=== PATIENT | male | born 1945 | race Caucasian/White ===

== ENCOUNTER 2022-04-12 07:05 | Day surgery (SDC) | payer MEDICARE, OTHER, SELFPAY ==
[2022-04-12] VITALS (9 sets, daily range): BP systolic 103–131; BP diastolic 55–80; PULSE 56–73; RESP 16–18; TEMP 36.7–37.1; O2SAT 16–98; BMI 28.4
[2022-04-12] MEDS: Lactated Ringers 1,000 ML 15 ML IV (07:30)
--- NOTE | 2022-04-12 08:42 | PCM.HP.BLA ---
History and Physical Date of Admission: 04/12/22 Intake Vital Signs ? 04/11/2208:21 Height 5 ft 10 in Weight: 198 lb 6 oz BMI 28.4 BP 130/71 H Blood Pressure Location Rt brachial Position Sitting Respiration 16 Pulse 96 Pulse Source Monitor Temp 97.5 F L Temp Source Temporal Pulse Oximetry (%) 100 Oxygen Delivery Method room air Intake Visit Reasons:?PORT PLACEMENT Chief Complaint: port placement Concrete Tester Required: No Is patient in pain?: No Allergies No Known Drug Allergies Allergy (Unknown, Verified 04/11/22 08:23) Other Medications hydrochlorothiazide 12.5 mg capsule 12.5 mg PO DAILY 03/18/22 [History Confirmed 04/11/22] tamsulosin 0.4 mg capsule 0.4 mg PO DAILY 03/18/22 [History Confirmed 04/11/22] rosuvastatin 5 mg tablet 5 mg PO DAILY 03/24/22 [History Confirmed 04/11/22] allopurinol 300 mg tablet 300 mg PO DAILY 30 days #30 tabs 04/06/22 [Rx Confirmed 04/11/22] valsartan 320 mg tablet 160 mg PO DAILY 04/06/22 [History Confirmed 04/11/22] lidocaine-prilocaine 2.5 %-2.5 % topical cream 1 applic topical ONCE PRN port access 30 days #30 grams 04/07/22 [Rx Confirmed 04/11/22] ondansetron 4 mg disintegrating tablet 4 mg PO Q8H PRN nausea and vomiting #30 tabs 04/07/22 [Rx Confirmed 04/11/22] PFSH Medical History? Encounter for education Follicular lymphoma Hypercholesterolemia Hypertension Lipoma of skin and subcutaneous tissue Surgical History? Hx of hernia repair Social History? household members:? spouse Smoking Status:? Never smoker alcohol intake:? never substance use type:? does not use caffeine:? Yes Type: coffee Number of servings: 1 HPI HPI HPI: 76-year-old male here for port placement for lymphoma.? Patient has no complaints at this time.? He is starting chemotherapy next week. ROS General General: No weight change, appetite, fatigue, colon cancer, breast cancer or weakness HEENT HEENT: No difficulty swallowing, eye injury, eye surgery, swollen glands or hoarseness Endo Endocrine: No thyroid disease, diabetes mellitus, thyroid cancer, Hair loss, heat intolerance or cold intolerance Skin Skin: No rash or changing moles Breast Breast: No left breast lump, right breast lump, nipple discharge, breast pain, abnormal mammogram, abnormal US or breast enlargement Musc Musculoskeletal: No back problems, arthritis, rheumatoid arthritis, gout or joint pain Cardio Cardiovascular: Yes high blood pressure; No murmur, pacemaker, heart disease, atrial fibrillation, heart attack, heart stent, palpitations, shortness of breat with exertion or chest pain Psych Psychiatric: No depression, anxiety or hearing voices Resp Respiratory: No shortness of breath, No sleep apnea, No cough, No COPD, No asthma, No emphysema and No wheezing Gastro Gastrointestinal: No abdominal pain, No nausea or vomiting, No diarrhea, No constipation, No blood in stool, No acid reflux, No hemorrhoids, No ulcers, No gallbladder problem and No black,tarry stools Jake Hematologic: No blood thinners, No blood disorders, No bleeding, No anemia and No blood clots Neuro Neurologic: No system reviewed and no additional complaints, except as documented, No as per HPI, No abnormal gait, No abnormal hearing, No abnormal movements, No abnormal speech, No behavioral changes, No burning sensations, No confusion, No convulsions, No disequilibrium, No dizziness, No localized weakness, No frequent falls, No headache(s), No lack of coordination, No loss of vision, No memory loss, No numbness, No other visual disturbances, No radicular pain, No restless legs, No sensory deficit, No syncope, No tingling, No tremor(s), No weakness and No other Exam Const General: cooperative Orientation: alert and oriented x3 HENMT Head: normal to inspection Neck Neck: normal visual inspection and full ROM Chest Chest palpation & inspection: normal inspection of the chest Resp Effort & Inspection: normal respiratory effort Auscultation: clear to auscultation bilaterally Cardio Rate: regular rate Rhythm: regular rhythm GI Inspection: non-distended Palpation: soft and nontender Skin General: no rashes or lesions noted Neuro General: patient alert and patient oriented x3 Extrem General: full ROM Psych Appearance: grossly normal Mental Status: mental status grossly normal Assessment and Plan Assessment and Plan (1) Encounter for insertion of venous access port: ?Status:?Acute ?Plan: I guess for placement with the patient in detail.? I discussed right chest placement.? I discussed the risks of the procedure including not limited to bleeding, infection, pneumothorax, DVT formation.? Patient understands all the risks as well to proceed with right chest port placement. Harrison Ag MD Pager: [facility] [address] [place] [address] [address] [place] [address] Office: I have re-examined the patient. There are no clinical changes since date of exam.
[2022-04-12] MEDS: Cefazolin 2 GM in 0.9% Normal Saline 100 ML IV (09:06)
[2022-04-12] MEDS: Lidocaine 1% /Epi 1:100 (20ml) 20 ML Vial (09:21)
--- NOTE | 2022-04-12 09:47 | RAD_ITS ---
INDICATION: line placement -- in pacu EXAMINATION/TECHNIQUE: X-RAY - XR Chest 1 View COMPARISON: None. FINDINGS: LINES/DEVICES: Right chest port visualized with catheter tip in the SVC. LUNGS: No consolidation, edema or effusion. No evidence of parenchymal contusion or pneumothorax. MEDIASTINUM AND CARDIOVASCULAR STRUCTURES: Cardiac silhouette not enlarged. Central airways and mediastinal contour are unremarkable. BONES AND SOFT TISSUES: Unremarkable. RAD/CXR for Line Placement IMPRESSION: Right chest port visualized with catheter tip in the SVC. No evidence of parenchymal contusion or pneumothorax. Electronically Signed: Tomy Mccurdy MD at 10:16 EDT ,
--- NOTE | 2022-04-12 09:47 | OP.PCM_ITS ---
Report of Operation Date of Procedure: 04/12/22 Pre-Operative Diagnosis: Lymphoma and need for vascular access for chemotherapy Post-Operative Diagnosis: Same Surgery/Procedure Performed:: Ultrasound and fluoroscopy guided right chest port placement utilizing right IJ Description of Procedure: After obtaining informed consent patient was brought back to the operating room MAC anesthesia was induced and the right chest and neck were prepped in normal sterile fashion. Ultrasound was used to evaluate both IJs and the right IJ was selected. Next, using a needle, the right IJ was accessed and a guidewire was passed on into the superior vena cava under fluoroscopy guidance. A small incision was made over the puncture site and the dilator introducer was placed over the guidewire. Next this was capped and the pocket was made for the port. 1% lidocaine with epinephrine was injected in the proposed port site. An incision was made with scalpel. Electrocautery was used to make a pocket under the skin and subcutaneous tissue. Hemostasis was obtained. Next, the catheter was tunneled up to the neck incision site and placed through the introducer. The peel-away introducer was removed and the position of the catheter was confirmed on fluoroscopy. Next, the catheter was trimmed and attached to the port with the locking device. Interrupted 2-0 Vicryl sutures were used to anchor the port to the chest wall and then the port was placed inside the pocket. The pocket was then flushed with saline and the port irrigated with saline. There was good blood return and the port flushed easily. Next, heparin was injected into the port. The skin was closed with subcutaneous interrupted 3-0 Vicryl sutures. A single 3-0 Vicryl sutures placed under the skin at the neck incision site. Steri-Strips were placed as well as op sites. Patient tolerated procedure well, was taken to PACU in stable condition. Chest x-ray will be obtained. Grafts/Implants Used: 8 [place] PowerPort Admit VTE Documentation VTE Mechan Device Prophylaxis: SCD's
--- NOTE | 2022-04-12 09:49 | DCINST_ITS ---
Discharge Instructions Procedure Port-A-Cath Diet Discharge Diet: Light diet - advance as tolerated (Pain medication may cause nausea. You should typically eat light foods as you take your pain medication.) Activity Discharge Activity: Return to Normal Activity and May Shower (with your bandage in place in 1-2 days after surgery. DO NOT SHOWER WHEN YOUR PORT IS ACCESSED.) Dressing / Incision Call your doctor if your incision/area has: Continuous Slow Oozing, Sudden Increased Bleeding, Increased Pain/ Swelling, Increased Redness and Foul Smelling Discharge Call your doctor if you observe: Fever of 101 or Higher Remove Dressing in: 2 days Cleanse incision/area with: Soap & Water Follow Up Care Please Follow Up With: Harrison Ag MD When: as needed [phone] Test Results: Test results from this visit will be discussed in further detail at your follow- up appointment, if applicable. Discharge Plan Admission Attending Provider: Harrison Ag Primary Care Provider: Jensen Kennedy NP Instructions Additional Instructions / Restrictions: Ibuprofen and Tylenol for pain Discharge Orders/Prescriptions Prescriptions: No Action hydrochlorothiazide 12.5 mg capsule 12.5 mg PO DAILY tamsulosin 0.4 mg capsule 0.4 mg PO DAILY valsartan 320 mg tablet 160 mg PO DAILY lidocaine-prilocaine 2.5-2.5 % cream 1 applic topical ONCE PRN (Reason: port access) 30 Days Qty: 30 2RF ondansetron 4 mg tablet,disintegrating 4 mg PO Q8H PRN (Reason: nausea and vomiting) Qty: 30 2RF allopurinol 300 mg tablet 300 mg PO DAILY 30 Days Qty: 30 0RF Rx Instructions: Start April 10 for 1 month, no refills Referrals / Follow Up: Jensen Kennedy NP, [employer] [Primary Care Provider] - Disposition Disposition (needs filled in before D/C Order can be placed): Home, Self Care
== END 2022-04-12 11:08 | disposition home or self-care (01) ==
LOC: SDC 07:07 → AC 07:09
PROVIDERS: PCP Nurse Practitioner Family; Referring Provider Surgery; Visit Provider Surgery
PROC: (CPT 36561; principal; 2022-04-12 09:00)
DX: Z45.2 Encounter for adjustment and management of vascular access device (principal); C82.90 Follicular lymphoma, unspecified, unspecified site; E78.00 Pure hypercholesterolemia, unspecified; I10 Essential (primary) hypertension; Z79.899 Other long term (current) drug therapy
CPT/HCPCS: 36561; 00532; 71045; 77001; J7120; C1788

== ENCOUNTER → 2022-07-06 | Outpatient (CLI) | payer MEDICARE, OTHER, SELFPAY ==
--- NOTE | 2022-07-06 13:00 | CT_ITS ---
STUDY: CT BRAIN WITH AND WITHOUT CONTRAST REASON FOR EXAM: Male, 76 years old. MONITOR LYMPHOMA RADIATION DOSAGE (If Supplied By Facility): CTDIvol = ( 44.99 ) mGy, DLP = ( 1659.71 ) mGycm TECHNIQUE: Transaxial CT imaging of the brain was performed pre and post contrast administration. The examination was performed with intravenous administration of 100 CC ISOVUE 300. Individualized dose optimization techniques were used for this CT. COMPARISON: None. FINDINGS: Normal soft tissue structures. Normal calvarium. Normal size ventricles and extra-axial spaces for the patient''s age. Normal white matter tracts of the cerebral hemispheres. Normal basal ganglia and thalami. Normal brainstem. Normal cerebellum. There is no intracranial hemorrhage. There are no findings of an acute ischemic infarction. There is partial opacification of the maxillary sinuses bilaterally. Mucosal thickening of the ethmoid sinuses. CT/Brain/Head W/WO Contrast IMPRESSION: Normal unenhanced and enhanced CT scan of the brain. Sinusitis. Electronically Signed: Ernesto Zapata MD at 14:40 EST ,
--- NOTE | 2022-07-06 13:00 | CT_ITS ---
STUDY: CT SOFT TISSUE NECK WITH CONTRAST REASON FOR EXAM: Male, 76 years old. Restaging lymphoma while on treatment RADIATION DOSAGE (If Supplied By Facility): CTDIvol = ( 17.15 ) mGy, DLP = ( 535.67 ) mGycm TECHNIQUE: The patient was scanned in a multi-detector CT scanner. High resolution transaxial imaging was performed following intravenous administration of 100 CC ISOVUE 300. Sagittal and coronal images were reconstructed. Individualized dose optimization techniques were used for this CT. COMPARISON: None. FINDINGS: A right-sided portacatheter is seen with the tip in the superior vena cava. There is a 1.3 cm x 1.4 cm heterogeneous enhancing soft tissue mass in the right orbit posterior to the globe. This abuts the adjacent ocular muscle. Normal bilateral parotid glands. Normal bilateral bucket wash operator spaces. Normal bilateral parapharyngeal spaces. Normal bilateral carotid spaces. Normal bilateral sublingual and submandibular glands and spaces. Normal visualized nasopharynx. Normal retropharyngeal space. Normal perivertebral space. Normal visualized bilateral faucial tonsils. The visualized tongue, tongue base and oropharynx are normal. The visualized cervical lymph nodes (levels I-) are within normal size limits, and maintain normal morphology. There is no demonstrated solid or cystic mass lesion. There is no abnormal contrast enhancement. Normal epiglottis, bilateral vallecula and hypopharynx. The pre-epiglottic and paraglottic adipose spaces are normal. Normal visualized bilateral piriform sinuses, aryepiglottic folds, vocal cords, and arytenoid-cricoid articulations. Normal subglottic trachea. Normal bilateral lobes of the thyroid gland. Normal visualized pulmonary apices. Partial opacification of the maxillary sinuses bilaterally. There is multilevel degenerative changes of the cervical spine. CT/Soft Tissue Neck WITH Contrast IMPRESSION: 1.3 cm x 1.4 cm inhomogeneously enhancing mass in the right orbit just posterior to the right globe. A neoplastic process should be able. Partial opacification of the maxillary sinuses bilaterally. Electronically Signed: Ernesto Zapata MD at 14:46 EST ,
[2022-07-06] MEDS: 0.9% Saline Lock 10 ML Syringe IV (13:20)
== END | disposition home or self-care (01) ==
LOC: CT 12:58
PROVIDERS: PCP Nurse Practitioner Family; Referring Provider Internal Medicine Hematology & Oncology; Visit Provider Internal Medicine Hematology & Oncology
DX: C85.81 Other specified types of non-Hodgkin lymphoma, lymph nodes of head, face, and neck (principal); C82.90 Follicular lymphoma, unspecified, unspecified site
CPT/HCPCS: 70470; 70491; Q9967; A4216

== ENCOUNTER → 2022-08-02 | Outpatient (CLI) | payer MEDICARE, OTHER, SELFPAY ==
--- NOTE | 2022-08-02 08:11 | MRI_ITS ---
STUDY: MRI ORBITS WITH AND WITHOUT CONTRAST REASON FOR EXAM: Male, 76 years old. NODULE BEHIND R ORBITAL, f/u to ct scan, no vision issues, hx B cell lymphoma TECHNIQUE: Standardized fat and water weighted pulse sequences were obtained in all 3 orthogonal planes, pre-and post contrast administration. IV 17ml Clariscan was administered for the contrast portion of the examination. COMPARISON: Whole body PET/CT fusion scan 03/30/2022. CT head without contrast and CT neck with contrast 07/06/2022. FINDINGS: 1.6 x 1.5 x 1.2 cm solid mass in the lateral caudal aspect of the right orbital fossa with contrast enhancement. The extraocular muscles, lacrimal gland, optic nerves and optic nerve sheath in the right orbital fossa are normal. Normal left orbital globe, left optic nerve, left optic nerve sheath, left lacrimal gland and left extraocular muscles. Normal optic chiasm and post-chiasmatic tracts. Normal sella turcica, pituitary gland, infundibular stalk, and hypothalamus. Normal bilateral cavernous sinuses. Normal tectal plate and pineal gland. Normal flow voids within the major intracranial circulation suggesting patency by spin echo criteria. Normal size of the ventricles and extra-axial spaces for the patient''s age. Normal white matter tracts of the supratentorial brain. Normal bilateral basal ganglia. Normal thalami. There is no extra-axial fluid accumulation. Normal midbrain, janette and medulla. Normal cerebellum. Normal basal cisterns. MRI/Orbit Face Neck W/WO Contrast IMPRESSION: 1. 1.6 x 1.5 x 1.2 cm solid enhancing mass in the lateral caudal aspect of the right orbital fossa without involvement of the lacrimal gland, optic nerve, extraocular muscles and orbital globe. This is worrisome for lymphoma but this is not FDG avid and unchanged when compared to whole body PET/CT fusion scan of 03/30/2022. 2. Focal atrophy and collapse of the left temporal scalp mass. This mass was previously FDG avid on the PET/CT fusion scan of 03/30/2022. 3. Interval collapse of the right lateral frontal scalp mass which was previously FDG avid on PET/CT fusion scan of 03/30/2022. Electronically Signed: Alin Salter MD at 12:01 EST ,
== END | disposition home or self-care (01) ==
LOC: MRI 08:02
PROVIDERS: PCP Nurse Practitioner Family; Visit Provider Internal Medicine Hematology & Oncology
DX: R22.0 Localized swelling, mass and lump, head (principal)
CPT/HCPCS: 70543; A9575

== ENCOUNTER → 2023-02-20 | Outpatient (CLI) | payer MEDICARE, OTHER, SELFPAY ==
--- NOTE | 2023-02-20 07:00 | MRI_ITS ---
STUDY: MRI ORBITS WITH AND WITHOUT CONTRAST REASON FOR EXAM: Male, 77 years old. F/U RIGHT ORBIT NODULE TECHNIQUE: Standardized fat and water weighted pulse sequences were obtained in all 3 orthogonal planes, pre-and post contrast administration. IV 19 CC CLARISCAN was administered for the contrast portion of the examination. COMPARISON: None. FINDINGS: 1.38 x 0.90 cm intensely enhancing right lateral retrobulbar mass; favor meningioma or hemangioma, however definitive diagnosis would require tissue sampling or excision. The mass does not infiltrate into the adjacent structures or the overlying optic nerve complex but does make contact with the investing sheath of the lateral rectus muscle which is slightly thickened at its point of contact. Mild bilateral optic neuritis is also present with slight fluid distention nerve sheath at the optic insertion sites. Normal bilateral globes. Normal bilateral optic nerves. Normal bilateral intraconal and extraconal spaces. Normal bilateral extraocular muscles. Normal optic chiasm and post-chiasmatic tracts. Normal sella turcica, pituitary gland, infundibular stalk, and hypothalamus. Normal bilateral cavernous sinuses. Normal tectal plate and pineal gland. IMPRESSION: 1. 1.38 x 0.90 cm intensely enhancing right lateral retrobulbar mass; favor meningioma or hemangioma, however definitive diagnosis would require tissue sampling or excision. The mass does not infiltrate into the adjacent structures or the overlying optic nerve complex but does make contact with the investing sheath of the lateral rectus muscle which is slightly thickened at its point of contact. 2. Mild bilateral optic neuritis is also present with slight fluid distention nerve sheath at the optic insertion sites. STUDY: MRI BRAIN WITH AND WITHOUT CONTRAST FINDINGS: Normal size of the ventricles and extra-axial spaces for the patient''s age. Normal white matter tracts of the supratentorial brain. There is no evidence for recent intracranial ischemia or other cause of cytotoxic edema on diffusion weighted imaging (DWI). Normal T2* images of the brain without demonstrated susceptibility artifact. There is no demonstrated hemosiderin stain. There are no focal brain parenchymal lesions or edema. There is no abnormal enhancement of the brain parenchyma or meninges or dura. Normal bilateral basal ganglia. Normal thalami. There is no extra-axial fluid accumulation. Normal flow voids within the major intracranial circulation suggesting patency by spin echo criteria. Normal venous enhancement. There is no enhancing intra-axial or extra-axial abnormality. Normal sella turcica, pituitary gland, infundibular stalk, optic chiasm and hypothalamus. Normal tectal plate and pineal gland. Normal midbrain, janette and medulla. Normal cerebellum. Normal basal cisterns. Normal bilateral temporal bones. Normal bilateral internal auditory canals. Moderate-sized mucus retention cyst is present in the floor of the right maxillary sinus. Mild mucosal thickening is also present in the left maxillary sinus and ethmoid air cells. Normal calvarium and skull base. Normal visualized soft tissue structures. Normal visualized upper cervical spine. MRI/Orbit Face Neck W/WO Contrast IMPRESSION: 1. Normal unenhanced and enhanced MRI of the brain. 2. There are no focal brain parenchymal lesions or edema. There is no abnormal enhancement of the brain parenchyma or meninges or dura. Electronically Signed: Meet Landry MD at 12:21 EDT Reading Location ID and State: [facility] / [place] , Service support ,
[2023-02-20 07:56] LABS: CREATININE FINGERSTICK 0.9 mg/dL (0.70-1.30); EGFR FINGERSTICK > 60.0000 mL/min (>60)
== END | disposition home or self-care (01) ==
LOC: MRI 06:58
PROVIDERS: PCP Nurse Practitioner Family; Referring Provider Internal Medicine Hematology & Oncology; Visit Provider Internal Medicine Hematology & Oncology
DX: D49.89 Neoplasm of unspecified behavior of other specified sites (principal)
CPT/HCPCS: 70543; A9575

== ENCOUNTER → 2023-06-12 | Outpatient (CLI) | payer MEDICARE, OTHER, SELFPAY ==
--- NOTE | 2023-06-12 12:52 | CT_ITS ---
STUDY: CT BRAIN WITH AND WITHOUT CONTRAST REASON FOR EXAM: Male, 77 years old. Severe headache, known lymphoma RADIATION DOSAGE (If Supplied By Facility): CTDIvol = ( 44.99 ) mGy, DLP = ( 1580.97 ) mGycm TECHNIQUE: Transaxial CT imaging of the brain was performed pre and post contrast administration. The examination was performed with intravenous administration of IV 100mL Isovue-300. Individualized dose optimization techniques were used for this CT. COMPARISON: None. FINDINGS: Normal soft tissue structures. Normal calvarium. Normal size ventricles and extra-axial spaces for the patient''s age. Normal white matter tracts of the cerebral hemispheres. Normal basal ganglia and thalami. Normal brainstem. Normal cerebellum. There is no intracranial hemorrhage. There are no findings of an acute ischemic infarction. Mucous retention cysts/polyps in the maxillary sinuses CT/Brain/Head W/WO Contrast IMPRESSION: Age consistent changes, no acute findings Electronically Signed: Celio Perez MD at 15:04 EST ,
--- NOTE | 2023-06-12 12:52 | CT_ITS ---
INDICATION: F/U HEAD/NECK LYMPHOMA EXTRACRANIAL -- EXTRACRANIAL IV CONT ONLY EXAMINATION: CT NECK WITH CONTRAST - CT Soft Tissue Neck W/ Contrast Injection TECHNIQUE: Helically acquired images were obtained of the neck following IV contrast. A radiation dose optimization technique was used for this scan. IV Contrast dosage and agent: RADIATION DOSAGE (If Supplied By Facility): CTDIvol = ( 16.74 ) mGy, DLP = ( 551.96 ) mGycm COMPARISON: FINDINGS: There is a relatively stable 1.3 cm mass abuts against the right lateral rectus muscle. NASOPHARYNX: Unremarkable. Mucosal thickening of the maxillary sinuses. Possible right with maxillary sinus retention cyst. SUPRAHYOID NECK: Unremarkable oropharynx, oral cavity, parapharyngeal space, and retropharyngeal space. INFRAHYOID NECK: Unremarkable larynx, hypopharynx, and supraglottis. THYROID: No focal lesions. SALIVARY GLANDS: Unremarkable. LYMPH NODES: No cervical or supraclavicular lymphadenopathy. VASCULAR STRUCTURES: There is a right-sided jugular venous line.. VISUALIZED PORTIONS OF THE ORBITS, PARANASAL SINUSES, MASTOID AIR CELLS AND SKULL BASE: Unremarkable. BONES: Degenerative cervical vertebral changes. THORACIC INLET: Right upper lobe calcified granuloma. CT/Soft Tissue Neck WITH Contrast IMPRESSION: Relatively stable right orbital intraconal mass. Electronically Signed: Ellis Martin DO at 22:43 EST Reading Location ID and State: [facility] / [place] Tel [phone], Service support ,
[2023-06-12 13:27] LABS: EGFR FINGERSTICK > 60.0000 mL/min (>60)
[2023-06-12] MEDS: 0.9% Saline Lock 10 ML Syringe IV (13:30)
== END | disposition home or self-care (01) ==
LOC: CT 12:48
PROVIDERS: PCP Nurse Practitioner Family; Referring Provider Internal Medicine Hematology & Oncology; Visit Provider Internal Medicine Hematology & Oncology
DX: C82.90 Follicular lymphoma, unspecified, unspecified site (principal)
CPT/HCPCS: 70470; 70491; Q9967; A4216

== ENCOUNTER → 2023-11-30 | Outpatient (CLI) | payer MEDICARE, OTHER, SELFPAY ==
--- NOTE | 2023-11-30 07:40 | CT_ITS ---
STUDY: CT SOFT TISSUE NECK WITH CONTRAST REASON FOR EXAM: Male, 78 years old. follicular lymphoma RADIATION DOSAGE (If Supplied By Facility): CTDIvol = ( 18.71 ) mGy, DLP = ( 572.03 ) mGycm TECHNIQUE: The patient was scanned in a multi-detector CT scanner. High resolution transaxial imaging was performed following intravenous administration of IV 100mL Isovue-370. Sagittal and coronal images were reconstructed. Individualized dose optimization techniques were used for this CT. COMPARISON: 06/12/2023 FINDINGS: Normal bilateral parotid glands. Normal bilateral presentation designer spaces. Normal bilateral parapharyngeal spaces. Normal bilateral carotid spaces. Normal bilateral sublingual and submandibular glands and spaces. Normal visualized nasopharynx. Normal retropharyngeal space. Normal perivertebral space. Normal visualized bilateral faucial tonsils. The visualized tongue, tongue base and oropharynx are normal. The visualized cervical lymph nodes (levels I-) are within normal size limits, and maintain normal morphology. There is no change in 1.3 cm oval mass of soft tissue attenuation within the intraconal right orbit between the optic nerve, inferior rectus, and lateral rectus. There is no abnormal contrast enhancement. Normal epiglottis, bilateral vallecula and hypopharynx. The pre-epiglottic and paraglottic adipose spaces are normal. Normal visualized bilateral piriform sinuses, aryepiglottic folds, vocal cords, and arytenoid-cricoid articulations. Normal subglottic trachea. Normal bilateral lobes of the thyroid gland. Normal visualized pulmonary apices. Mucous retention cyst in the right mid x-ray sinus consistent with chronic sinusitis. There is multilevel degenerative changes of the cervical spine. Right internal jugular chest port. CT/Soft Tissue Neck WITH Contrast IMPRESSION: No change in right orbital intraconal mass. Electronically Signed: Jensen Palmer MD at 21:41 EDT ,
--- NOTE | 2023-11-30 07:40 | CT_ITS ---
STUDY: CT BRAIN WITH AND WITHOUT CONTRAST REASON FOR EXAM: Male, 78 years old. follicular lymphoma RADIATION DOSAGE (If Supplied By Facility): CTDIvol = ( 47.06 ) mGy, DLP = ( 1674.78 ) mGycm TECHNIQUE: Transaxial CT imaging of the brain was performed pre and post contrast administration. The examination was performed with intravenous administration of IV 100mL Isovue-370. Individualized dose optimization techniques were used for this CT. COMPARISON: 06/12/2023 FINDINGS: Normal soft tissue structures. Normal calvarium. Normal size ventricles and extra-axial spaces for the patient''s age. Normal white matter tracts of the cerebral hemispheres. Normal basal ganglia and thalami. Normal brainstem. Normal cerebellum. There is no intracranial hemorrhage. There are no findings of an acute ischemic infarction. Mucous retention cyst in the right mid x-ray sinus consistent with chronic sinusitis. CT/Brain/Head W/WO Contrast IMPRESSION: Normal unenhanced and enhanced CT scan of the brain. Electronically Signed: Jensen Palmer MD at 21:35 EDT ,
[2023-11-30 08:31] LABS: CREATININE FINGERSTICK 1.2 mg/dL (0.70-1.30)
== END | disposition home or self-care (01) ==
LOC: CT 07:39
PROVIDERS: PCP Nurse Practitioner Family; Referring Provider Nurse Practitioner Family; Visit Provider Nurse Practitioner Family
DX: Z01.812 Encounter for preprocedural laboratory examination (principal)
CPT/HCPCS: 70470; 70491; Q9967

== ENCOUNTER → 2024-10-10 | Outpatient (CLI) | payer MEDICARE, OTHER, SELFPAY ==
--- NOTE | 2024-10-10 07:34 | CT_ITS ---
PROCEDURE: SOFT TISSUE NECK WITH CONTRAST 10/10/2024 REASON FOR EXAM: FOLLICULAR LYMPHOMA Follow-up examination following chemotherapy. TECHNIQUE: CT of the soft tissues of the neck from the orbits to the upper mediastinum with intravenous contrast. CONTRAST: Isovue 370. VOLUME: 79mL One or more dose reduction techniques were used (e.g., Automated exposure control, adjustment of the mA and/or kV according to patient size, use of iterative reconstruction technique). RADIATION DOSE SUMMARY: CTDlvol: 18.54 mGy DLP: 578.8 mGycm COMPARISON: Comparison is made with prior study dated November 30, 2023. FINDINGS: A right-sided port a catheter is seen with the tip in the superior vena cava. Airway: Midline and patent. Salivary glands: Unremarkable. Lymph nodes: No cervical lymphadenopathy. Thyroid: Unremarkable. Vasculature: Carotid arteries and internal jugular veins are unremarkable. Orbits: There is a 1.1 cm x 1.2 cm rounded soft tissue mass in the intraconal region of the right orbit. Paranasal sinuses and mastoids: Partial opacification of the maxillary sinuses more prominent on the right side. Lung apices: Mild emphysematous changes. Upper mediastinum: Visualized mediastinum is unremarkable. Bones: Multilevel degenerative changes of the spine. Other: CT/Soft Tissue Neck WITH Contrast IMPRESSION: NO CERVICAL LYMPHADENOPATHY. 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 Reading Location: [place] [id number]
[2024-10-10] MEDS: 0.9% Saline Lock 10 ML Syringe IV ×2 (07:45→07:50)
[2024-10-10] MEDS: 0.9 % NaCl (Sterile) Posiflush 10 mL IV (07:45)
== END | disposition home or self-care (01) ==
LOC: CT 07:34
PROVIDERS: PCP Nurse Practitioner Family; Referring Provider Nurse Practitioner Family; Visit Provider Nurse Practitioner Family
DX: C82.98 Follicular lymphoma, unspecified, lymph nodes of multiple sites (principal)
CPT/HCPCS: 70491; Q9967; A4216

== ENCOUNTER → 2025-04-14 | Outpatient (CLI) | payer MEDICARE, OTHER, SELFPAY ==
--- NOTE | 2025-04-14 07:31 | CT_ITS ---
PROCEDURE: SOFT TISSUE NECK WITH CONTRAST 04/14/2025 REASON FOR EXAM: SCALP LYMPHOMA F/U TECHNIQUE: Procedure Code: CTNEW Modality: CT Procedure: SOFT TISSUE NECK WITH CONTRAST CONTRAST: 75 cc VOLUME: Isovue 370 mL One or more dose reduction techniques were used (e.g., Automated exposure control, adjustment of the mA and/or kV according to patient size, use of iterative reconstruction technique). RADIATION DOSE SUMMARY: CTDlvol: 18 mGy DLP: 592 mGycm COMPARISON: 09/2024 FINDINGS: Lung apices are clear. Normal thyroid gland. No subglottic airway narrowing. Symmetric vocal folds. Normal epiglottis. Normal submandibular glands. Normal parotid glands. Normal nasopharynx. Normal tongue base. Normal palatine tonsils. No enlarged cervical lymph nodes. No supraclavicular enlarged lymph nodes. 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 This was present previously CT/Soft Tissue Neck WITH Contrast IMPRESSION: No interval change when compared to the prior study. Reading [facility]
--- OUTSIDE RECORDS SUMMARY | 2025-04-14 07:33 | XMS RPT_ITS | CCD ---
Author Organization [facility] CliniSywy Care Team Providers Care Acid Tester Name Role Phone BRENT ESPINAL - MOY REVELES Primary Care Phys ician Brent RECEIVING COORDINATOR, RECEIVING COORDINATOR-C Moy Almodovar Primary Care Pr ovider Brent RECEIVING COORDINATOR, RECEIVING COORDINATOR-C Moy Almodovar Referring Provi liliana Dr. Facundo Beatty Attending Provider Makayla QUIJANO NP-Sarah Beth Dumont Attending Provider Dr. Harrison Ag Attending Provider [phone] Dr. Harrison Ag Referring Provider Dr. Harrison Ag Other Provider Brent RECEIVING COORDINATOR, RECEIVING COORDINATOR-C Moy Almodovar Primary Care Pr ovider Brent RECEIVING COORDINATOR, RECEIVING COORDINATOR-C Moy Almodovar Referring Provi liliana Dr. Facundo Beatty Attending Provider Makayla RECEIVING COORDINATORMACIE-Sarah Beth Dumont Attending Provider Brent RECEIVING COORDINATOR, RECEIVING COORDINATOR-C Moy Almodovar Primary Care Pr ovider Brent RECEIVING COORDINATOR, RECEIVING COORDINATOR-C Moy Almodovar Referring Provi liliana Dr. Facundo Beatty Attending Provider Brent RECEIVING COORDINATOR, RECEIVING COORDINATOR-C Moy Almodovar Primary Care Pr ovider Brent RECEIVING COORDINATOR, RECEIVING COORDINATOR-C Moy Almodovar Referring Provi liliana Dr. Facundo Beatty Attending Provider BRENT HEAD OF DATA - SAND CUTTING MACHINE OPERATOR, MOY Quezada Primary Care U navailable BRENT HEAD OF DATA - SAND CUTTING MACHINE OPERATOR, MOY Quezada Attending U navailable BRENT HEAD OF DATA - SAND CUTTING MACHINE OPERATOR, MOY Quezada Attending U navailable BRENT HEAD OF DATA - SAND CUTTING MACHINE OPERATOR, MOY Quezada Primary Care U navailable [place] RECEIVING COORDINATOR-C, Moy Almodovar Primary Care Provi liliana Brent RECEIVING COORDINATOR-C, Moy Almodovar Referring Provider Makayla RECEIVING COORDINATOR-C, Julia Attending Provider Rogerio LUI, Dr. Loredo Attending Provider Rogerio LUI, Dr. Loredo Referring Provider Makayla RECEIVING COORDINATOR-C, Julia Referring Provider BRENT HEAD OF DATA - SAND CUTTING MACHINE OPERATOR, MOY Quezada Primary Care U navailable BRENT HEAD OF DATA - SAND CUTTING MACHINE OPERATOR, MOY Quezada Attending U navailable BRENT HEAD OF DATA - SAND CUTTING MACHINE OPERATOR, MOY Quezada Attending U navailable BRENT HEAD OF DATA - SAND CUTTING MACHINE OPERATOR, MOY Quezada Primary Care U navailable BRENT HEAD OF DATA - SAND CUTTING MACHINE OPERATOR, MOY Quezada Attending U navailable BRENT HEAD OF DATA - SAND CUTTING MACHINE OPERATOR, MOY Quezada Primary Care U navailable BRENT HEAD OF DATA - SAND CUTTING MACHINE OPERATOR, MOY Quezada Primary Care U liane JUDD MD, DR [facility] Admitting Joleen JUDD MD, DR [facility] Attending Hattievai lable BRENT HEAD OF DATA - SAND CUTTING MACHINE OPERATOR, MOY Quezada Primary Care U liane JUDD MD, DR [facility] Attending Joleen POTTS MD, STORM Miranda Attending Unavail able BRENT HEAD OF DATA - SAND CUTTING MACHINE OPERATOR, MOY Quezada Primary Care U navailable BRENT HEAD OF DATA - SAND CUTTING MACHINE OPERATOR, MOY Quezada Primary Care U yaailable KATLYN LUI, STORM Miranda Attending Unavail able Brent RECEIVING COORDINATOR-C, Moy Almodovar Primary Care Provi liliana Makayla RECEIVING COORDINATOR-C, Julia Attending Provider Brent RECEIVING COORDINATOR-C, Moy Almodovra Referring Provider Rogerio LUI, Dr. Loredo Attending Provider Rogerio LUI, Dr. Loredo Referring Provider Brent RECEIVING COORDINATOR, Moy Almodovar Referring Unav ailable [place] RECEIVING COORDINATOR, Moy Almodovar Primary Care Unav ailable Makayla RECEIVING COORDINATOR, Julia Attending Unavailable [place] RECEIVING COORDINATOR, Moy Almodovar Primary Care Unav ailable Isckarus, Facundo Attending Unavailable [place] RECEIVING COORDINATOR, Moy Almodovar Referring Unav ailable Isckarus, Mansour Attending Unavailable [place] RECEIVING COORDINATOR, Moy Almodovar Referring Unav ailable Brent RECEIVING COORDINATOR, Moy Almodovar Primary Care Unav ailable [place] RECEIVING COORDINATOR, Moy Almodovar Referring Unav ailable Brent RECEIVING COORDINATOR, Moy Almodovar Primary Care Unav ailable Isckarus, Mansour Attending Unavailable [place] RECEIVING COORDINATOR, Moy Almodovar Primary Care Unav ailable Makayla RECEIVING COORDINATOR, Julia Attending Unavailable Makayla RECEIVING COORDINATOR, Julia Referring Unavailable [place] RECEIVING COORDINATOR, Moy Almodovar Primary Care Unav ailable Isckarus, Facundo Attending Unavailable Isckarus, Facundo Referring Unavailable Isckarus, Facundo Referring Unavailable Brent RECEIVING COORDINATOR, Moy Almodovar Primary Care Unav ailable Isckarus, Facundo Attending Unavailable Allergies Allergy Classification Reported Allergen(s) Allergy Type Date of Onset Reaction(s) Facility (6 sources) Sulfamethoxazole / Trimethoprim; Translations: [sulfamethoxazole-tr imethoprim] Drug Allergy Weal (disorder) [facility] Work Phone: Medications Current Medications Medication Drug Class(es) Dates Sig (Normalized) Sig (Original) atorvastatin 10 mg oral tablet (1 source) HMG-CoA Reductase Inhibitor Start: 01-22-2021 End: 10-19-2021 atorvastatin 10 mg oral tablet Dose : 10 mg = 1 tab(s), Oral, qDay, X 90 day(s), # 90 tab(s), 2 Refill(s), 10/19/21 14:01:00 EDT, Pharmacy: [id number], Hyperlipidemia LDL goal Start Date: 01/22/21 Stop Date: 10/19/21 Status: Ordered calcium ascorbate 500 mg oral tablet (3 sources) Start: 03-02-2023 take 1 tablet by mouth once daily Ascorbate Calcium (Vitamin C) 500 mg tablet Active 500 mg PO DAILY March 02, 2023 12:00am cholecalciferol 0.025 mg oral capsule (2 sources) Vitamin D Start: 08-17-2023 take 1 capsule by mouth once daily Cholecalciferol (Vitamin D3) 25 mcg (1,000 unit) capsule Active 25 ug PO DAILY August 17, 2023 1:00am lidocaine 25 mg/ml / prilocaine 25 mg/ml topical cream (6 sources) Antiarrhythmic, Amide Local Anesthetic Start: 04-07-2022 Lidocaine-Prilocaine 2.5-2.5 % cream Active 1 NMA TOPICAL ONCE as needed for port access April 07, 2022 12:00am Start: 04-07-2022 Lidocaine-Pril ocaine Active 1 APPLIC TOPICAL ONCE April 06, 2022 11:00pm ondansetron 4 mg disintegrating oral tablet (6 sources) Serotonin-3 Receptor Antagonist Start: 04-07-2022 take 1 tablet by mouth every eight hours as needed for nausea and vomiting Ondansetron 4 mg tablet,disintegrating Active 4 mg PO Q8H as needed for nausea and vomiting April 07, 2022 12:00am AD (3 sources) Start: 07-04-2023 AD Oral, qDay, 0 Refill(s) Start Date: 07/04/23 Status: Ordered Repeat number: 1 Start: 07-04-2023 AD Or al, qDay, 0 Refill(s) Start Date: 07/04/23 Status: Ordered Vit-Iron Fum-Folic Ac ( Vitamin With Minerals) 28 mg iron- 800 mcg tablet (4 sources) Start: 01-05-2023 Vit-I ayden Fum-Folic Ac ( Vitamin With Minerals) 28 mg iron- 800 mcg tablet Active 1 {tbl} PO DAILY January 05, 2023 12:00am Start: 01-05-2023 take 1 tablet by paul th once daily before mealtime Vit-Iron Fum-Folic Ac ( Vitamin With Minerals) 28 mg iron- 800 mcg tablet Active 1 TABLET PO DAILY January 04, 2023 11:00pm Start: 01-05-2023 take 1 tablet by paul th once daily before mealtime Vit-Iron Fum-Folic Ac ( Vitamin With Minerals) 28 mg iron- 800 mcg tablet Active 1 TABLET PO DAILY January 05, 2023 12:00am sildenafil 50 mg oral tablet (5 sources) Phosphodiesterase 5 Inhibitor Start: 07-08-2024 End: 01-04-2025 Viagra 50 mg oral tablet Dose : 50 mg = 1 tab(s), Oral, qDay, as needed, # 6 tab(s), 5 Refill(s), Pharmacy: [id number], ED (erectile dysfunction), 174, cm, 07/08/24 8:32:00 EST, Height, kg, 07/08/24 8:32:00 EST, Dosing Weight Start Date: 07/08/24 Stop Date: 01/04/25 Status: Ordered Start: 07-04-2023 End: 12-31-2023 Viagra 50 mg oral tablet Dos e : 50 mg = 1 tab(s), Oral, qDay, as needed, # 6 tab(s), 5 Refill(s), Pharmacy: [id number], ED (erectile dysfunction), 174, cm, 07/04/23 8:08:00 EST, Height, kg, 07/04/23 8:08:00 EST, Dosing Weight Start Date: 07/04/23 Stop Date: 12/31/23 Status: Ordered Start: 07-01-2022 End: 06-25-2023 Viagra 50 mg oral tablet Dos e : 50 mg = 1 tab(s), Oral, qDay, as needed, # 6 tab(s), 5 Refill(s), Pharmacy: [id number], ED (erectile dysfunction), 175, cm, 12/27/22 8:58:00 EDT, Height, kg, 12/27/22 8:58:00 EDT, Dosing Weight Start Date: 12/27/22 Stop Date: 06/25/23 Status: Ordered Start: 12-24-2020 End: 07-22-2021 Viagra 50 mg oral tablet Dos e : 50 mg = 1 tab(s), Oral, qDay, as needed, # 6 tab(s), 6 Refill(s), Pharmacy: [id number], ED (erectile dysfunction), 175, cm, 12/24/20 8:01:00 EDT, Height, kg, 12/24/20 8:01:00 EDT, Dosing Weight Start Date: 12/24/20 Stop Date: 07/22/21 Status: Ordered tamsulosin hydrochloride 0.4 mg oral capsule (11 sources) alpha-Adrenergic Tahmina Start: 03-18-2022 End: 01-16-2025 Flomax 0.4 mg oral capsule Dose : 0.4 mg = 1 cap(s), Oral, qDay, # 90 cap(s), 1 Refill(s), Pharmacy: [id number], BPH without urinary obstruction, 174, cm, 07/08/24 8:32:00 EST, Height, kg, 07/08/24 8:32:00 EST, Dosing Weight Start Date: 07/08/24 Stop Date: 01/04/25 Status: Ordered Start: 12-24-2020 End: 09-20-2021 Flomax 0.4 mg oral capsule D ose : 0.4 mg = 1 cap(s), Oral, qDay, # 90 cap(s), 2 Refill(s), Pharmacy: [id number], BPH without urinary obstruction, 175, cm, 12/24/20 8:01:00 EDT, Height, kg, 12/24/20 8:01:00 EDT, Dosing Weight Start Date: 12/24/20 Stop Date: 09/20/21 Status: Ordered valsartan 80 mg oral tablet (20 sources) Angiotensin 2 Receptor Tahmina Start: 01-16-2025 take 1 tablet by mouth once daily Valsartan 80 mg tablet Active 80 mg PO DAILY January 16, 2025 2:57pm Start: 07-08-2024 Diovan 80 mg o ral tablet Dose : 80 mg = 1 tab(s), Oral, qDay, # 90 tab(s), 1 Refill(s), Pharmacy: [id number], HTN, goal below 140/90, 174, cm, 07/08/24 8:32:00 EST, Height, kg, 07/08/24 8:32:00 EST, Dosing Weight Start Date: 07/08/24 Status: Ordered Quantity: 90.0 Unit: tab(s) Repeat number: 2 Indications: Essential (primary) hypertension; Start: 07-04-2023 Diovan 80 mg o ral tablet Dose : 80 mg = 1 tab(s), Oral, qDay, # 90 tab(s), 1 Refill(s), Pharmacy: [id number], HTN, goal below 140/90, 174, cm, 07/04/23 8:08:00 EST, Height, kg, 07/04/23 8:08:00 EST, Dosing Weight Start Date: 07/04/23 Status: Ordered Start: 03-02-2023 End: 01-16-2025 take 2 tablets by mouth once daily Valsartan 80 mg tablet Discontinued 160 mg PO DAILY March 02, 2023 10:10am January 16, 2025 2:58pm Start: 03-02-2023 take 160 mg by mouth once gerber y Valsartan Active 160 MG PO DAILY March 02, 2023 9:10am Start: 12-27-2022 End: 03-02-2023 take 1 tablet by mouth once daily Valsartan 80 mg tablet Discontinued 80 mg PO DAILY January 05, 2023 12:00am March 02, 2023 10:10am Start: 07-01-2022 End: 10-29-2022 Diovan 160 mg oral tablet Do se : 160 mg = 1 tab(s), Oral, qDay, # 90 tab(s), 1 Refill(s), Pharmacy: [id number], 175, cm, 07/01/22 8:17:00 EST, Height, kg, 07/01/22 8:17:00 EST, Dosing Weight Start Date: 07/01/22 Stop Date: 10/29/22 Status: Ordered Start: 04-06-2022 End: 01-05-2023 Valsartan 320 mg tablet Disc ontinued 160 mg PO DAILY April 06, 2022 2:50pm January 05, 2023 8:49am Start: 04-06-2022 End: 01-05-2023 take 160 mg by mouth once daily Valsartan Discontinued 160 MG PO DAILY April 06, 2022 1:50pm January 05, 2023 7:49am Start: 03-18-2022 End: 04-06-2022 take 1 tablet by mouth once daily Valsartan 320 mg tablet Discontinued 320 mg PO DAILY March 18, 2022 12:00am April 06, 2022 2:51pm Start: 12-24-2020 End: 09-20-2021 Diovan 320 mg oral tablet Do se : 320 mg = 1 tab(s), Oral, qDay, Discontinue the Ramipril, # 90 tab(s), 2 Refill(s), Pharmacy: [facility], HTN, goal below 140/90, 175, cm, 12/24/20 8:01:00 EDT, Height, kg, 12/24/20 8:01:00 EDT, Dosing Weight Start Date: 12/24/20 Stop Date: 09/20/21 Status: Ordered Completed/Discontinued Medications Medication Drug Class(es) Dates Sig (Normalized) Sig (Original) allopurinol 300 mg oral tablet (6 sources) Xanthine Oxidase Inhibitor Start: 2 End: 3 Allopurinol 300 mg tablet Discontinued 300 mg PO DAILY April 06, 2022 12:00am November 07, 2022 2:28pm Start April 10 for 1 month, no refills hydroCHLOROthiazide 12.5 mg oral capsule (12 sources) Thiazide Diuretic Start: 2 End: 5 hydroCHLOROthiazide 12.5 mg oral capsule Dose : 12.5 mg = 1 cap(s), Oral, qDay, 0 Refill(s), HTN, goal below 140/90 Start Date: 11/08/24 Status: Ordered Repeat number: 1 Indications: Essential (primary) hypertension; rosuvastatin calcium 5 mg oral tablet (9 sources) HMG-CoA Reductase Inhibitor Start: 2 End: 5 rosuvastatin 5 mg oral tablet Dose : 5 mg = 1 tab(s), Oral, qDay, Discontinue atorvastatin secondary to intolerance, # 90 tab(s), 1 Refill(s), Pharmacy: [facility], Hyperlipidemia LDL goal Start Date: 07/08/24 Stop Date: 01/04/25 Status: Ordered Quantity: 90.0 Unit: tab(s) Repeat number: 2 Indications: Hyperlipidemia, unspecified; Problems Active Problems Problem Classification Problem Date Documented Date Episodic/Chronic Abdominal pain (2 sources) Unspecified abdominal pain; Translations: [Unspecified abdominal pain] Onset: 5 Episodic Administrative/socia l admission (13 sources) Patient encounter status; Translations: [Counseling, unspecified] Episodic Chronic kidney disease (5 sources) Chronic kidney disease stage 3 12-30-2021 Chronic Chronic kidney disease (4 sources) Chronic kidney disease; Translations: [Chronic kidney disease, stage 3 unspecified] Onset: 3 Disorders of lipid metabolism (16 sources) Hyperlipidemia; Translations: [Hypercholesterolemia] Onset: 4 12-26-2019 Chronic Essential hypertension (17 sources) Hypertensive disorder; Translations: [Essential (primary) hypertension] Onset: 3 06-25-2019 Chronic Comment on above: CONTROLLED WITH MEDS Fluid and electrolyte disorders (6 sources) Hyperkalemia 06-24-2019 Episodic Genitourinary symptoms and ill-defined conditions (1 source) Other retention of urine; Translations: [Other retention of urine] Onset: 5 Episodic Hyperplasia of prostate (6 sources) Benign prostatic hypertrophy without outflow obstruction 12-26-2019 Chronic Neoplasms of unspecified nature or uncertain behavior (17 sources) Neoplasm of orbit; 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] Onset: 5 Episodic Non-Hodgkin`s lymphoma (20 sources) Follicular non-Hodgkin's lymphoma; Translations: [Follicular lymphoma, unspecified, unspecified site] Onset: 3 Chronic Comment on above: B CELL Other aftercare (1 source) Encounter for adjustment and management of vascular access device; Translations: [Fitting and adjustment of vascular catheter] Episodic Other and unspecified benign neoplasm (6 sources) Lipoma of skin and subcutaneous tissue; Translations: [Benign lipomatous neoplasm of skin and subcutaneous tissue of unspecified sites] 03-24-2022 Episodic Other and unspecified benign neoplasm (1 source) Benign lipomatous neoplasm of skin and subcutaneous tissue of unspecified sites; Translations: [Benign lipomatous neoplasm of skin and subcutaneous tissue of unspecified sites] Onset: 5 Episodic Other endocrine disorders (2 sources) Hyperparathyroidism 07-08-2024 Chronic Other endocrine disorders (2 sources) Hyperparathyroidism, unspecified; Translations: [Hyperparathyroidism, unspecified] Onset: 5 Chronic Other infections; including parasitic (6 sources) H/O: chickenpox 06-24-2019 Episodic Other infections; including parasitic (6 sources) H/O: measles 06-24-2019 Episodic Other infections; including parasitic (6 sources) H/O: mumps 06-24-2019 Episodic Other infections; including parasitic (6 sources) H/O: rubella 06-24-2019 Episodic Other male genital disorders (6 sources) Impotence 06-25-2019 Chronic Other nutritional; endocrine; and metabolic disorders (6 sources) Hyperuricemia; Translations: [Hyperuricemia without signs of inflammatory arthritis and tophaceous disease] 05-16-2022 Episodic Comment on above: Asymptomatic Other skin disorders (2 sources) Lesion of scalp 12-30-2021 Episodic Residual codes; unclassified (6 sources) Increased body mass index 12-24-2020 Episodic Unclassified (20 sources) Patient encounter status 01-21-2020 Unclassified (5 sources) Non-smoker 12-30-2021 Unclassified (2 sources) Encounter for screening colonoscopy; Translations: [Z12.11 - Encounter for screening for malignant neoplasm of colon] Past or Other Problems Problem Classification Problem Date Documented Da te Episodic/Chronic Other screening for suspected conditions (not mental disorders or infectious disease) (5 sources) Encounter for screening for malignant neoplasm of prostate; Translations: [Encounter for screening for malignant neoplasm of colon] Onset: 01-11-2024 Episodic Results Test Name Value Interpretation Reference Range Facility Absolute lymphocyte countOrd ered By: Facundo Beatty on 01-16-2025 Lymphocytes Auto (Unsp spec) [#/Vol] 1.56 10*3/uL 0.83-4.51 [facility] Absolute neutrophil countOrd ered By: Facundo Beatty on 01-16-2025 Neutrophils (Bld) [#/Vol] 3.5 10*3/uL 2.0-7.7 [facility] Anion gap in Serum or Plasma Ordered By: Facundo Beatty on 01-16-2025 Anion gap [Moles/Vol] 10 mmol/L 5-15 [facility] Automated lymphocyte count a s percentage of total leukocytesOrdered By: Facundo Beatty on 01-16-2025 Lymphocytes/100 WBC Auto (Unsp spec) 26.8 % 19-41 [facility] BUN/creatinine ratioOrdered By: Facundo Beatty on 01-16-2025 Urea nitrogen/Creatinine [Mass ratio] 16.3 mg/mg 10-20 [facility] Basophil percentageOrdered B y: Facundo Beatty on 01-16-2025 Basophils/100 WBC (Bld) 0.5 % 0-1 [facility] Bilirubin, totalOrdered By: Facundo Beatty on 01-16-2025 Bilirubin [Mass/Vol] 0.31 mg/dL 0.00-1.30 [facility] CBC W/Diff, Automatedon 12-23 Absolute Lymph 1.56 X10 3/uL Normal 0.83-4.51 [facility] Comment on above: Performed By: #### L 100.0100, [id number], [id number] #### [facility] [address] [place], [address] Absolute Neut 3.5 X10 3/uL Normal 2.0-7.7 [facility] Comment on above: Performed By: #### L 100.0100, [id number], [id number] #### [facility] [address] [place], [address] Basophils/100 WBC (Bld) 0.5 % Normal 0-1 [facility] Comment on above: Performed By: #### L 100.0100, [id number], [id number] #### [facility] [address] [place], [address] Eosinophils/100 WBC (Bld) 1.7 % Normal 0-5 [facility] Comment on above: Performed By: #### L 100.0100, [id number], [id number] #### [facility] [address] [place], [address] Erythrocyte distribution width (RBC) [Ratio] 13.3 % Normal 11.6-14.6 [facility] Comment on above: Performed By: #### L 100.0100, [id number], [id number] #### [facility] [address] [place], [address] Hematocrit (Bld) [Volume fraction] 38.1 % Low 40-54 [facility] Comment on above: Performed By: #### L 100.0100, [id number], [id number] #### [facility] [address] [place], [address] Hemoglobin (Bld) [Mass/Vol] 12.8 g/dL Low 13.0-16.5 [facility] Comment on above: Performed By: #### L 100.0100, [id number], [id number] #### [facility] [address] [place], [address] IG% 2.900 High 0.0-0.9 [facility] Comment on above: Result Comment: IG% - Immature Granulocytes (promyelocytes, myelocytes and metamyelocytes) > 1% indicates that a LEFT SHIFT is Present. Performed By: #### L 100.0100, [id number], [id number] #### [facility] [address] [place], [address] Lymphocytes/100 WBC (Bld) 26.8 % Normal 19-41 [facility] Comment on above: Performed By: #### L 100.0100, [id number], [id number] #### [facility] [address] [place], [address] MCH (RBC) [Entitic mass] 30.0 pg Normal 27.0-32.0 [facility] Comment on above: Performed By: #### L 100.0100, [id number], [id number] #### [facility] [address] [place], [address] MCHC (RBC) [Mass/Vol] 33.6 g/dL Normal 32-36 [facility] Comment on above: Performed By: #### L 100.0100, [id number], [id number] #### [facility] [address] [place], [address] MCV (RBC) [Entitic vol] 89.4 fL Normal 80-94 [facility] Comment on above: Performed By: #### L 100.0100, [id number], [id number] #### [facility] [address] [place], [address] Monocytes/100 WBC (Bld) 7.5 % Normal 0-10 [facility] Comment on above: Performed By: #### L 100.0100, [id number], [id number] #### [facility] [address] [place], [address] Neutrophils/100 WBC (Bld) 60.6 % Normal 47-70 [facility] Comment on above: Performed By: #### L 100.0100, [id number], [id number] #### [facility] [address] [place], [address] Nucleated RBC (Bld) [#/Vol] 0 10*3/uL Normal 0-5 [facility] Comment on above: Performed By: #### L 100.0100, [id number], [id number] #### [facility] [address] [place], [address] Platelet mean volume (Bld) [Entitic vol] 9.0 fL Normal 6.2-12.0 [facility] Comment on above: Performed By: #### L 100.0100, [id number], [id number] #### [facility] [address] [place], [address] Platelets (Bld) [#/Vol] 204 10*3/uL Normal 150-450 [facility] Comment on above: Performed By: #### L 100.0100, [id number], [id number] #### [facility] [address] [place], [address] RBC (Bld) [#/Vol] 4.26 10*6/uL Low 4.6-6.2 [facility] Comment on above: Performed By: #### L 100.0100, [id number], [id number] #### [facility] [address] [place], [address] RDW SD 43.5 fl Normal 35.1-43.9 [facility] Comment on above: Performed By: #### L 100.0100, [id number], [id number] #### [facility] [address] [place], [address] WBC (Bld) [#/Vol] 5.8 10*3/uL Normal 4.4-11.0 [facility] Comment on above: Performed By: #### L 100.0100, [id number], [id number] #### [facility] [address] [place], [address] Carbon dioxide, total [Moles /volume] in Central venous bloodOrdered By: Facundo Beatty on 01-16-2025 CO2 [Moles/Vol] 24.9 mmol/L 21.0-32.0 [facility] Chloride assayOrdered By: Helder Beatty on 01-16-2025 Chloride [Moles/Vol] 107 mmol/L 98-108 [facility] Comprehensive Metabolic Prof ilon 01-16-2025 Albumin [Mass/Vol] 4.0 g/dL Normal 3.4-4.8 [facility] Comment on above: Performed By: #### L 100.0100, [id number], [id number] #### [facility] [address] [place], [address] Albumin/Globulin [Mass ratio] 1.9 {ratio} Normal 0.9-2.4 [facility] Comment on above: Performed By: #### L 100.0100, [id number], [id number] #### [facility] [address] [place], [address] ALK PHOS 100 U/L Normal 40-129 [facility] Comment on above: Performed By: #### L 100.0100, [id number], [id number] #### [facility] [address] [place], [address] ALT [Catalytic activity/Vol] 16 U/L Normal <=46 [facility] Comment on above: Performed By: #### L 100.0100, [id number], [id number] #### [facility] [address] [place], [address] AST [Catalytic activity/Vol] 27 U/L Normal <=37 [facility] Comment on above: Performed By: #### L 100.0100, [id number], [id number] #### [facility] [address] [place], [address] Bilirubin [Mass/Vol] 0.31 mg/dL Normal 0.00-1.30 [facility] Comment on above: Performed By: #### L 100.0100, [id number], [id number] #### [facility] [facility] [address] [place], [address] BUN/CRE 16.3 RATIO Normal 10-20 [facility] Comment on above: Performed By: #### L 100.0100, L500.4050, L504.2610 #### [facility] [address] [place], [address] Calcium [Mass/Vol] 9.8 mg/dL Normal 7.6-11.0 [facility] Comment on above: Performed By: #### L 100.0100, L500.4050, [id number] #### [facility] [address] [place], [address] Chloride [Moles/Vol] 107 mmol/L Normal 98-108 [facility] Comment on above: Performed By: #### L 100.0100, L500.4050, [id number] #### [facility] [address] [place], [address] CO2 [Moles/Vol] 24.9 mmol/L Normal 21.0-32.0 [facility] Comment on above: Performed By: #### L 100.0100, L500.4050, [id number] #### [facility] [address] [place], [address] Creatinine [Mass/Vol] 1.13 mg/dL Normal 0.70-1.20 [facility] Comment on above: Performed By: #### L 100.0100, L500.4050, [id number] #### [facility] [address] [place], [address] ECRCL 61.13 ml/min Normal 50-250 [facility] Comment on above: Performed By: #### L 100.0100, L500.4050, [id number] #### [facility] [address] [place], [address] GAP 10 Normal 5-15 [facility] Comment on above: Performed By: #### L 100.0100, L500.4050, [id number] #### [facility] [address] [place], [address] GFR/1.73 sq M.predicted among non-blacks MDRD (S/P/Bld) [Vol rate/Area] 66 mL/min/{1.73_m2} Normal >60 [facility] Comment on above: Result Comment: mL/m in/1.73m2 CKD-EPI Creatinine Equation (2020) Performed By: #### L 100.0100, L500.4050, [id number] #### [facility] [address] [place], [address] Globulin (S) [Mass/Vol] 2.1 g/dL Low 2.2-4.2 [facility] Comment on above: Performed By: #### L 100.0100, L500.4050, [id number] #### [facility] [address] [place], [address] Glucose [Mass/Vol] 117 mg/dL High 70-99 [facility] Comment on above: Performed By: #### L 100.0100, L500.4050, [id number] #### [facility] [address] [place], [address] Potassium [Moles/Vol] 3.6 mmol/L Normal 3.3-5.1 [facility] Comment on above: Performed By: #### L 100.0100, L500.4050, [id number] #### [facility] [address] [place], [address] Sodium [Moles/Vol] 142 mmol/L Normal 133-145 [facility] Comment on above: Performed By: #### L 100.0100, L500.4050, [id number] #### [facility] [address] [place], [address] T PROT 6.1 g/dL Normal 5.9-8.4 [facility] Comment on above: Performed By: #### L 100.0100, L500.4050, [id number] #### [facility] [address] [place], [address] Urea nitrogen [Mass/Vol] 18 mg/dL Normal 4-19 [facility] Comment on above: Performed By: #### L 100.0100, L500.4050, [id number] #### [facility] Rob Kumar [place], [place], [id number] Eosinophil percentageOrdered By: Facundo Beatty on 01-16-2025 Eosinophils/100 WBC (Bld) 1.7 % 0-5 [facility] Erythrocyte distribution wid th ratioOrdered By: [facility] on 01-16-2025 Erythrocyte distribution width (RBC) [Ratio] 13.3 % 11.6-14.6 [facility] Erythrocyte distribution wid th standard deviationOrdered By: [facility] on 01-16-2025 Erythrocyte distribution width (RBC) [Ratio] 43.5 fl 35.1-43.9 [facility] Glomerular filtration rate ( GFR) estimation/1.73 sq m using serum, plasma, or whole bOrdered By: [facility] on 01-16-2025 GFR/1.73 sq M.predicted among non-blacks MDRD (S/P/Bld) [Vol rate/Area] 66 mL/min/{1.73_m2} >60 [facility] Comment on above: mL/min/1.73m2 CKD-EP I Creatinine Equation (2020) Hematocrit Auto (Bld) [Volum e fraction]Ordered By: [facility] on 01-16-2025 Hematocrit (Bld) [Volume fraction] 38.1 % Low 40-54 [facility] Hemoglobin measurementOrdere d By: [facility] on 01-16-2025 Hemoglobin (Bld) [Mass/Vol] 12.8 g/dL Low 13.0-16.5 [facility] Immature granulocytes/100 WB C Auto (Bld)Ordered By: [facility] on 01-16-2025 Immature granulocytes/100 WBC (Bld) 2.900 % High 0.0-0.9 [facility] Comment on above: IG% - Immature Granu locytes (promyelocytes, myelocytes and metamyelocytes) > 1% indicates that a LEFT SHIFT is Present. LDHon 01-16-2025 LDH 245 U/L High 87-241 [facility] Comment on above: Order Comment: 1 Performed By: #### L 100.0100, L500.4050, L504.2610 #### [facility] [address] [place], [address] Laboratory - Chemistry and C hemistry - challengeOrdered By: Facundo Beatty on 01-16-2025 AST [Catalytic activity/Vol] 27 U/L <38 [facility] Lactate dehydrogenase (LDH) measurementOrdered By: [facility] on 01-16-2025 LDH [Catalytic activity/Vol] 245 U/L High 87-241 [facility] MCV (mean corpuscular volume ) determinationOrdered By: [facility] on 01-16-2025 MCV (RBC) [Entitic vol] 89.4 fL 80-94 [facility] Mean corpuscular hemoglobin (MCH) determinationOrdered By: [facility] Rogerio on 01-16-2025 MCH (RBC) [Entitic mass] 30.0 pg 27.0-32.0 [facility] Mean corpuscular hemoglobin concentration (MCHC) determinationOrdered By: Facundo Beatty on 01-16-2025 MCHC (RBC) [Mass/Vol] 33.6 g/dL 32-36 [facility] Mean platelet volume determi nationOrdered By: [facility] on 01-16-2025 Platelet mean volume (Bld) [Entitic vol] 9.0 fL 6.2-12.0 [facility] Monocyte percentageOrdered B y: Facundo Beatty on 01-16-2025 Monocytes/100 WBC (Bld) 7.5 % 0-10 [facility] Neutrophil percentageOrdered By: [facility] Rogerio on 01-16-2025 Neutrophils/100 WBC (Bld) 60.6 % 47-70 [facility] Nucleated red blood cell per centageOrdered By: [facility] Rogerio on 01-16-2025 Nucleated RBC/100 WBC (Bld) [Ratio] 0 % 0-5 [facility] Oncology Visit Reporton 12-23 Oncology Visit Report [facility] [place] [facility] [address] [place] [address] OFFICE VISIT Date of Service: 01/16/25 1451 MR#: [id number] Acct: [id number] Name: EVY KONG Rep #: [id number] : 1945 From: Facundo Beatty MD Age/Sex: 79/M Location: [facility] Status: Signed HPI Subjective Chief Complaint Lymphoma On treatment PFSH Medical History Orbital tumor Hyperuricemia Gout Loss of hearing Wears glasses Wears partial dentures Bladder disease Heartburn Non-smoker Encounter for education Follicular lymphoma Lipoma of skin and subcutaneous tissue Hypercholesterolemia Hypertension Surgical History Hx of local excision of skin lesion Hx of hernia repair Social History household members: spouse Smoking Status: Never smoker alcohol intake: never substance use type: does not use caffeine: Yes Type: coffee Number of servings: 1 ROS Constitutional Constitutional: Reports systems reviewed and no addt'l complaints, except as documented; Denies excessive sweating, fatigue, fever(s), night sweats or weight loss Eyes Eyes: Reports systems reviewed and no addt'l complaints, except as documented; Denies change in vision, diplopia or eye pain ENT HEENT: Reports systems reviewed and no addt'l complaints, except as documented; Denies headache(s) or mouth lesions Cardiovascular Cardiovascular: Reports systems reviewed and no addt'l complaints, except as documented; Denies chest pain with activity or edema Respiratory/Chest Respiratory/Chest: Reports systems reviewed and no addt'l complaints, except as documented; Denies dyspnea on exertion Gastrointestinal Gastrointestinal: Reports systems reviewed and no addt'l complaints, except as documented and as per HPI; Denies change in bowel habits Genitourinary Genitourinary: Reports systems reviewed and no addt'l complaints, except as documented, as per HPI and other Details: Urinary symptoms significantly improved following TURP Musculoskeletal Musculoskeletal: Reports systems reviewed and no addt'l complaints, except as documented; Denies arthralgias or back pain Integumentary Integumentary: Reports systems reviewed and no addt'l complaints, except as documented; Denies change in hair or new lesions Neurologic Neurologic: Reports systems reviewed and no addt'l complaints, except as documented; Denies focal weakness, headache(s) or paresthesias Psychiatric Psychiatric: Reports systems reviewed and no addt'l complaints, except as documented Endocrine Endocrinology: Reports systems reviewed and no addt'l complaints, except as documented; Denies excessive sweating or fatigue Hematologic/Lymphatic Hematologic/Lymphatic: Reports systems reviewed and no addt'l complaints, except as documented and other Details: Enlarged lymph nodes in the neck resolved ; Denies easy bleeding, easy bruising or lymphadenopathy Allergic/Immunologic Allergic/Immunologic: Reports systems reviewed and no addt'l complaints, except as documented Intake Vital Signs 10/17/24 14:09 01/16/25 14:53 Height 5 ft 10 in 5 ft 10 in Weight: 94.347 kg 90.945 kg BMI 29.8 28.8 BP 132/79 H 164/82 H Blood Pressure Location Rt brachial Lt brachial Position Sitting Sitting Respiration 16 18 Pulse 75 55 L Pulse Source Monitor Monitor Temp 97.8 F 98.4 F Temperature Source Temporal Artery Temporal Artery Pulse Oximetry (%) 93 94 Oxygen Delivery Method room air room air Intake Accompanied by: Self Is patient in pain?: No Allergies No Known Drug Allergies Allergy (Unknown, Verified 01/16/25 14:56) Other Medications ???Medication ???Instructions ???Recorded ???Confirmed ???Type lidocaine-prilocaine 2.5 %-2.5 % 1 applic topical ONCE PRN port 01/16/25 Rx topical cream access 30 days #30 grams ondansetron 4 mg disintegrating 4 mg PO Q8H PRN nausea and 2 01/16/25 Rx tablet vomiting #30 tabs vitamin-ferrous fumarate 1 tab PO DAILY 01/05/23 01/16/25 History 28 mg iron-folic acid 800 mcg tablet ( Vitamins with Minerals) ascorbate calcium (vitamin C) 500 500 mg PO DAILY 03/02/23 01/16/25 History mg tablet cholecalciferol (vitamin D3) 25 25 mcg PO DAILY 08/17/23 01/16/25 History mcg (1,000 unit) capsule valsartan 80 mg tablet 80 mg PO DAILY 01/16/25 01/16/25 H istory Have you fallen in the past year?: No Central Venous Access Central Venous Access: Yes Port/PICC: Port CBC, CMP, LDH January 16, 2025 reviewed in EMR Exam Physical Exam Narrative ECOG 0 Const alert, oriented x3 and no apparent distress General Appearance: cooperative and com (more content not included)... Normal [facility] Platelet countOrdered By: Helder Beatty on 01-16-2025 Platelets (Bld) [#/Vol] 204 10*3/uL 150-450 [facility] Potassium measurement (mass/ volume)Ordered By: Facundo Beatty on 01-16-2025 Potassium (Unsp spec) [Mass/Vol] 3.6 mmol/L 3.3-5.1 [facility] RBC Auto (Bld) [#/Vol]Ordere d By: Facundo Beatty on 01-16-2025 RBC (Bld) [#/Vol] 4.26 10*6/uL Low 4.6-6.2 [facility] Serum creatinine measurement (mass/volume)Ordered By: Facundo Beatty on 01-16-2025 Creatinine [Mass/Vol] 1.13 mg/dL 0.70-1.20 [facility] Serum globulin measurementOr dered By: Facundo Beatty on 01-16-2025 Globulin (S) [Mass/Vol] 2.1 g/dL Low 2.2-4.2 [facility] Serum glucose measurement (m ass/volume)Ordered By: Facundo Beatty on 01-16-2025 Glucose [Mass/Vol] 117 mg/dL High 70-99 [facility] Serum or plasma alanine monet otransferase (ALT) measurementOrdered By: Facundo Beatty on 01-16-2025 ALT [Catalytic activity/Vol] 16 U/L <47 [facility] Serum or plasma albumin sandi urement (mass/volume)Ordered By: Facundo Beatty on 01-16-2025 Albumin [Mass/Vol] 4.0 g/dL 3.4-4.8 [facility] Serum or plasma albumin/glob ulin mass ratioOrdered By: Facundo Beatty on 01-16-2025 Albumin/Globulin [Mass ratio] 1.9 {ratio} 0.9-2.4 [facility] Serum or plasma alkaline angela sphatase measurementOrdered By: Facundo Ballesterosus on 01-16-2025 ALP [Catalytic activity/Vol] 100 U/L 40-129 [facility] Serum or plasma calcium sandi urement (mass/volume)Ordered By: Facundo Rogerio on 01-16-2025 Calcium [Mass/Vol] 9.8 mg/dL 7.6-11.0 [facility] Serum or plasma urea nitroge n measurement (mass/volume)Ordered By: Facundo Beatty on 01-16-2025 Urea nitrogen [Mass/Vol] 18 mg/dL 4-19 [facility] Sodium levelOrdered By: Jie roberts Rogerio on 01-16-2025 Sodium [Moles/Vol] 142 mmol/L 133-145 [facility] Total proteinOrdered By: Troy tish Rogerio on 01-16-2025 Protein [Mass/Vol] 6.1 g/dL 5.9-8.4 [facility] White blood cell (WBC) count Ordered By: Facundo Beatty on 01-16-2025 WBC (Bld) [#/Vol] 5.8 10*3/uL 4.4-11.0 [facility] .Auto Diffon 12-31-2024 Basophil, Absolute 0.1 10 3/mcL Normal 0.0-0.3 [facility] Comment on above: Performed By: #### L IPID, ANEU, GFR, PSA, MORPH, ADIFF, CBC, CMP, VIDH #### [address] [address] #### PTH #### [address] [place] [address] [address] Basophils/100 WBC (Bld) 1.0 % Normal 0.0-2.5 [facility] Comment on above: Performed By: #### L IPID, ANEU, GFR, PSA, MORPH, ADIFF, CBC, CMP, VIDH #### [address] [address] #### PTH #### [address] [address] Eosinophil, Absolute 0.2 10 3/mcL Normal 0.0-0.7 [facility] Comment on above: Performed By: #### L IPID, ANEU, GFR, PSA, MORPH, ADIFF, CBC, CMP, VIDH #### [address] [address] #### PTH #### [address] [address] Eosinophils/100 WBC (Bld) 3.0 % Normal 0.0-6.0 [facility] Comment on above: Performed By: #### L IPID, ANEU, GFR, PSA, MORPH, ADIFF, CBC, CMP, VIDH #### [place] [address] #### PTH #### [address] [address] Lymphocyte, Absolute 2.7 10 3/mcL Normal 0.9-4.3 [facility] Comment on above: Performed By: #### L IPID, ANEU, GFR, PSA, MORPH, ADIFF, CBC, CMP, VIDH #### [place] [address] #### PTH #### [address] [address] Lymphocytes/100 WBC (Bld) 38.3 % Normal 20.0-40.0 [facility] Comment on above: Performed By: #### L IPID, ANEU, GFR, PSA, MORPH, ADIFF, CBC, CMP, VIDH #### [place] [address] #### PTH #### [address] [address] Monocyte, Absolute 0.5 10 3/mcL Normal 0.1-1.4 [facility] Comment on above: Performed By: #### L IPID, ANEU, GFR, PSA, MORPH, ADIFF, CBC, CMP, VIDH #### [place] [address] #### PTH #### [address] [address] Monocytes/100 WBC (Bld) 6.8 % Normal 2.0-13.0 [facility] Comment on above: Performed By: #### L IPID, ANEU, GFR, PSA, MORPH, ADIFF, CBC, CMP, VIDH #### [address] [address] #### PTH #### [address] [address] Neutrophils/100 WBC (Bld) 50.9 % Normal 50.0-75.0 [facility] Comment on above: Performed By: #### L IPID, ANEU, GFR, PSA, MORPH, ADIFF, CBC, CMP, VIDH #### [address] [address] #### PTH #### [address] [address] .GFRon 12-31-2024 Estimated Glomerular Filtration Rate 64 ml/min/1.73sqm Normal [facility] Comment on above: Result Comment: Stages of Chronic Kidney Disease (CKD) Stage Description eGFR(ml/min/1.73 sq.m.) CKD 1 Normal kidney function or >=90 normal kindney function with possible kidney damage (ex. Proteinuria) CKD 2 Kidney damage with mild loss 60-89 of kidney function CKD 3a Mild to moderate loss of kidney 45-59 function CKD 3b Moderate to severe loss of 30-44 of kindey function CKD 4 Severe loss of kidney function 15-29 CKD 5 Kidney failure <15 Note: (go live 2024) the eGFR calculation was updated to the 2020 CKD-EPI creatinine equation without a race factor to calculate the eGFR results. Performed By: #### L IPID, ANEU, GFR, PSA, MORPH, ADIFF, CBC, CMP, VIDH #### [address] [address] #### PTH #### [address] [address] .Morphon 12-31-2024 Platelet Estimate Normal Normal [facility] Comment on above: Performed By: #### C MP, GFR #### [address] [address] .NEUABSon 12-31-2024 Neutrophil, Absolute 3.6 10 3/mcL Normal 2.3-8.1 [facility] Comment on above: Performed By: #### C MP, GFR #### [address] [address] [facility] Erythrocyte distribution width (RBC) [Ratio] 13.9 % Normal 11.5-15.5 [facility] Comment on above: Performed By: #### L IPID, ANEU, GFR, PSA, MORPH, ADIFF, CBC, CMP, VIDH #### [place] [address] #### PTH #### [place] [address] Hematocrit (Bld) [Volume fraction] 41.1 % Normal 40.0-52.0 [facility] Comment on above: Performed By: #### L IPID, ANEU, GFR, PSA, MORPH, ADIFF, CBC, CMP, VIDH #### [place] [address] #### PTH #### [place] [address] Hgb 14.0 G/dL Normal 13.0-17.5 [facility] Comment on above: Performed By: #### L IPID, ANEU, GFR, PSA, MORPH, ADIFF, CBC, CMP, VIDH #### [place] [address] #### PTH #### [place] [address] MCH (RBC) [Entitic mass] 30.3 pg Normal 27.0-33.0 [facility] Comment on above: Performed By: #### L IPID, ANEU, GFR, PSA, MORPH, ADIFF, CBC, CMP, VIDH #### [place] [address] #### PTH #### [place] [address] MCHC 34.1 G/dL Normal 32.0-36.0 [facility] Comment on above: Performed By: #### L IPID, ANEU, GFR, PSA, MORPH, ADIFF, CBC, CMP, VIDH #### [place] [address] #### PTH #### [address] [address] MCV (RBC) [Entitic vol] 89.1 fL Normal 81.0-100.0 [facility] Comment on above: Performed By: #### L IPID, ANEU, GFR, PSA, MORPH, ADIFF, CBC, CMP, VIDH #### [place] [address] #### PTH #### [place] [address] Platelet 226 10 3/mcL Normal 150-450 [facility] Comment on above: Performed By: #### L IPID, ANEU, GFR, PSA, MORPH, ADIFF, CBC, CMP, VIDH #### [place] [address] #### PTH #### [place] [address] Platelet mean volume (Bld) [Entitic vol] 8.1 fL Normal 6.4-10.5 [facility] Comment on above: Performed By: #### L IPID, ANEU, GFR, PSA, MORPH, ADIFF, CBC, CMP, VIDH #### [place] [address] #### PTH #### [place] [address] RBC 4.61 10 6/mcL Normal 4.50-6.00 [facility] Comment on above: Performed By: #### L IPID, ANEU, GFR, PSA, MORPH, ADIFF, CBC, CMP, VIDH #### [place] [address] #### PTH #### [place] [address] WBC 7.1 10 3/mcL Normal 4.5-10.8 [facility] Comment on above: Performed By: #### L IPID, ANEU, GFR, PSA, MORPH, ADIFF, CBC, CMP, VIDH #### [address] [address] #### PTH #### [address] [address] CMPon 12-31-2024 Albumin Level 3.6 G/dL Normal 3.4-4.8 [facility] Comment on above: Performed By: #### L IPID, ANEU, GFR, PSA, MORPH, ADIFF, CBC, CMP, VIDH #### [place] [address] #### PTH #### [place] [address] Albumin/Globulin [Mass ratio] 1.2 {ratio} Normal 1.1-2.5 [facility] Comment on above: Performed By: #### L IPID, ANEU, GFR, PSA, MORPH, ADIFF, CBC, CMP, VIDH #### [address] [address] #### PTH #### [place] [address] ALP [Catalytic activity/Vol] 113 U/L Normal 40-135 [facility] Comment on above: Performed By: #### L IPID, ANEU, GFR, PSA, MORPH, ADIFF, CBC, CMP, VIDH #### [address] [address] #### PTH #### [address] [address] ALT [Catalytic activity/Vol] 31 U/L Normal 16-63 [facility] Comment on above: Performed By: #### L IPID, ANEU, GFR, PSA, MORPH, ADIFF, CBC, CMP, VIDH #### [address] [address] #### PTH #### [place] [id number] AST [Catalytic activity/Vol] 27 U/L Normal 10-40 [facility] Comment on above: Performed By: #### L IPID, ANEU, GFR, PSA, MORPH, ADIFF, CBC, CMP, VIDH #### [address] [address] #### PTH #### [address] [address] Bili Total 0.4 mg/dL Normal 0.2-1.0 [facility] Comment on above: Result Comment: Use of this assay is not recommended for patients undergoing treatment with eltrombopag due to the potential for falsely elevated results. Performed By: #### L IPID, ANEU, GFR, PSA, MORPH, ADIFF, CBC, CMP, VIDH #### [place] [address] #### PTH #### [place] [address] BUN/Creatinine Ratio 12 ratio Normal 7-27 [facility] Comment on above: Performed By: #### L IPID, ANEU, GFR, PSA, MORPH, ADIFF, CBC, CMP, VIDH #### [place] [address] #### PTH #### [address] [address] Calcium [Mass/Vol] 9.9 mg/dL Normal 8.4-10.2 [facility] Comment on above: Performed By: #### L IPID, ANEU, GFR, PSA, MORPH, ADIFF, CBC, CMP, VIDH #### [place] [address] #### PTH #### [address] [address] Chloride [Moles/Vol] 107 mmol/L Normal 98-107 [facility] Comment on above: Performed By: #### L IPID, ANEU, GFR, PSA, MORPH, ADIFF, CBC, CMP, VIDH #### [place] [address] #### PTH #### [address] [address] CO2 [Moles/Vol] 30 mmol/L Normal 23-31 [facility] Comment on above: Performed By: #### L IPID, ANEU, GFR, PSA, MORPH, ADIFF, CBC, CMP, VIDH #### [address] [address] #### PTH #### [address] [address] Creatinine [Mass/Vol] 1.16 mg/dL Normal 0.67-1.17 [facility] Comment on above: Performed By: #### L IPID, ANEU, GFR, PSA, MORPH, ADIFF, CBC, CMP, VIDH #### [address] [address] #### PTH #### [place] [address] Electrolyte Balance 8.0 mEq/L Normal 4.0-15.0 [facility] Comment on above: Performed By: #### L IPID, ANEU, GFR, PSA, MORPH, ADIFF, CBC, CMP, VIDH #### [address] [address] #### PTH #### [address] [address] Globulin 3.1 G/dL Normal 2.7-4.4 [facility] Comment on above: Performed By: #### L IPID, ANEU, GFR, PSA, MORPH, ADIFF, CBC, CMP, VIDH #### [address] [address] #### PTH #### [address] [address] Glucose [Mass/Vol] 95 mg/dL Normal 83-110 [facility] Comment on above: Performed By: #### L IPID, ANEU, GFR, PSA, MORPH, ADIFF, CBC, CMP, VIDH #### [address] [address] #### PTH #### [address] [address] Potassium [Moles/Vol] 4.6 mmol/L Normal 3.5-5.1 [facility] Comment on above: Performed By: #### L IPID, ANEU, GFR, PSA, MORPH, ADIFF, CBC, CMP, VIDH #### [address] [address] #### PTH #### [place] [address] Sodium [Moles/Vol] 145 mmol/L Normal 136-145 [facility] Comment on above: Performed By: #### L IPID, ANEU, GFR, PSA, MORPH, ADIFF, CBC, CMP, VIDH #### [address] [address] #### PTH #### [place] [address] Total Protein 6.7 G/dL Normal 6.4-8.2 [facility] Comment on above: Performed By: #### L IPID, ANEU, GFR, PSA, MORPH, ADIFF, CBC, CMP, VIDH #### [address] [address] #### PTH #### [place] [address] Urea nitrogen [Mass/Vol] 14 mg/dL Normal 7-18 [facility] Comment on above: Performed By: #### L IPID, ANEU, GFR, PSA, MORPH, ADIFF, CBC, CMP, VIDH #### [address] [address] #### PTH #### [place] [address] LABORATORYOrdered By: SYSTEM SYSTEM on 12-31-2024 25-hydroxyvitamin D3 [Mass/Vol] 34.0 ng/mL Invalid Interpretation Code AO ADM SS Comment on above: Interpretive Data: I nterpretive Values Based on Total 25(OH) Vitamin D: Deficient <20 ng/mL Insufficient 20 - <30 ng/mL Sufficient 30-100 ng/mL Albumin BCP dye [Mass/Vol] 3.6 G/dL Normal 3.4 - 4.8 G/dL AO ADM SS Albumin/Globulin [Mass ratio] 1.2 {ratio} Normal 1.1 - 2.5 ratio AO ADM SS ALP [Catalytic activity/Vol] 113 U/L Normal 40 - 135 U/L AO ADM SS ALT With P-5'-P [Catalytic activity/Vol] 31 U/L Normal 16 - 63 U/L AO ADM SS AST With P-5'-P [Catalytic activity/Vol] 27 U/L Normal 10 - 40 U/L AO ADM SS Basophils (Bld) [#/Vol] 0.1 103/mcL Normal 0.0 - 0.3 10^3/mcL AO Workflow SS Basophils/100 WBC (Bld) 1.0 % Normal 0.0 - 2.5 % AO Workflow SS Bilirubin [Mass/Vol] 0.4 mg/dL Normal 0.2 - 1 .0 mg/dL AO ADM SS Comment on above: Interpretive Data: U se of this assay is not recommended for patients undergoing treatment with eltrombopag due to the potential for falsely elevated results. Calcium [Mass/Vol] 9.9 mg/dL Normal 8.4 - 10. 2 mg/dL AO ADM SS Chloride [Moles/Vol] 107 mmol/L Normal 98 - 10 7 mmol/L AO ADM SS CO2 [Moles/Vol] 30 mmol/L Normal 23 - 31 mmol/L AO ADM SS Creatinine [Mass/Vol] 1.16 mg/dL Normal 0.67 - 1.17 mg/dL AO ADM SS Electrolyte Balance 8.0 mEq/L Normal 4.0 - 15 .0 mEq/L AO ADM SS Eosinophil, Absolute 0.2 103/mcL Normal 0.0 - 0 .7 10^3/mcL AO Workflow SS Eosinophils/100 WBC (Bld) 3.0 % Normal 0.0 - 6.0 % AO Workflow SS Erythrocyte distribution width (RBC) [Ratio] 13.9 % Normal 11.5 - 15.5 % AO Workflow SS Estimated Glomerular Filtration Rate 64 ml/min/1.73sqm Invalid Interpretation Code AO Chemistry S Comment on above: Interpretive Data: Stages of Chronic Kidney Disease (CKD) Stage Description eGFR(ml/min/1.73 sq.m.) CKD 1 Normal kidney function or >=90 normal kindney function with possible kidney damage (ex. Proteinuria) CKD 2 Kidney damage with mild loss 60-89 of kidney function CKD 3a Mild to moderate loss of kidney 45-59 function CKD 3b Moderate to severe loss of 30-44 of kindey function CKD 4 Severe loss of kidney function 15-29 CKD 5 Kidney failure <15 Note: (go live 2024) the eGFR calculation was updated to the 2020 CKD-EPI creatinine equation without a race factor to calculate the eGFR results. Globulin 3.1 G/dL Normal 2.7 - 4.4 G/dL AO ADM SS Glucose [Mass/Vol] 95 mg/dL Normal 83 - 110 mg/dL AO ADM SS Hematocrit (Bld) [Volume fraction] 41.1 % Normal 40.0 - 52.0 % AO Workflow SS Hemoglobin (Bld) [Mass/Vol] 14.0 G/dL Normal 13.0 - 17.5 G/dL AO Workflow SS Lymphocytes (Bld) [#/Vol] 2.7 103/mcL Normal 0.9 - 4.3 10^3/mcL AO Workflow SS Lymphocytes/100 WBC (Bld) 38.3 % Normal 20.0 - 40.0 % AO Workflow SS MCH (RBC) [Entitic mass] 30.3 pg Normal 27.0 - 33.0 pg AO Workflow SS MCHC 34.1 G/dL Normal 32.0 - 36.0 G/dL AO Workflow SS MCV (RBC) [Entitic vol] 89.1 fL Normal 81.0 - 100.0 fL AO Workflow SS Monocytes (Bld) [#/Vol] 0.5 103/mcL Normal 0.1 - 1.4 10^3/mcL AO Workflow SS Monocytes/100 WBC (Bld) 6.8 % Normal 2.0 - 13.0 % AO Workflow SS Neutrophils (Bld) [#/Vol] 3.6 103/mcL Normal 2.3 - 8.1 10^3/mcL AO Workflow SS Neutrophils/100 WBC (Bld) 50.9 % Normal 50.0 - 75.0 % AO Workflow SS Parathyrin.intact [Mass/Vol] 85.3 pg/mL Normal 18.5 - 88.0 pg/mL AH ADM SS Platelet mean volume (Bld) [Entitic vol] 8.1 fL Normal 6.4 - 10.5 fL AO Workflow SS Platelets (Bld) [#/Vol] 226 103/mcL Normal 150 - 450 10^3/mcL AO Workflow SS Potassium [Moles/Vol] 4.6 mmol/L Normal 3.5 - 5.1 mmol/L AO ADM SS Prostate specific Ag [Mass/Vol] 1.26 ng/mL Normal 0.00 - 4.00 ng/mL AO ADM SS Protein [Mass/Vol] 6.7 G/dL Normal 6.4 - 8.2 G/dL AO ADM SS RBC (Bld) [#/Vol] 4.61 106/mcL Normal 4.50 - 6.0 0 10^6/mcL AO Workflow SS Sodium [Moles/Vol] 145 mmol/L Normal 136 - 145 mmol/L AO ADM SS Urea nitrogen [Mass/Vol] 14 mg/dL Normal 7 - 18 mg/dL AO ADM SS Urea nitrogen/Creatinine [Mass ratio] 12 ratio Normal 7 - 27 ratio AO ADM SS WBC (Bld) [#/Vol] 7.1 103/mcL Normal 4.5 - 10.8 10^3/mcL AO Workflow SS LABORATORYOrdered By: Myesha Bacon on 12-31-2024 Cholesterol [Mass/Vol] 172 mg/dL Normal 0 - 2 00 mg/dL AO ADM SS Comment on above: Interpretive Data: C holesterol Reference Interval: Less than 200 Desirable 200-239 Borderline high risk 240 and above High risk Cholesterol in HDL [Mass/Vol] 36 mg/dL Low 40 - 60 mg/dL AO ADM SS Cholesterol in LDL [Mass/Vol] 101 mg/dL Normal 0 - 130 mg/dL AO ADM SS Triglyceride [Mass/Vol] 173 mg/dL High 0 - 150 mg/dL AO ADM SS Comment on above: Interpretive Data: T riglyceride Reference Interval: Less than 150 Normal 150-199 Borderline high risk 200-499 High risk 500 or higher Very high risk LABORATORYOrdered By: Sunday Rivera on 12-31-2024 Platelets LM Ql (Bld) Normal (12/31/24 9:03 AM) Normal AO Hematology S LIPIDon 12-31-2024 Cholesterol [Mass/Vol] 172 mg/dL Normal 0-200 [facility] Comment on above: Result Comment: Chol esterol Reference Interval: Less than 200 Desirable 200-239 Borderline high risk 240 and above High risk Performed By: #### L IPID, ANEU, GFR, PSA, MORPH, ADIFF, CBC, CMP, VIDH #### [address] [address] #### PTH #### [address] [address] Cholesterol in HDL [Mass/Vol] 36 mg/dL Low 40-60 [facility] Comment on above: Performed By: #### L IPID, ANEU, GFR, PSA, MORPH, ADIFF, CBC, CMP, VIDH #### [address] [address] #### PTH #### [place] [address] Cholesterol in LDL [Mass/Vol] 101 mg/dL Normal 0-130 [facility] Comment on above: Performed By: #### L IPID, ANEU, GFR, PSA, MORPH, ADIFF, CBC, CMP, VIDH #### [place] [address] #### PTH #### [place] [address] Triglyceride [Mass/Vol] 173 mg/dL High 0-150 [facility] Comment on above: Result Comment: Trig lyceride Reference Interval: Less than 150 Normal 150-199 Borderline high risk 200-499 High risk 500 or higher Very high risk Performed By: #### L IPID, ANEU, GFR, PSA, MORPH, ADIFF, CBC, CMP, VIDH #### [place] [address] #### PTH #### [address] [address] PSAon 12-31-2024 Prostate Specific Antigen 1.26 ng/mL Normal 0.00-4.00 [facility] Comment on above: Performed By: #### L IPID, ANEU, GFR, PSA, MORPH, ADIFF, CBC, CMP, VIDH #### [address] [address] #### PTH #### [place] [id number] PTHon 12-31-2024 PTH, Intact 85.3 pg/mL Normal 18.5-88.0 [facility] Comment on above: Performed By: #### C MP, GFR #### [place] [address] [place], [place] [address] VIDHon 12-31-2024 Vit. D 25-Hydroxy 34.0 ng/mL Normal [facility] Comment on above: Result Comment: Inte rpretive Values Based on Total 25(OH) Vitamin D: Deficient <20 ng/mL Insufficient 20 - <30 ng/mL Sufficient 30-100 ng/mL Performed By: #### L IPID, ANEU, GFR, PSA, MORPH, ADIFF, CBC, CMP, VIDH #### [facility] [address] [place], [place] [address] #### PTH #### [place] [address] Final Surgical Pathology Rep [facility] 11-12-2024 Final Surgical Pathology Report . Pathology Reports Accession: Collected Date/Time: Received Date/Time: Pathologist: [id number] 11/08/2024 14:30 EDT 11/11/2024 08:56 EDT MD MOY POLK Final Surgical Pathology Report DIAGNOSIS: PROSTATE, SIMPLE PROSTATECTOMY: - GLANDULAR STROMAL HYPERPLASIA CLINICAL INFORMATION: Procedure: ROBOTIC ASSISTED SIMPLE PROSTATECTOMY Preoperative diagnosis: BENIGN PROSTATIC HYPERPLASIA WITH LOWER URINARY TRACT SYMPTOMS, RETENTION OF URINE Postoperative diagnosis: BENIGN PROSTATIC HYPERPLASIA WITH LOWER URINARY TRACT SYMPTOMS, RETENTION OF URINE SPECIMEN: A PROSTATE GROSS DESCRIPTION: All parts labelled with patient name and [id number] Received in formalin labelled prostate Is a 118 g simple prostatectomy overall measuring 8.8 x 6 x 5.2 cm. Outer surface of the specimen is inked entirely black. Sectioning reveals white-pearce lobulated cut surfaces. RS-8 Awilda Mckeon, Pathologists' Bond Trader (ASCP) Performed by AWILDA MCKEON MICROSCOPIC DESCRIPTION: The microscopic examination is performed, except in the case of Gross Only. Verified by Pathology Report verified by [facility] [place] [facility] MOY POLK MD Sign out Date: 11/12/2024 12:04 Performing Lab: [facility] [place] [facility], [address] [place] [address] Pathology Dept Disclaimer If ancillary studies were utilized, the following Laboratory Developed Test (LDT) disclaimer will apply: Under CLIA requirements, [facility] [place] [facility] is qualified to perform high complexity testing. For all ancillary stains, positive and negative controls stain appropriately. Performance characteristics of immunohistochemical and chromogenic in-situ hybridization tests have been determined by [facility] [place] [facility]. These tests are used for clinical purposes, They should not be regarded as investigational or for research. . Normal [facility] .GFRon 11-08-2024 Estimated Glomerular Filtration Rate 55 ml/min/1.73sqm Normal [facility] Comment on above: Result Comment: Stages of Chronic Kidney Disease (CKD) Stage Description eGFR(ml/min/1.73 sq.m.) CKD 1 Normal kidney function or >=90 normal kindney function with possible kidney damage (ex. Proteinuria) CKD 2 Kidney damage with mild loss 60-89 of kidney function CKD 3a Mild to moderate loss of kidney 45-59 function CKD 3b Moderate to severe loss of 30-44 of kindey function CKD 4 Severe loss of kidney function 15-29 CKD 5 Kidney failure <15 Note: (go live 2024) the eGFR calculation was updated to the 2020 CKD-EPI creatinine equation without a race factor to calculate the eGFR results. Performed By: #### C MP, GFR #### [address] [address] CMPon 11-08-2024 Albumin Level 3.6 G/dL Normal 3.4-4.8 [facility] Comment on above: Performed By: #### C MP, GFR #### [address] [address] Albumin/Globulin [Mass ratio] 1.2 {ratio} Normal 1.1-2.5 [facility] Comment on above: Performed By: #### C MP, GFR #### [address] [address] ALP [Catalytic activity/Vol] 101 U/L Normal 40-135 [facility] Comment on above: Performed By: #### C MP, GFR #### [address] [address] ALT [Catalytic activity/Vol] 22 U/L Normal 16-63 [facility] Comment on above: Performed By: #### C MP, GFR #### [place] [address] AST [Catalytic activity/Vol] 26 U/L Normal 10-40 [facility] Comment on above: Performed By: #### C MP, GFR #### [place] [address] Bili Total 0.5 mg/dL Normal 0.2-1.0 [facility] Comment on above: Result Comment: Use of this assay is not recommended for patients undergoing treatment with eltrombopag due to the potential for falsely elevated results. Performed By: #### C MP, GFR #### [place] [address] BUN/Creatinine Ratio 11 ratio Normal 7-27 [facility] Comment on above: Performed By: #### C MP, GFR #### [place] [address] Calcium [Mass/Vol] 9.8 mg/dL Normal 8.4-10.2 [facility] Comment on above: Performed By: #### C MP, GFR #### [place] [address] Chloride [Moles/Vol] 104 mmol/L Normal 98-107 [facility] Comment on above: Performed By: #### C MP, GFR #### [place] [address] CO2 [Moles/Vol] 28 mmol/L Normal 23-31 [facility] Comment on above: Performed By: #### C MP, GFR #### [place] [address] Creatinine [Mass/Vol] 1.31 mg/dL High 0.70-1.30 [facility] Comment on above: Result Comment: Test ing performed on Siemens Dimension EXL analyzer using a modified kinetic Viktor technique. Performed By: #### C MP, GFR #### [address] [address] Electrolyte Balance 6.0 mEq/L Normal 4.0-15.0 [facility] Comment on above: Performed By: #### C MP, GFR #### [address] [address] Globulin 3.1 G/dL Normal 1.5-3.8 [facility] Comment on above: Performed By: #### C MP, GFR #### [place] [id number] Glucose [Mass/Vol] 99 mg/dL Normal 83-110 [facility] Comment on above: Performed By: #### C MP, GFR #### [place] [address] Potassium [Moles/Vol] 3.9 mmol/L Normal 3.5-5.1 [facility] Comment on above: Performed By: #### C MP, GFR #### [place] [address] Sodium [Moles/Vol] 138 mmol/L Normal 136-145 [facility] Comment on above: Performed By: #### C MP, GFR #### [place] [id number] Total Protein 6.7 G/dL Normal 6.4-8.2 [facility] Comment on above: Performed By: #### C MP, GFR #### [place] [address] Urea nitrogen [Mass/Vol] 14 mg/dL Normal 7-18 [facility] Comment on above: Performed By: #### C MP, GFR #### [address] [address] .Urinalysis Microscopic (AO) on 10-21-2024 UA RBC 5-10 Abnormal None Seen [facility] Comment on above: Performed By: #### C MP, GFR #### [address] [address] UA Squam Epithelial 0-5 Abnormal None Seen [facility] Comment on above: Performed By: #### C MP, GFR #### [address] [address] UA WBC 0-5 Abnormal None Seen [facility] Comment on above: Performed By: #### C MP, GFR #### [address] [address] UAon 10-21-2024 Color (U) Yellow Normal [facility] Comment on above: Performed By: #### C MP, GFR #### [address] [address] Glucose (U) [Mass/Vol] Negative Normal Negative [facility] Comment on above: Performed By: #### C MP, GFR #### [address] [address] Ketones Ql (U) Negative Normal Negative [facility] Comment on above: Performed By: #### C MP, GFR #### [address] [address] UA Appear Clear Normal Clear [facility] Comment on above: Performed By: #### C MP, GFR #### [address] [address] UA Blood Large Abnormal Negative [facility] Comment on above: Performed By: #### C MP, GFR #### [address] [address] UA Leuk Est Negative Normal Negative [facility] Comment on above: Performed By: #### C MP, GFR #### [address] [address] UA Nitrite Negative Normal Negative [facility] Comment on above: Performed By: #### C MP, GFR #### [address] [address] UA pH 6.0 Normal 5.0 - 8.0 [facility] Comment on above: Performed By: #### C MP, GFR #### [address] [address] UA Protein Negative Normal Negative [facility] Comment on above: Performed By: #### C MP, GFR #### [address] [address] UA Spec Grav 1.015 Normal 1.015-1.025 [facility] Comment on above: Performed By: #### C MP, GFR #### [place] [address] [place], [place] [address] UA Specimen Type Clean Catch Normal [facility] Comment on above: Performed By: #### C MP, GFR #### [address] [address] UA Urobilinogen 0.2 E.U./dL Normal 0.2-1.0 [facility] Comment on above: Performed By: #### C MP, GFR #### [address] [address] Urobilinogen (U) [Mass/Vol] Negative Normal Negative [facility] Comment on above: Performed By: #### C MP, GFR #### [address] [address] CBC W/Diff, Automatedon 09-22 Absolute Lymph 1.66 X10 3/uL Normal 0.83-4.51 [facility] Comment on above: Performed By: #### L 500.4050, L504.2610, L100.0100 #### [facility] [address] [place], [address] Absolute Neut 4.9 X10 3/uL Normal 2.0-7.7 [facility] Comment on above: Performed By: #### L 500.4050, L504.2610, L100.0100 #### [facility] [address] [place], [address] Basophils/100 WBC (Bld) 0.4 % Normal 0-1 [facility] Comment on above: Performed By: #### L 500.4050, L504.2610, L100.0100 #### [facility] [address] [place], [address] Eosinophils/100 WBC (Bld) 1.1 % Normal 0-5 [facility] Comment on above: Performed By: #### L 500.4050, L504.2610, L100.0100 #### [facility] [address] [place], [address] Erythrocyte distribution width (RBC) [Ratio] 13.2 % Normal 11.6-14.6 [facility] Comment on above: Performed By: #### L 500.4050, L504.2610, L100.0100 #### [facility] [address] [place], [address] Hematocrit (Bld) [Volume fraction] 40.7 % Normal 40-54 [facility] Comment on above: Performed By: #### L 500.4050, L504.2610, L100.0100 #### [facility] [address] [place], [address] Hemoglobin (Bld) [Mass/Vol] 14.2 g/dL Normal 13.0-16.5 [facility] Comment on above: Performed By: #### L 500.4050, L504.2610, L100.0100 #### [facility] [address] [place], [address] IG% 1.700 High 0.0-0.9 [facility] Comment on above: Result Comment: IG% - Immature Granulocytes (promyelocytes, myelocytes and metamyelocytes) > 1% indicates that a LEFT SHIFT is Present. Performed By: #### L 500.4050, L504.2610, L100.0100 #### [facility] [address] [place], [address] Lymphocytes/100 WBC (Bld) 22.2 % Normal 19-41 [facility] Comment on above: Performed By: #### L 500.4050, L504.2610, L100.0100 #### [facility] [address] [place], [address] MCH (RBC) [Entitic mass] 30.9 pg Normal 27.0-32.0 [facility] Comment on above: Performed By: #### L 500.4050, L504.2610, L100.0100 #### [facility] [address] [place], [address] MCHC (RBC) [Mass/Vol] 34.9 g/dL Normal 32-36 [facility] Comment on above: Performed By: #### L 500.4050, L504.2610, L100.0100 #### [facility] [address] [place], [address] MCV (RBC) [Entitic vol] 88.5 fL Normal 80-94 [facility] Comment on above: Performed By: #### L 500.4050, L504.2610, L100.0100 #### [facility] [address] [place], [address] Monocytes/100 WBC (Bld) 9.5 % Normal 0-10 [facility] Comment on above: Performed By: #### L 500.4050, L504.2610, L100.0100 #### [facility] [address] [place], [address] Neutrophils/100 WBC (Bld) 65.1 % Normal 47-70 [facility] Comment on above: Performed By: #### L 500.4050, L504.2610, L100.0100 #### [facility] [address] [place], [address] Nucleated RBC (Bld) [#/Vol] 0 10*3/uL Normal 0-5 [facility] Comment on above: Performed By: #### L 500.4050, L504.2610, L100.0100 #### [facility] [address] [place], [address] Platelet mean volume (Bld) [Entitic vol] 8.9 fL Normal 6.2-12.0 [facility] Comment on above: Performed By: #### L 500.4050, L504.2610, L100.0100 #### [facility] [address] [place], [address] Platelets (Bld) [#/Vol] 215 10*3/uL Normal 150-450 [facility] Comment on above: Performed By: #### L 500.4050, L504.2610, L100.0100 #### [facility] [address] [place], [address] RBC (Bld) [#/Vol] 4.60 10*6/uL Normal 4.6-6.2 [facility] Comment on above: Performed By: #### L 500.4050, L504.2610, L100.0100 #### [facility] [address] [place], [address] RDW SD 42.7 fl Normal 35.1-43.9 [facility] Comment on above: Performed By: #### L 500.4050, L504.2610, L100.0100 #### [facility] [address] [place], [address] WBC (Bld) [#/Vol] 7.5 10*3/uL Normal 4.4-11.0 [facility] Comment on above: Performed By: #### L 500.4050, L504.2610, L100.0100 #### [facility] [address] [place], [address] Comprehensive Metabolic Prof ilon 10-17-2024 Albumin [Mass/Vol] 4.0 g/dL Normal 3.4-4.8 [facility] Comment on above: Performed By: #### L 500.4050, L504.2610, L100.0100 #### [facility] [address] [place], [address] Albumin/Globulin [Mass ratio] 1.7 {ratio} Normal 0.9-2.4 [facility] Comment on above: Performed By: #### L 500.4050, L504.2610, L100.0100 #### [facility] [address] [place], [address] ALK PHOS 99 U/L Normal 40-129 [facility] Comment on above: Performed By: #### L 500.4050, L504.2610, L100.0100 #### [facility] [address] [place], [address] ALT [Catalytic activity/Vol] 21 U/L Normal <=46 [facility] Comment on above: Performed By: #### L 500.4050, L504.2610, L100.0100 #### [facility] [address] [place], [address] AST [Catalytic activity/Vol] 29 U/L Normal <=37 [facility] Comment on above: Performed By: #### L 500.4050, L504.2610, L100.0100 #### [facility] [address] [place], [address] Bilirubin [Mass/Vol] 0.49 mg/dL Normal 0.00-1.30 [facility] Comment on above: Performed By: #### L 500.4050, L504.2610, L100.0100 #### [facility] [address] [place], [address] BUN/CRE 11.0 RATIO Normal 10-20 [facility] Comment on above: Performed By: #### L 500.4050, L504.2610, L100.0100 #### [facility] [address] [place], [address] Calcium [Mass/Vol] 9.5 mg/dL Normal 7.6-11.0 [facility] Comment on above: Performed By: #### L 500.4050, L504.2610, L100.0100 #### [facility] [address] [place], [address] Chloride [Moles/Vol] 99 mmol/L Normal 98-108 [facility] Comment on above: Performed By: #### L 500.4050, L504.2610, L100.0100 #### [facility] [address] [place], [address] CO2 [Moles/Vol] 23.2 mmol/L Normal 21.0-32.0 [facility] Comment on above: Performed By: #### L 500.4050, L504.2610, L100.0100 #### [facility] [address] [place], [address] Creatinine [Mass/Vol] 1.37 mg/dL High 0.70-1.20 [facility] Comment on above: Performed By: #### L 500.4050, L504.2610, L100.0100 #### [facility] [address] [place], [address] ECRCL 51.84 ml/min Normal 50-250 [facility] Comment on above: Performed By: #### L 500.4050, L504.2610, L100.0100 #### [facility] [address] [place], [address] GAP 15 Normal 5-15 [facility] Comment on above: Performed By: #### L 500.4050, L504.2610, L100.0100 #### [facility] [address] [place], [address] GFR/1.73 sq M.predicted among non-blacks MDRD (S/P/Bld) [Vol rate/Area] 53 mL/min/{1.73_m2} Low >60 [facility] Comment on above: Result Comment: mL/m in/1.73m2 CKD-EPI Creatinine Equation (2020) Performed By: #### L 500.4050, L504.2610, L100.0100 #### [facility] [address] [place], [address] Globulin (S) [Mass/Vol] 2.3 g/dL Normal 2.2-4.2 [facility] Comment on above: Performed By: #### L 500.4050, L504.2610, L100.0100 #### [facility] [address] [place], [address] Glucose [Mass/Vol] 103 mg/dL High 70-99 [facility] Comment on above: Performed By: #### L 500.4050, L504.2610, L100.0100 #### [facility] [address] [place], [address] Potassium [Moles/Vol] 3.7 mmol/L Normal 3.3-5.1 [facility] Comment on above: Performed By: #### L 500.4050, L504.2610, L100.0100 #### [facility] [address] [place], [address] Sodium [Moles/Vol] 137 mmol/L Normal 133-145 [facility] Comment on above: Performed By: #### L 500.4050, L504.2610, L100.0100 #### [facility] [address] [place], [address] T PROT 6.3 g/dL Normal 5.9-8.4 [facility] Comment on above: Performed By: #### L 500.4050, L504.2610, L100.0100 #### [facility] [address] [place], [address] Urea nitrogen [Mass/Vol] 15 mg/dL Normal 4-19 [facility] Comment on above: Performed By: #### L 500.4050, L504.2610, L100.0100 #### [facility] [address] [place], [address] LDHon 10-17-2024 LDH 252 U/L High 87-241 [facility] Comment on above: Order Comment: 1 Performed By: #### L 500.4050, L504.2610, L100.0100 #### [facility] [address] [place], [address] Oncology Visit Reporton 09-22 Oncology Visit Report [facility] [address] [place] [address] OFFICE VISIT Date of Service: 10/17/24 1404 MR#: [id number] Acct: [id number] Name: EVY KONG Rep #: [id number] : 1945 From: Facundo Beatty MD Age/Sex: 78/M [place] [facility] [place] Signed HPI Subjective Date of Service 10/17/24 Chief Complaint Lymphoma On treatment History of Present Illness 78-year-old gentleman with past history of hypertension, dyslipidemia, innumerable subcutaneous lipomas since youth believed to be familial (father, multiple siblings) who sometime in late 2020/early 2021 noted some focal areas in the scalp where he started to lose hair, later on these lesions started to become elevated tumor-like. He was seen by a back pad inspector who injected local steroids but the lesions continued to grow. February 2022 he was seen by Dr. 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 A Ki-67 stain demonstrated an increased proliferative index, tumor cells were negative for CD31, CD10, [place] 1 and cyclin D1. March 30, 2022 PET/CT initial staging: MPRESSION: 1. ??? ABNORMAL EXAMINATION INDICATIVE OF MALIGNANT VIABLE NEOPLASM. 2.??? Facilitated radiopharmaceutical concentration noted in the bilateral-lateral, anterior and posterior and vertex scalp, the bilateral-lateral neck and right periauricular and right anterior neck regions fulfill quantitative criteria for viable neoplasm.??? July 06, 2022 CT neck: IMPRESSION: 1.3 cm x 1.4 cm inhomogeneously enhancing mass in the right orbit just posterior to the right globe.??? A neoplastic process should be able. Partial opacification of the maxillary sinuses bilaterally. July 06, 2022 CT head: IMPRESSION: Normal unenhanced and enhanced CT scan of the brain. Additional imaging was provided.??? There is evidence of a 1.3 cm x 1.4 cm heterogeneous enhancing soft tissue nodule in the lateral aspect of the right orbit just posterior to the right globe. July 24, 2022 MRI of the head and neck: IMPRESSION: 1.??? 1.6 x 1.5 x 1.2 cm solid enhancing mass in the lateral caudal aspect of the right orbital fossa without involvement of the lacrimal gland, optic nerve, extraocular muscles and orbital globe. This is worrisome for lymphoma but this is not FDG avid and unchanged when compared to whole body PET/CT fusion scan of 03/30/2022. 2.??? Focal atrophy and collapse of the left temporal scalp mass. This mass was previously FDG avid on the PET/CT fusion scan of 03/30/2022. 3.??? Interval collapse of the right lateral frontal scalp mass which was previously FDG avid on PET/CT fusion scan of 03/30/2022. November 01, 2022 PET/CT restaging at end of treatment: IMPRESSION: 1.??? NEGATIVE EXAMINATION.??? There is no definitive quantitative scintigraphic evidence of recurrent/viable neoplasm. 2.??? There is interim metabolic resolution of the prior defined scalp and bilateral lateral and right anterior neck hypermetabolic foci. 3.??? Overall, compared to the prior FG PET study dated 03/30/22, there is current absence of defined viable neoplastic disease with interim metabolic resolution of all prior defined quantitatively significant hypermetabolic foci. February 20, 2023 MRI of the head and neck including the orbits: Orbits IMPRESSION: 1. 1.38 x 0.90 cm intensely enhancing right lateral retrobulbar mass; favor meningioma or hemangioma, however definitive diagnosis would require tissue sampling or excision. The mass does not infiltrate into the adjacent structures or the overlying optic nerve complex but does make contact with the investing sheath of the lateral rectus muscle which is slightly thickened at its point of contact. 2. Mild bilateral optic neuritis is also present with slight fluid distention nerve sheath at the optic insertion sites. Brain: IMPRESSION: 1. Normal unenhanced and enhanced MRI of the brain. 2. There are no focal brain parenchymal lesions or edema. There is no abnormal enhancement of the brain parenchyma or meninges or dura. June 12, 2023 CT brain, soft tissues of the neck: IMPRESSION: Relatively stable right orbital intraconal mass. 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 October 10, 2024 CT head and soft tissues of the neck: IMPRESSION: NO CERVICAL LYMPHADENOPATHY. 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 Treatment summary and response: Bendamustine- Rituxan April 18, 2022-September 05, 2022 (6 cycles) Rituxan maintenance October 2022-August 2024 (12; 8 weeks cycles) Interv (more content not included)... Normal [facility] .Auto Diffon 10-15-2024 Basophil, Absolute 0.1 10 3/mcL Normal 0.0-0.2 [facility] Comment on above: Performed By: #### C MP, GFR #### [address] [address] Basophils/100 WBC (Bld) 0.8 % Normal 0.0-2.5 [facility] Comment on above: Performed By: #### C MP, GFR #### [address] [address] Eosinophil, Absolute 0.0 10 3/mcL Normal 0.0-0.7 [facility] Comment on above: Performed By: #### C MP, GFR #### [address] [address] Eosinophils/100 WBC (Bld) 0.0 % Normal 0.0-7.0 [facility] Comment on above: Performed By: #### C MP, GFR #### [address] [address] Lymphocyte, Absolute 0.5 10 3/mcL Low 0.9-4.3 [facility] Comment on above: Performed By: #### C MP, GFR #### [address] [address] Lymphocytes/100 WBC (Bld) 5.0 % Low 20.0-40.0 [facility] Comment on above: Performed By: #### C MP, GFR #### [address] [address] Monocyte, Absolute 0.7 10 3/mcL Normal 0.1-1.4 [facility] Comment on above: Performed By: #### C MP, GFR #### [address] [address] Monocytes/100 WBC (Bld) 7.9 % Normal 2.0-13.0 [facility] Comment on above: Performed By: #### C MP, GFR #### [address] [address] Neutrophils/100 WBC (Bld) 86.3 % High 50.0-75.0 [facility] Comment on above: Performed By: #### C MP, GFR #### [address] [address] .GFRon 10-15-2024 Estimated Glomerular Filtration Rate 38 ml/min/1.73sqm Normal [facility] Comment on above: Result Comment: Stages of Chronic Kidney Disease (CKD) Stage Description eGFR(ml/min/1.73 sq.m.) CKD 1 Normal kidney function or >=90 normal kindney function with possible kidney damage (ex. Proteinuria) CKD 2 Kidney damage with mild loss 60-89 of kidney function CKD 3a Mild to moderate loss of kidney 45-59 function CKD 3b Moderate to severe loss of 30-44 of kindey function CKD 4 Severe loss of kidney function 15-29 CKD 5 Kidney failure <15 Note: (go live 2024) the eGFR calculation was updated to the 2020 CKD-EPI creatinine equation without a race factor to calculate the eGFR results. Performed By: #### C MP, GFR #### [address] [address] .MDWon 10-15-2024 Monocyte Distribution Width 17.87 Normal 0.00-20.00 [facility] Comment on above: Result Comment: For ED adult patients suspected of sepsis, MDW<=20.0 does not rule out sepsis or risk of sepsis Performed By: #### C MP, GFR #### [address] [address] .NEUABSon 10-15-2024 Neutrophil, Absolute 7.7 10 3/mcL Normal 2.3-8.1 [facility] Comment on above: Performed By: #### C MP, GFR #### [address] [address] BMPon 10-15-2024 BUN/Creatinine Ratio 9 ratio Normal 7-27 [facility] Comment on above: Performed By: #### C MP, GFR #### [address] [address] Calcium [Mass/Vol] 10.3 mg/dL High 8.4-10.2 [facility] Comment on above: Performed By: #### C MP, GFR #### [address] [address] Chloride [Moles/Vol] 92 mmol/L Low 98-107 [facility] Comment on above: Performed By: #### C MP, GFR #### [address] [address] CO2 [Moles/Vol] 28 mmol/L Normal 23-31 [facility] Comment on above: Performed By: #### C MP, GFR #### [address] [address] Creatinine [Mass/Vol] 1.80 mg/dL High 0.70-1.30 [facility] Comment on above: Result Comment: Test ing performed on Siemens Dimension EXL analyzer using a modified kinetic Viktor technique. Performed By: #### C MP, GFR #### [address] [address] Electrolyte Balance 9.0 mEq/L Normal 4.0-15.0 [facility] Comment on above: Performed By: #### C MP, GFR #### [address] [address] Glucose [Mass/Vol] 165 mg/dL High 83-110 [facility] Comment on above: Performed By: #### C MP, GFR #### [address] [address] Potassium [Moles/Vol] 3.9 mmol/L Normal 3.5-5.1 [facility] Comment on above: Performed By: #### C MP, GFR #### [address] [address] Sodium [Moles/Vol] 129 mmol/L Low 136-145 [facility] Comment on above: Performed By: #### C MP, GFR #### [address] [address] Urea nitrogen [Mass/Vol] 17 mg/dL Normal 7-18 [facility] Comment on above: Performed By: #### C MP, GFR #### [address] [address] CBCon 10-15-2024 Erythrocyte distribution width (RBC) [Ratio] 13.8 % Normal 11.5-15.5 [facility] Comment on above: Performed By: #### C MP, GFR #### [address] [address] Hematocrit (Bld) [Volume fraction] 42.8 % Normal 40.0-52.0 [facility] Comment on above: Performed By: #### C MP, GFR #### [address] [address] Hgb 15.1 G/dL Normal 13.0-17.5 [facility] Comment on above: Performed By: #### C MP, GFR #### [address] [address] MCH (RBC) [Entitic mass] 31.0 pg Normal 27.0-33.0 [facility] Comment on above: Performed By: #### C MP, GFR #### [address] [address] MCHC 35.2 G/dL Normal 32.0-36.0 [facility] Comment on above: Performed By: #### C MP, GFR #### [address] [address] MCV (RBC) [Entitic vol] 88.0 fL Normal 81.0-100.0 [facility] Comment on above: Performed By: #### C MP, GFR #### [address] [address] Platelet 249 10 3/mcL Normal 150-450 [facility] Comment on above: Performed By: #### C MP, GFR #### [address] [address] Platelet mean volume (Bld) [Entitic vol] 6.7 fL Normal 6.4-10.5 [facility] Comment on above: Performed By: #### C MP, GFR #### [address] [address] RBC 4.86 10 6/mcL Normal 4.50-6.00 [facility] Comment on above: Performed By: #### C MP, GFR #### [address] [address] WBC 9.0 10 3/mcL Normal 4.5-10.8 [facility] Comment on above: Performed By: #### C MP, GFR #### [address] [address] [address] ABDOMEN/PELVIS W/O CONTRA STon 10-15-2024 CT ABDOMEN/PELVIS W/O CONTRAST ORIGINAL EXAMINATION: CT OF THE ABDOMEN AND PELVIS WITHOUT CONTRAST 10/15/2024 12:32 pm TECHNIQUE: CT of the abdomen and pelvis was performed without the administration of intravenous contrast. Multiplanar reformatted images are provided for review. Automated exposure control, iterative reconstruction, and/or weight based adjustment of the mA/kV was utilized to reduce the radiation dose to as low as reasonably achievable. COMPARISON: None. HISTORY: ORDERING SYSTEM PROVIDED HISTORY: Reason for Exam: abdominal pain FINDINGS: Mild degenerative changes are noted in the spine. No acute osseous abnormality seen. Minimal dependent atelectasis is evident at the lower lobes. Liver, spleen, adrenal glands and pancreas are unremarkable. There is mild bilateral ureteral dilatation and pelvicaliectasis, with moderately prominent perinephric infiltrative change. No evidence for renal stone disease. No adenopathy, free air or free fluid seen. The urinary bladder is quite distended, and the prostate gland is very enlarged, indenting the bladder base. Findings are compatible with BPH and bladder outlet obstruction. A focal bladder lesion is not evident although there are small bladder wall diverticula noted. Moderate sigmoid diverticulosis is present and there is mild diverticulosis elsewhere as well. No evidence for diverticulitis. No other GI tract abnormality seen. No additional contributory finding. IMPRESSION: Prominent prostate enlargement/BPH with bladder outlet obstruction and at least mild bilateral hydronephrosis. Diverticulosis without diverticulitis. Interpreted by: Louie Palomino MD Preliminary Report By: Louie Palomino MD Electronically signed By Louie Palomino MD Dictated Date: 10/15/2024 12:34:34 PM Prelim Date: 10/15/2024 12:37:45 PM Sign Date: 10/15/2024 12:37:45 PM Ordering Provider: STORM P[facility]TS [facility] Color (U) Yellow Normal [facility] Comment on above: Performed By: #### C MP, GFR #### [address] [address] Glucose (U) [Mass/Vol] Negative Normal Negative [facility] Comment on above: Performed By: #### C MP, GFR #### [place] [address] [place], [place] [address] Ketones Ql (U) Negative Normal Negative [facility] Comment on above: Performed By: #### C MP, GFR #### [address] [address] UA Appear Clear Normal Clear [facility] Comment on above: Performed By: #### C MP, GFR #### [address] [address] UA Blood Negative Normal Negative [facility] Comment on above: Performed By: #### C MP, GFR #### [address] [address] UA Leuk Est Negative Normal Negative [facility] Comment on above: Performed By: #### C MP, GFR #### [place] [address] UA Nitrite Negative Normal Negative [facility] Comment on above: Performed By: #### C MP, GFR #### [place] [address] UA pH 6.5 Normal 5.0 - 8.0 [facility] Comment on above: Performed By: #### C MP, GFR #### [address] [address] UA Protein Negative Normal Negative [facility] Comment on above: Performed By: #### C MP, GFR #### [address] [address] UA Spec Grav 1.015 Normal 1.015-1.025 [facility] Comment on above: Performed By: #### C MP, GFR #### [place] [address] UA Specimen Type Clean Catch Normal [facility] Comment on above: Performed By: #### C MP, GFR #### [place] [address] UA Urobilinogen 0.2 E.U./dL Normal 0.2-1.0 [facility] Comment on above: Performed By: #### C MP, GFR #### [place] [address] Urobilinogen (U) [Mass/Vol] Negative Normal Negative [facility] Comment on above: Performed By: #### C MP, GFR #### [facility] [address] [place], [place] [address] Soft Tissue Neck WITH Contra ston 10-10-2024 Soft Tissue Neck WITH Contrast [facility] [address] [place] [address] Soft Tissue Neck WITH Contrast MR#: [id number] Acct: [id number] Name: EVY KONG Rep #: [id number] : 1945 M 78 From: Ernesto mello MD PCP: Moy Kennedy, RECEIVING COORDINATOR-C Status: REG CLI Study: Soft Tissue Neck WITH Contrast Date of Exam: 0 10/10/24 Exam# [id number] Ordering Dr: Julia Benavides NP RECEIVING COORDINATOR -C PROCEDURE: SOFT TISSUE NECK WITH CONTRAST 10/10/2024 REASON FOR EXAM: FOLLICULAR LYMPHOMA Follow-up examination following chemotherapy. TECHNIQUE: CT of the soft tissues of the neck from the orbits to the upper mediastinum with intravenous contrast. CONTRAST: Isovue 370. VOLUME: 79mL One or more dose reduction techniques were used (e.g., Automated exposure control, adjustment of the mA and/or kV according to patient size, use of iterative reconstruction technique). RADIATION DOSE SUMMARY: CTDlvol: 18.54 mGy DLP: 578.8 mGycm COMPARISON: Comparison is made with prior study dated November 30, 2023. FINDINGS: A right-sided port a catheter is seen with the tip in the superior vena cava. Airway: Midline and patent. Salivary glands: Unremarkable. Lymph nodes: No cervical lymphadenopathy. Thyroid: Unremarkable. Vasculature: Carotid arteries and internal jugular veins are unremarkable. Orbits: There is a 1.1 cm x 1.2 cm rounded soft tissue mass in the intraconal region of the right orbit. Paranasal sinuses and mastoids: Partial opacification of the maxillary sinuses more prominent on the right side. Lung apices: Mild emphysematous changes. Upper mediastinum: Visualized mediastinum is unremarkable. Bones: Multilevel degenerative changes of the spine. Other: CT/Soft Tissue Neck WITH Contrast IMPRESSION: NO CERVICAL LYMPHADENOPATHY. 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 Reading Location: [place] [address] CC: ALEXANDER Kennedy; [facility] Consultant: Signed Normal [facility] Absolute neutrophil countOrd ered By: [facility] on 07-18-2024 Neutrophils (Bld) [#/Vol] 4.6 10*3/uL 2.0-7.7 [facility] Albumin to globulin ratioOrd ered By: [facility] on 07-18-2024 Albumin/Globulin [Mass ratio] 1.1 {ratio} 0.9-2.4 [facility] Basophil percentageOrdered B y: Facundo Beatty on 07-18-2024 Basophils/100 WBC (Bld) 0.2 % 0-1 [facility] Bilirubin, totalOrdered By: [facility] on 07-18-2024 Bilirubin [Mass/Vol] 0.40 mg/dL 0.20-1.00 [facility] Comment on above: For patients on eltr ombopag therapy, use of Dimension [place] TBIL is not recommended. Blood urea nitrogen (BUN)/cr eatinine ratioOrdered By: Facundo Beatty on 07-18-2024 Urea nitrogen/Creatinine [Mass ratio] 16.9 mg/mg - [facility] CBC W/Diff, Automatedon 06-24 Absolute Lymph 2.81 X10 3/uL Normal 0.83-4.51 [facility] Comment on above: Performed By: #### L 100.0100, L500.4050, L504.2610 ####[facility] [address] [place], [address] Absolute Neut 4.6 X10 3/uL Normal 2.0-7.7 [facility] Comment on above: Performed By: #### L 100.0100, L500.4050, L504.2610 ####[facility] [address] [place], [address] Basophils/100 WBC (Bld) 0.2 % Normal 0-1 [facility] Comment on above: Performed By: #### L 100.0100, L500.4050, L504.2610 ####[facility] [address] [place], [address] Eosinophils/100 WBC (Bld) 2.4 % Normal 0-5 [facility] Comment on above: Performed By: #### L 100.0100, L500.4050, L504.2610 ####[facility] [address] [place], [address] Erythrocyte distribution width (RBC) [Ratio] 12.6 % Normal 11.6-14.6 [facility] Comment on above: Performed By: #### L 100.0100, L500.4050, L504.2610 ####[facility] [address] [place], [address] Hematocrit (Bld) [Volume fraction] 40.0 % Normal 40-54 [facility] Comment on above: Performed By: #### L 100.0100, L500.4050, L504.2610 ####[facility] [address] [place], [address] Hemoglobin (Bld) [Mass/Vol] 13.6 g/dL Normal 13.0-16.5 [facility] Comment on above: Performed By: #### L 100.0100, L500.4050, L504.2610 ####[facility] [address] [place], [address] IG% 1.200 High 0.0-0.9 [facility] Comment on above: Result Comment: IG% - Immature Granulocytes (promyelocytes, myelocytes and metamyelocytes) > 1% indicates that a LEFT SHIFT is Present. Performed By: #### L 100.0100, L500.4050, L504.2610 ####[facility] [address] [place], [address] Lymphocytes/100 WBC (Bld) 33.5 % Normal 19-41 [facility] Comment on above: Performed By: #### L 100.0100, L500.4050, L504.2610 ####[facility] [address] [place], [address] MCH (RBC) [Entitic mass] 30.7 pg Normal 27.0-32.0 [facility] Comment on above: Performed By: #### L 100.0100, L500.4050, L504.2610 ####[facility] [address] [place], [address] MCHC (RBC) [Mass/Vol] 34.0 g/dL Normal 32-36 [facility] Comment on above: Performed By: #### L 100.0100, L500.4050, L504.2610 ####[facility] [address] [place], [address] MCV (RBC) [Entitic vol] 90.3 fL Normal 80-94 [facility] Comment on above: Performed By: #### L 100.0100, L500.4050, L504.2610 ####[facility] [address] [place], [address] Monocytes/100 WBC (Bld) 8.3 % Normal 0-10 [facility] Comment on above: Performed By: #### L 100.0100, L500.4050, L504.2610 ####[facility] [address] [place], [address] Neutrophils/100 WBC (Bld) 54.4 % Normal 47-70 [facility] Comment on above: Performed By: #### L 100.0100, L500.4050, L504.2610 ####[facility] [address] [place], [address] Nucleated RBC (Bld) [#/Vol] 0 10*3/uL Normal 0-5 [facility] Comment on above: Performed By: #### L 100.0100, L500.4050, L504.2610 ####[facility] [address] [place], [address] Platelet mean volume (Bld) [Entitic vol] 9.0 fL Normal 6.2-12.0 [facility] Comment on above: Performed By: #### L 100.0100, L500.4050, L504.2610 ####[facility] [address] [place], [address] Platelets (Bld) [#/Vol] 196 10*3/uL Normal 150-450 [facility] Comment on above: Performed By: #### L 100.0100, L500.4050, L504.2610 ####[facility] [address] [place], [address] RBC (Bld) [#/Vol] 4.43 10*6/uL Low 4.6-6.2 [facility] Comment on above: Performed By: #### L 100.0100, L500.4050, L504.2610 ####[facility] [address] [place], [address] RDW SD 41.3 fl Normal 35.1-43.9 [facility] Comment on above: Performed By: #### L 100.0100, L500.4050, L504.2610 ####[facility] [address] [place], [address] WBC (Bld) [#/Vol] 8.4 10*3/uL Normal 4.4-11.0 [facility] Comment on above: Performed By: #### L 100.0100, L500.4050, L504.2610 ####[facility] [address] [place], [address] Carbon dioxide measurementOr dered By: Jiealejandra Beatty on 07-18-2024 CO2 [Moles/Vol] 29.0 mmol/L 21.0-32.0 [facility] Chloride measurementOrdered By: Facundo Beatty on 07-18-2024 Chloride [Moles/Vol] 105 mmol/L 98-107 [facility] Comprehensive Metabolic Prof ilon 07-18-2024 Albumin [Mass/Vol] 3.4 g/dL Normal 3.2-5.0 [facility] Comment on above: Order Comment: 1 Performed By: #### L 100.0100, L500.4050, L504.2610 ####[facility] [address] [place], [address] Albumin/Globulin [Mass ratio] 1.1 {ratio} Normal 0.9-2.4 [facility] Comment on above: Order Comment: 1 Performed By: #### L 100.0100, L500.4050, L504.2610 ####[facility] [address] [place], [address] ALK P 128 U/L High 45-117 [facility] Comment on above: Order Comment: 1 Performed By: #### L 100.0100, L500.4050, L504.2610 ####[facility] [address] [place], [address] ALT [Catalytic activity/Vol] 39 U/L Normal 16-61 [facility] Comment on above: Order Comment: 1 Performed By: #### L 100.0100, L500.4050, L504.2610 ####[facility] [address] [place], [address] AST [Catalytic activity/Vol] 36 U/L Normal 15-37 [facility] Comment on above: Order Comment: 1 Result Comment: Slig ht Hemolysis, Result may be falsely increased. Performed By: #### L 100.0100, L500.4050, L504.2610 ####[facility] [address] [place], [address] Bilirubin [Mass/Vol] 0.40 mg/dL Normal 0.20-1.00 [facility] Comment on above: Order Comment: 1 Result Comment: For patients on eltrombopag therapy, use of Dimension [place] TBIL is not recommended. Performed By: #### L 100.0100, L500.4050, L504.2610 ####[facility] [address] [place], [address] BUN/CRE 16.9 RATIO Normal 10-20 [facility] Comment on above: Order Comment: 1 Performed By: #### L 100.0100, L500.4050, L504.2610 ####[facility] [address] [place], [address] CA,Total 9.4 mg/dL Normal 8.5-10.1 [facility] Comment on above: Order Comment: 1 Performed By: #### L 100.0100, L500.4050, L504.2610 ####[facility] [address] [place], [address] Chloride [Moles/Vol] 105 mmol/L Normal 98-107 [facility] Comment on above: Order Comment: 1 Performed By: #### L 100.0100, L500.4050, L504.2610 ####[facility] [address] [place], [address] CO2 [Moles/Vol] 29.0 mmol/L Normal 21.0-32.0 [facility] Comment on above: Order Comment: 1 Performed By: #### L 100.0100, L500.4050, L504.2610 ####[facility] [address] [place], [address] Creatinine [Mass/Vol] 1.24 mg/dL Normal 0.70-1.30 [facility] Comment on above: Order Comment: 1 Result Comment: The validity of the calculated GFR GFRAA in patients over 70 years has not been determined. Clinical correlation is essential. Performed By: #### L 100.0100, L500.4050, L504.2610 ####[facility] [address] [place], [address] ECRCL 57.28 ml/min Normal [facility] Comment on above: Order Comment: 1 Performed By: #### L 100.0100, L500.4050, L504.2610 ####[facility] [address] [place], [address] EST GFR - AA 72 mL/min Normal >60 [facility] Comment on above: Order Comment: 1 Result Comment: Afri can [place] GFR Calc Performed By: #### L 100.0100, L500.4050, L504.2610 ####[facility] [address] [place], [address] GAP 4 Low 5-15 [facility] Comment on above: Order Comment: 1 Performed By: #### L 100.0100, L500.4050, L504.2610 ####[facility] [address] [place], [address] GFR/1.73 sq M.predicted among non-blacks MDRD (S/P/Bld) [Vol rate/Area] 60 mL/min/{1.73_m2} Normal >60 [facility] Comment on above: Order Comment: 1 Result Comment: Non- GFR Calc Performed By: #### L 100.0100, L500.4050, L504.2610 ####[facility] [address] [place], [address] Globulin (S) [Mass/Vol] 3.0 g/dL Normal 2.2-4.2 [facility] Comment on above: Order Comment: 1 Performed By: #### L 100.0100, L500.4050, L504.2610 ####[facility] [address] [place], [address] Glucose [Mass/Vol] 145 mg/dL High 74-106 [facility] Comment on above: Order Comment: 1 Result Comment: Fast ing Glucose result greater than or equal to 126 mg/dL suggests DIABETES MELLITUS per A.D.A. criteria. Performed By: #### L 100.0100, L500.4050, L504.2610 ####[facility] [address] [place], [address] Potassium [Moles/Vol] 3.5 mmol/L Normal 3.5-5.1 [facility] Comment on above: Order Comment: 1 Result Comment: Slig ht Hemolysis, Result may be falsely increased. Performed By: #### L 100.0100, L500.4050, L504.2610 ####[facility] [address] [place], [address] Sodium [Moles/Vol] 138 mmol/L Normal 136-145 [facility] Comment on above: Order Comment: 1 Performed By: #### L 100.0100, L500.4050, L504.2610 ####[facility] [address] [place], [address] T PROT 6.4 g/dL Normal 6.4-8.2 [facility] Comment on above: Order Comment: 1 Performed By: #### L 100.0100, L500.4050, L504.2610 ####[facility] [address] [place], [address] Urea nitrogen [Mass/Vol] 21 mg/dL High 7-18 [facility] Comment on above: Order Comment: 1 Performed By: #### L 100.0100, L500.4050, L504.2610 ####[facility] [address] [place], [address] Eosinophil percentageOrdered By: Facundo Beatty on 07-18-2024 Eosinophils/100 WBC (Bld) 2.4 % 0-5 [facility] Erythrocyte distribution wid th ratioOrdered By: Facundo Beatty on 07-18-2024 Erythrocyte distribution width (RBC) [Ratio] 12.6 % 11.6-14.6 [facility] Erythrocyte distribution wid th standard deviationOrdered By: Facundo Beatty on 07-18-2024 Erythrocyte distribution width (RBC) [Entitic vol] 41.3 fL 35.1-43.9 [facility] Estimated glomerular filtrat ion rate (GFR) AmericanOrdered By: Facundo Beatty on 07-18-2024 Estimated GFR (MDRD) Amer 72 mL/min >60 [facility] Comment on above: GFR Calc Estimation of creatinine kiara aranceOrdered By: Facundo Beatty on 07-18-2024 Estimated Creatinine Clearance Calc 57.28 ml/min [facility] Glomerular filtration rate ( GFR) estimationOrdered By: Facundo Beatty on 07-18-2024 Estimated GFR (MDRD) Non-Af Amer 60 mL/min >60 [facility] Comment on above: Non- GFR Calc Glucose measurementOrdered B y: Facundo Beatty on 07-18-2024 Glucose [Mass/Vol] 145 mg/dL High 74-106 [facility] Comment on above: Fasting Glucose resu lt greater than or equal to 126 mg/dL suggests DIABETES MELLITUS per A.D.A. criteria. Hematocrit Auto (Bld) [Volum e fraction]Ordered By: Facundo Beatty on 07-18-2024 Hematocrit (Bld) [Volume fraction] 40.0 % 40-54 [facility] Hemoglobin measurementOrdere d By: Facundo Beatty on 07-18-2024 Hemoglobin (Bld) [Mass/Vol] 13.6 g/dL 13.0-16.5 [facility] Immature granulocytes/100 WB C Auto (Bld)Ordered By: Facundo Beatty on 07-18-2024 Immature granulocytes/100 WBC (Bld) 1.200 % High 0.0-0.9 [facility] Comment on above: IG% - Immature Granu locytes (promyelocytes, myelocytes and metamyelocytes) > 1% indicates that a LEFT SHIFT is Present. LDHon 07-18-2024 LDH 258 U/L High 87-241 [facility] Comment on above: Order Comment: 1 Result Comment: Slig ht Hemolysis, Result may be falsely increased. Performed By: #### L 100.0100, L500.4050, L504.2610 ####[facility] [address] [place], [address] Laboratory - Chemistry and C hemistry - challengeOrdered By: Facundo Beatty on 07-18-2024 AST [Catalytic activity/Vol] 36 U/L 15-37 [facility] Comment on above: Slight Hemolysis, Re sult may be falsely increased. Lactate dehydrogenase (LDH) measurementOrdered By: Facundo Beatty on 07-18-2024 LDH [Catalytic activity/Vol] 258 U/L High 87-241 [facility] Comment on above: Slight Hemolysis, Re sult may be falsely increased. Lymphocytes Auto (Unsp spec) [#/Vol]Ordered By: Facundo Beatty on 07-18-2024 Lymphocytes (Bld) [#/Vol] 2.81 10*3/uL 0.83-4.51 [facility] Lymphocytes/100 WBC Auto (Un sp spec)Ordered By: Facundo Beatty on 07-18-2024 Lymphocytes/100 WBC (Bld) 33.5 % 19-41 [facility] MCV (mean corpuscular volume ) determinationOrdered By: Facundo Beatty on 07-18-2024 MCV (RBC) [Entitic vol] 90.3 fL 80-94 [facility] Mean corpuscular hemoglobin (MCH) determinationOrdered By: Facundo Beatty on 07-18-2024 MCH (RBC) [Entitic mass] 30.7 pg 27.0-32.0 [facility] Mean corpuscular hemoglobin concentration (MCHC) determinationOrdered By: Facundo Beatty on 07-18-2024 MCHC (RBC) [Mass/Vol] 34.0 g/dL 32-36 [facility] Mean platelet volume determi nationOrdered By: Facundo Beatty on 07-18-2024 Platelet mean volume (Bld) [Entitic vol] 9.0 fL 6.2-12.0 [facility] Monocyte percentageOrdered B y: Facundo Beatty on 07-18-2024 Monocytes/100 WBC (Bld) 8.3 % 0-10 [facility] Neutrophil percentageOrdered By: [facility] Neutrophils/100 WBC (Bld) 54.4 % 47-70 [facility] Nucleated red blood cell per centageOrdered By: [facility] on 07-18-2024 Nucleated RBC/100 WBC (Bld) [Ratio] 0 % 0-5 [facility] Oncology Visit Reporton 06-24 Oncology Visit Report [facility] [address] [place] [address] OFFICE VISIT Date of Service: 07/18/248 MR#: [id number] Acct: [id number] Name: EVY KONG Rep #: [id number] : 1945 From: Julia Benavides NP RECEIVING COORDINATOR -C Age/Sex: 78/M Location: [facility] Status: Signed HPI Subjective Date of Service 07/18/24 Chief Complaint Lymphoma On treatment History of Present Illness 78-year-old gentleman with past history of hypertension, dyslipidemia, innumerable subcutaneous lipomas since youth believed to be familial (father, multiple siblings) who sometime in late 2020/early 2021 noted some focal areas in the scalp where he started to lose hair, later on these lesions started to become elevated tumor-like. He was seen by a back pad inspector who injected local steroids but the lesions continued to grow. February 2022 he was seen by Dr. 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 A Ki-67 stain demonstrated an increased proliferative index, tumor cells were negative for CD31, CD10, [place] 1 and cyclin D1. March 30, 2022 PET/CT initial staging: MPRESSION: 1. ??? ABNORMAL EXAMINATION INDICATIVE OF MALIGNANT VIABLE NEOPLASM. 2.??? Facilitated radiopharmaceutical concentration noted in the bilateral-lateral, anterior and posterior and vertex scalp, the bilateral-lateral neck and right periauricular and right anterior neck regions fulfill quantitative criteria for viable neoplasm.??? July 06, 2022 CT neck: IMPRESSION: 1.3 cm x 1.4 cm inhomogeneously enhancing mass in the right orbit just posterior to the right globe.??? A neoplastic process should be able. Partial opacification of the maxillary sinuses bilaterally. July 06, 2022 CT head: IMPRESSION: Normal unenhanced and enhanced CT scan of the brain. Additional imaging was provided.??? There is evidence of a 1.3 cm x 1.4 cm heterogeneous enhancing soft tissue nodule in the lateral aspect of the right orbit just posterior to the right globe. July 24, 2022 MRI of the head and neck: IMPRESSION: 1.??? 1.6 x 1.5 x 1.2 cm solid enhancing mass in the lateral caudal aspect of the right orbital fossa without involvement of the lacrimal gland, optic nerve, extraocular muscles and orbital globe. This is worrisome for lymphoma but this is not FDG avid and unchanged when compared to whole body PET/CT fusion scan of 03/30/2022. 2.??? Focal atrophy and collapse of the left temporal scalp mass. This mass was previously FDG avid on the PET/CT fusion scan of 03/30/2022. 3.??? Interval collapse of the right lateral frontal scalp mass which was previously FDG avid on PET/CT fusion scan of 03/30/2022. November 01, 2022 PET/CT restaging at end of treatment: IMPRESSION: 1.??? NEGATIVE EXAMINATION.??? There is no definitive quantitative scintigraphic evidence of recurrent/viable neoplasm. 2.??? There is interim metabolic resolution of the prior defined scalp and bilateral lateral and right anterior neck hypermetabolic foci. 3.??? Overall, compared to the prior FG PET study dated 03/30/22, there is current absence of defined viable neoplastic disease with interim metabolic resolution of all prior defined quantitatively significant hypermetabolic foci. February 20, 2023 MRI of the head and neck including the orbits: Orbits IMPRESSION: 1. 1.38 x 0.90 cm intensely enhancing right lateral retrobulbar mass; favor meningioma or hemangioma, however definitive diagnosis would require tissue sampling or excision. The mass does not infiltrate into the adjacent structures or the overlying optic nerve complex but does make contact with the investing sheath of the lateral rectus muscle which is slightly thickened at its point of contact. 2. Mild bilateral optic neuritis is also present with slight fluid distention nerve sheath at the optic insertion sites. Brain: IMPRESSION: 1. Normal unenhanced and enhanced MRI of the brain. 2. There are no focal brain parenchymal lesions or edema. There is no abnormal enhancement of the brain parenchyma or meninges or dura. June 12, 2023 CT brain, soft tissues of the neck: IMPRESSION: Relatively stable right orbital intraconal mass. 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 Treatment summary and response: Bendamustine- Rituxan April 18, 2022-September 05, 2022 (6 cycles) Rituxan maintenance to start October 2022- Interval History The patient is presenting to clinic for an evaluation anticipating he will receive final rituximab infusion today. He denies any concerns r/t today's visit. (more content not included)... Normal [facility] Platelet countOrdered By: Helder Beatty on 07-18-2024 Platelets (Bld) [#/Vol] 196 10*3/uL 150-450 [facility] Potassium measurementOrdered By: Facundo Beatty on 07-18-2024 Potassium [Moles/Vol] 3.5 mmol/L 3.5-5.1 [facility] Comment on above: Slight Hemolysis, Re sult may be falsely increased. RBC Auto (Bld) [#/Vol]Ordere d By: Facundo Beatty on 07-18-2024 RBC (Bld) [#/Vol] 4.43 10*6/uL Low 4.6-6.2 [facility] Serum anion gap measurementO rdered By: Facundo Beatty on 07-18-2024 Anion gap [Moles/Vol] 4 mmol/L Low 5-15 [facility] Serum globulin measurementOr dered By: Facundo Beatty on 07-18-2024 Globulin (S) [Mass/Vol] 3.0 g/dL 2.2-4.2 [facility] Serum or plasma alanine monet otransferase (ALT) measurementOrdered By: Facundo Beatty on 07-18-2024 ALT [Catalytic activity/Vol] 39 U/L 16-61 [facility] Serum or plasma albumin sandi urement (mass/volume)Ordered By: Facundo Beatty on 07-18-2024 Albumin [Mass/Vol] 3.4 g/dL 3.2-5.0 [facility] Serum or plasma alkaline angela sphatase measurementOrdered By: Facundo Beatty on 07-18-2024 ALP [Catalytic activity/Vol] 128 U/L High 45-117 [facility] Serum or plasma calcium sandi urement (mass/volume)Ordered By: Facundo Beatty on 07-18-2024 Calcium [Mass/Vol] 9.4 mg/dL 8.5-10.1 [facility] Serum or plasma creatinine m easurement (mass/volume)Ordered By: Facundo Beatty on 07-18-2024 Creatinine [Mass/Vol] 1.24 mg/dL 0.70-1.30 [facility] Comment on above: The validity of the calculated GFR & GFRAA in patients over 70 years has not been determined. Clinical correlation is essential. Serum or plasma urea nitroge n measurement (mass/volume)Ordered By: Facundo Beatty on 07-18-2024 Urea nitrogen [Mass/Vol] 21 mg/dL High 7-18 [facility] Sodium levelOrdered By: Jie Beatty on 07-18-2024 Sodium [Moles/Vol] 138 mmol/L 136-145 [facility] Total proteinOrdered By: Troy Beatty on 07-18-2024 Protein [Mass/Vol] 6.4 g/dL 6.4-8.2 [facility] White blood cell (WBC) count Ordered By: Facundo Beatty on 07-18-2024 WBC (Bld) [#/Vol] 8.4 10*3/uL 4.4-11.0 [facility] .GFRon 07-04-2024 GFR 65 ml/min/1.73sqm Normal [facility] Comment on above: Result Comment: GFR Population mean for , Non- Americans Ages 20-29 = 116 mL/min/1.73 sq.m. Ages 30-39 = 107 mL/min/1.73 sq.m. Ages 40-49 = 99 mL/min/1.73 sq.m. Ages 50-59 = 93 mL/min/1.73 sq.m. Ages 60-69 = 85 mL/min/1.73 sq.m. Ages 70+ = 75 mL/min/1.73 sq.m. Chronic Kidney Disease: Less than 60 mL/min/1.73 square meters End Stage Renal Disease: Less than 15 mL/min/1.73 square meters Performed By: #### C MP, GFR #### [address] [address] GFR Non- 54 ml/min/1.73sqm Normal [facility] Comment on above: Result Comment: GFR Population mean for , Non- Americans Ages 20-29 = 116 mL/min/1.73 sq.m. Ages 30-39 = 107 mL/min/1.73 sq.m. Ages 40-49 = 99 mL/min/1.73 sq.m. Ages 50-59 = 93 mL/min/1.73 sq.m. Ages 60-69 = 85 mL/min/1.73 sq.m. Ages 70+ = 75 mL/min/1.73 sq.m. Chronic Kidney Disease: Less than 60 mL/min/1.73 square meters End Stage Renal Disease: Less than 15 mL/min/1.73 square meters Performed By: #### C MP, GFR #### [address] [address] .Manual Diffon 07-04-2024 Atypical Lymphs 3.0 % Normal 0.0-5.0 [facility] Comment on above: Performed By: #### C MP, GFR #### [address] [address] Basophil %, Manual 0.0 % Normal 0.0-2.5 [facility] Comment on above: Performed By: #### C MP, GFR #### [address] [address] Basophil, Abs Manual 0.0 10 3/mcL Normal 0.0-0.2 [facility] Comment on above: Performed By: #### C MP, GFR #### [address] [address] Eosinophil %, Manual 4.0 % Normal 0.0-7.0 [facility] Comment on above: Performed By: #### C MP, GFR #### [address] [address] Eosinophil, Abs Manual 0.3 10 3/mcL Normal 0.0-0.7 [facility] Comment on above: Performed By: #### C MP, GFR #### [address] [address] Lymphocyte %, Manual 32.0 % Normal 20.0-40.0 [facility] Comment on above: Performed By: #### C MP, GFR #### [address] [address] Lymphocyte, Abs Manual 2.4 10 3/mcL Normal 0.9-4.3 [facility] Comment on above: Performed By: #### C MP, GFR #### [address] [address] Monocyte %, Manual 8.0 % Normal 2.0-13.0 [facility] Comment on above: Performed By: #### C MP, GFR #### [address] [address] Monocyte, Abs Manual 0.6 10 3/mcL Normal 0.1-1.4 [facility] Comment on above: Performed By: #### C MP, GFR #### [address] [address] Neutrophil %, Manual 53.0 % Normal 50.0-75.0 [facility] Comment on above: Performed By: #### C MP, GFR #### [address] [address] Neutrophil, Abs Manual 3.9 10 3/mcL Normal 2.3-8.1 [facility] Comment on above: Performed By: #### C MP, GFR #### [address] [address] Nucleated RBC 0.0 /100 WBC Normal [facility] Comment on above: Performed By: #### C MP, GFR #### [address] [address] .Morphon 07-04-2024 Platelet Estimate Normal Normal [facility] Comment on above: Performed By: #### C MP, GFR #### [address] [address] RBC morphology finding Nom (Bld) Normal Normal [facility] Comment on above: Performed By: #### C MP, GFR #### [address] [address] CBCon 07-04-2024 Erythrocyte distribution width (RBC) [Ratio] 13.4 % Normal 11.5-15.5 [facility] Comment on above: Performed By: #### C MP, GFR #### [address] [address] Hematocrit (Bld) [Volume fraction] 43.3 % Normal 40.0-52.0 [facility] Comment on above: Performed By: #### C MP, GFR #### [address] [address] Hgb 14.8 G/dL Normal 13.0-17.5 [facility] Comment on above: Performed By: #### C MP, GFR #### [address] [address] MCH (RBC) [Entitic mass] 30.9 pg Normal 27.0-33.0 [facility] Comment on above: Performed By: #### C MP, GFR #### [address] [address] MCHC 34.1 G/dL Normal 32.0-36.0 [facility] Comment on above: Performed By: #### C MP, GFR #### [address] [address] MCV (RBC) [Entitic vol] 90.4 fL Normal 81.0-100.0 [facility] Comment on above: Performed By: #### C MP, GFR #### [address] [address] Platelet 226 10 3/mcL Normal 150-450 [facility] Comment on above: Performed By: #### C MP, GFR #### [address] [address] Platelet mean volume (Bld) [Entitic vol] 7.5 fL Normal 6.4-10.5 [facility] Comment on above: Performed By: #### C MP, GFR #### [address] [address] RBC 4.79 10 6/mcL Normal 4.50-6.00 [facility] Comment on above: Performed By: #### C MP, GFR #### [address] [address] WBC 7.4 10 3/mcL Normal 4.5-10.8 [facility] Comment on above: Performed By: #### C MP, GFR #### [address] [address] CMPon 07-04-2024 Albumin Level 3.9 G/dL Normal 3.4-4.8 [facility] Comment on above: Performed By: #### C MP, GFR #### [address] [address] Albumin/Globulin [Mass ratio] 1.5 {ratio} Normal 1.1-2.5 [facility] Comment on above: Performed By: #### C MP, GFR #### [address] [address] ALP [Catalytic activity/Vol] 116 U/L Normal 40-135 [facility] Comment on above: Performed By: #### C MP, GFR #### [address] [address] ALT [Catalytic activity/Vol] 33 U/L Normal 16-63 [facility] Comment on above: Performed By: #### C MP, GFR #### [address] [address] AST [Catalytic activity/Vol] 26 U/L Normal 10-40 [facility] Comment on above: Performed By: #### C MP, GFR #### [address] [address] Bili Total 0.5 mg/dL Normal 0.2-1.0 [facility] Comment on above: Result Comment: Use of this assay is not recommended for patients undergoing treatment with eltrombopag due to the potential for falsely elevated results. Performed By: #### C MP, GFR #### [place] [address] BUN/Creatinine Ratio 18 ratio Normal 7-27 [facility] Comment on above: Performed By: #### C MP, GFR #### [address] [address] Calcium [Mass/Vol] 10.0 mg/dL Normal 8.4-10.2 [facility] Comment on above: Performed By: #### C MP, GFR #### [address] [address] Chloride [Moles/Vol] 103 mmol/L Normal 98-107 [facility] Comment on above: Performed By: #### C MP, GFR #### [address] [address] CO2 [Moles/Vol] 33 mmol/L High 23-31 [facility] Comment on above: Performed By: #### C MP, GFR #### [place] [id number] Creatinine [Mass/Vol] 1.29 mg/dL Normal 0.70-1.30 [facility] Comment on above: Result Comment: Test ing performed on Siemens Dimension EXL analyzer using a modified kinetic Viktor technique. Performed By: #### C MP, GFR #### [address] [address] Electrolyte Balance 4.0 mEq/L Normal 4.0-15.0 [facility] Comment on above: Performed By: #### C MP, GFR #### [address] [address] Globulin 2.6 G/dL Normal [facility] Comment on above: Performed By: #### C MP, GFR #### [place] [address] Glucose [Mass/Vol] 100 mg/dL Normal 83-110 [facility] Comment on above: Performed By: #### C MP, GFR #### [place] [address] Potassium [Moles/Vol] 4.5 mmol/L Normal 3.5-5.1 [facility] Comment on above: Performed By: #### C MP, GFR #### [place] [address] Sodium [Moles/Vol] 140 mmol/L Normal 136-145 [facility] Comment on above: Performed By: #### C MP, GFR #### [place] [address] Total Protein 6.5 G/dL Normal 6.4-8.2 [facility] Comment on above: Performed By: #### C MP, GFR #### [address] [address] Urea nitrogen [Mass/Vol] 23 mg/dL High 7-18 [facility] Comment on above: Performed By: #### C MP, GFR #### [address] [address] LABORATORYOrdered By: SYSTEM SYSTEM on 07-04-2024 25-hydroxyvitamin D3 [Mass/Vol] 38.4 ng/mL Invalid Interpretation Code AO ADM SS Comment on above: Interpretive Data: I nterpretive Values Based on Total 25(OH) Vitamin D: Deficient <20 ng/mL Insufficient 20 - <30 ng/mL Sufficient 30-100 ng/mL Albumin BCP dye [Mass/Vol] 3.9 G/dL Normal 3.4 - 4.8 G/dL AO ADM SS Albumin/Globulin [Mass ratio] 1.5 {ratio} Normal 1.1 - 2.5 ratio AO ADM SS ALP [Catalytic activity/Vol] 116 U/L Normal 40 - 135 U/L AO ADM SS ALT With P-5'-P [Catalytic activity/Vol] 33 U/L Normal 16 - 63 U/L AO ADM SS AST With P-5'-P [Catalytic activity/Vol] 26 U/L Normal 10 - 40 U/L AO ADM SS Basophil %, Manual 0.0 % Normal 0.0 - 2.5 % AO Wo rkflow SS Basophils (Bld) [#/Vol] 0.0 103/mcL Normal 0.0 - 0.2 10^3/mcL AO Workflow SS Bilirubin [Mass/Vol] 0.5 mg/dL Normal 0.2 - 1 .0 mg/dL AO ADM SS Comment on above: Interpretive Data: U se of this assay is not recommended for patients undergoing treatment with eltrombopag due to the potential for falsely elevated results. Calcium [Mass/Vol] 10.0 mg/dL Normal 8.4 - 10. 2 mg/dL AO ADM SS Chloride [Moles/Vol] 103 mmol/L Normal 98 - 10 7 mmol/L AO ADM SS CO2 [Moles/Vol] 33 mmol/L High 23 - 31 mmol/L AO ADM SS Creatinine [Mass/Vol] 1.29 mg/dL Normal 0.70 - 1.30 mg/dL AO ADM SS Comment on above: Interpretive Data: T esting performed on Siemens Dimension EXL analyzer using a modified kinetic Viktor technique. Electrolyte Balance 4.0 mEq/L Normal 4.0 - 15 .0 mEq/L AO ADM SS Eosinophil %, Manual 4.0 % Normal 0.0 - 7.0 % AO Workflow SS Eosinophils (Bld) [#/Vol] 0.3 103/mcL Normal 0.0 - 0.7 10^3/mcL AO Workflow SS Erythrocyte distribution width (RBC) [Ratio] 13.4 % Normal 11.5 - 15.5 % AO Workflow SS GFR/1.73 sq M.predicted among blacks MDRD (S/P/Bld) [Vol rate/Area] 65 ml/min/1.73sqm Invalid Interpretation Code AO Chemistry S Comment on above: Interpretive Data: GFR Population mean for , Non- Americans Ages 20-29 = 116 mL/min/1.73 sq.m. Ages 30-39 = 107 mL/min/1.73 sq.m. Ages 40-49 = 99 mL/min/1.73 sq.m. Ages 50-59 = 93 mL/min/1.73 sq.m. Ages 60-69 = 85 mL/min/1.73 sq.m. Ages 70+ = 75 mL/min/1.73 sq.m. Chronic Kidney Disease: Less than 60 mL/min/1.73 square meters End Stage Renal Disease: Less than 15 mL/min/1.73 square meters GFR/1.73 sq M.predicted among non-blacks MDRD (S/P/Bld) [Vol rate/Area] 54 ml/min/1.73sqm Invalid Interpretation Code AO Chemistry S Comment on above: Interpretive Data: GFR Population mean for , Non- Americans Ages 20-29 = 116 mL/min/1.73 sq.m. Ages 30-39 = 107 mL/min/1.73 sq.m. Ages 40-49 = 99 mL/min/1.73 sq.m. Ages 50-59 = 93 mL/min/1.73 sq.m. Ages 60-69 = 85 mL/min/1.73 sq.m. Ages 70+ = 75 mL/min/1.73 sq.m. Chronic Kidney Disease: Less than 60 mL/min/1.73 square meters End Stage Renal Disease: Less than 15 mL/min/1.73 square meters Globulin 2.6 G/dL Invalid Interpretation Code AO ADM SS Glucose [Mass/Vol] 100 mg/dL Normal 83 - 110 mg/dL AO ADM SS Hematocrit (Bld) [Volume fraction] 43.3 % Normal 40.0 - 52.0 % AO Workflow SS Hemoglobin (Bld) [Mass/Vol] 14.8 G/dL Normal 13.0 - 17.5 G/dL AO Workflow SS Lymphocytes (Bld) [#/Vol] 2.4 103/mcL Normal 0.9 - 4.3 10^3/mcL AO Workflow SS Lymphocytes/100 WBC (Bld) 32.0 % Normal 20.0 - 40.0 % AO Workflow SS MCH (RBC) [Entitic mass] 30.9 pg Normal 27.0 - 33.0 pg AO Workflow SS MCHC 34.1 G/dL Normal 32.0 - 36.0 G/dL AO Workflow SS MCV (RBC) [Entitic vol] 90.4 fL Normal 81.0 - 100.0 fL AO Workflow SS Monocytes (Bld) [#/Vol] 0.6 103/mcL Normal 0.1 - 1.4 10^3/mcL AO Workflow SS Monocytes/100 WBC (Bld) 8.0 % Normal 2.0 - 13.0 % AO Workflow SS Neutrophils (Bld) [#/Vol] 3.9 103/mcL Normal 2.3 - 8.1 10^3/mcL AO Workflow SS Neutrophils/100 WBC (Bld) 53.0 % Normal 50.0 - 75.0 % AO Workflow SS Nucleated RBC 0.0 /100 WBC Invalid Interpretation Code AO Workflow SS Parathyrin.intact [Mass/Vol] 84.3 pg/mL Normal 18.5 - 88.0 pg/mL AH ADM SS Platelet mean volume (Bld) [Entitic vol] 7.5 fL Normal 6.4 - 10.5 fL AO Workflow SS Platelets (Bld) [#/Vol] 226 103/mcL Normal 150 - 450 10^3/mcL AO Workflow SS Platelets LM Ql (Bld) Normal *NA* (07/04/24 8:44 AM) Invalid Interpretation Code AO Workflow SS Potassium [Moles/Vol] 4.5 mmol/L Normal 3.5 - 5.1 mmol/L AO ADM SS Protein [Mass/Vol] 6.5 G/dL Normal 6.4 - 8.2 G/dL AO ADM SS RBC (Bld) [#/Vol] 4.79 106/mcL Normal 4.50 - 6.0 0 10^6/mcL AO Workflow SS RBC morphology finding Nom (Bld) Normal *NA* (07/04/24 8:44 AM) Invalid Interpretation Code AO Workflow SS Sodium [Moles/Vol] 140 mmol/L Normal 136 - 145 mmol/L AO ADM SS Urea nitrogen [Mass/Vol] 23 mg/dL High 7 - 18 mg/dL AO ADM SS Urea nitrogen/Creatinine [Mass ratio] 18 ratio Normal 7 - 27 ratio AO ADM SS Variant lymphocytes/100 WBC (Bld) 3.0 % Normal 0.0 - 5.0 % AO Workflow SS WBC (Bld) [#/Vol] 7.4 103/mcL Normal 4.5 - 10.8 10^3/mcL AO Workflow SS LABORATORYOrdered By: Myesha Bacon on 07-04-2024 Cholesterol [Mass/Vol] 211 mg/dL High 0 - 2 00 mg/dL AO ADM SS Comment on above: Interpretive Data: C holesterol Reference Interval: Less than 200 Desirable 200-239 Borderline high risk 240 and above High risk Cholesterol in HDL [Mass/Vol] 41 mg/dL Normal 40 - 60 mg/dL AO ADM SS Cholesterol in LDL [Mass/Vol] 124 mg/dL Normal 0 - 130 mg/dL AO ADM SS Triglyceride [Mass/Vol] 230 mg/dL High 0 - 150 mg/dL AO ADM SS Comment on above: Interpretive Data: T riglyceride Reference Interval: Less than 150 Normal 150-199 Borderline high risk 200-499 High risk 500 or higher Very high risk LIPIDon 07-04-2024 Cholesterol [Mass/Vol] 211 mg/dL High 0-200 [facility] Comment on above: Result Comment: Chol esterol Reference Interval: Less than 200 Desirable 200-239 Borderline high risk 240 and above High risk Performed By: #### C MP, GFR #### [address] [address] Cholesterol in HDL [Mass/Vol] 41 mg/dL Normal 40-60 [facility] Comment on above: Performed By: #### C MP, GFR #### [address] [address] Cholesterol in LDL [Mass/Vol] 124 mg/dL Normal 0-130 [facility] Comment on above: Performed By: #### C MP, GFR #### [address] [address] Triglyceride [Mass/Vol] 230 mg/dL High 0-150 [facility] Comment on above: Result Comment: Trig lyceride Reference Interval: Less than 150 Normal 150-199 Borderline high risk 200-499 High risk 500 or higher Very high risk Performed By: #### C MP, GFR #### [address] [address] PTHon 07-04-2024 PTH, Intact 84.3 pg/mL Normal 18.5-88.0 [facility] Comment on above: Performed By: #### C MP, GFR #### [address] [place], [place] [address] VIDHon 07-04-2024 Vit. D 25-Hydroxy 38.4 ng/mL Normal [facility] Comment on above: Result Comment: Inte rpretive Values Based on Total 25([place]) Vitamin D: Deficient <20 ng/mL Insufficient 20 - <30 ng/mL Sufficient 30-100 ng/mL Performed By: #### C MP, GFR #### [address] [address] CBC W/Diff, Automatedon 10- Absolute Lymph 2.29 X10 3/uL Normal 0.83-4.51 [facility] Comment on above: Performed By: #### L 100.0100, L500.4050, L504.2610 ####[facility] [address] [place], [address] Absolute Neut 3.3 X10 3/uL Normal 2.0-7.7 [facility] Comment on above: Performed By: #### L 100.0100, L500.4050, L504.2610 ####[facility] [address] [place], [address] Basophils/100 WBC (Bld) 0.3 % Normal 0-1 [facility] Comment on above: Performed By: #### L 100.0100, L500.4050, L504.2610 ####[facility] [address] [place], [address] Eosinophils/100 WBC (Bld) 1.9 % Normal 0-5 [facility] Comment on above: Performed By: #### L 100.0100, L500.4050, L504.2610 ####[facility] [address] [place], [address] Erythrocyte distribution width (RBC) [Ratio] 13.1 % Normal 11.6-14.6 [facility] Comment on above: Performed By: #### L 100.0100, L500.4050, L504.2610 ####[facility] [address] [place], [address] Hematocrit (Bld) [Volume fraction] 38.5 % Low 40-54 [facility] Comment on above: Performed By: #### L 100.0100, L500.4050, L504.2610 ####[facility] [address] [place], [address] Hemoglobin (Bld) [Mass/Vol] 12.9 g/dL Low 13.0-16.5 [facility] Comment on above: Performed By: #### L 100.0100, L500.4050, L504.2610 ####[facility] [address] [place], [address] IG% 1.300 High 0.0-0.9 [facility] Comment on above: Result Comment: IG% - Immature Granulocytes (promyelocytes, myelocytes and metamyelocytes) > 1% indicates that a LEFT SHIFT is Present. Performed By: #### L 100.0100, L500.4050, L504.2610 ####[facility] [address] [place], [address] Lymphocytes/100 WBC (Bld) 35.9 % Normal 19-41 [facility] Comment on above: Performed By: #### L 100.0100, L500.4050, L504.2610 ####[facility] [address] [place], [address] MCH (RBC) [Entitic mass] 30.4 pg Normal 27.0-32.0 [facility] Comment on above: Performed By: #### L 100.0100, L500.4050, L504.2610 ####[facility] [address] [place], [address] MCHC (RBC) [Mass/Vol] 33.5 g/dL Normal 32-36 [facility] Comment on above: Performed By: #### L 100.0100, L500.4050, L504.2610 ####[facility] [address] [place], [address] MCV (RBC) [Entitic vol] 90.6 fL Normal 80-94 [facility] Comment on above: Performed By: #### L 100.0100, L500.4050, L504.2610 ####[facility] [address] [place], [address] Monocytes/100 WBC (Bld) 8.9 % Normal 0-10 [facility] Comment on above: Performed By: #### L 100.0100, L500.4050, L504.2610 ####[facility] [address] [place], [address] Neutrophils/100 WBC (Bld) 51.7 % Normal 47-70 [facility] Comment on above: Performed By: #### L 100.0100, L500.4050, L504.2610 ####[facility] [address] [place], [address] Nucleated RBC (Bld) [#/Vol] 0 10*3/uL Normal 0-5 [facility] Comment on above: Performed By: #### L 100.0100, L500.4050, L504.2610 ####[facility] [address] [place], [address] Platelet mean volume (Bld) [Entitic vol] 9.2 fL Normal 6.2-12.0 [facility] Comment on above: Performed By: #### L 100.0100, L500.4050, L504.2610 ####[facility] [address] [place], [address] Platelets (Bld) [#/Vol] 190 10*3/uL Normal 150-450 [facility] Comment on above: Performed By: #### L 100.0100, L500.4050, L504.2610 ####[facility] [address] [place], [address] RBC (Bld) [#/Vol] 4.25 10*6/uL Low 4.6-6.2 [facility] Comment on above: Performed By: #### L 100.0100, L500.4050, L504.2610 ####[facility] [address] [place], [address] RDW SD 42.6 fl Normal 35.1-43.9 [facility] Comment on above: Performed By: #### L 100.0100, L500.4050, L504.2610 ####[facility] [address] [place], [address] WBC (Bld) [#/Vol] 6.4 10*3/uL Normal 4.4-11.0 [facility] Comment on above: Performed By: #### L 100.0100, L500.4050, L504.2610 ####[facility] [address] [place], [address] Comprehensive Metabolic Prof [facility] 05-23-2024 Albumin [Mass/Vol] 3.6 g/dL Normal 3.2-5.0 [facility] Comment on above: Order Comment: 1 Performed By: #### L 100.0100, L500.4050, L504.2610 ####[facility] [address] [place], [address] Albumin/Globulin [Mass ratio] 1.3 {ratio} Normal 0.9-2.4 [facility] Comment on above: Order Comment: 1 Performed By: #### L 100.0100, L500.4050, L504.2610 ####[facility] [address] [place], [address] ALK P 108 U/L Normal 45-117 [facility] Comment on above: Order Comment: 1 Performed By: #### L 100.0100, L500.4050, L504.2610 ####[facility] [address] [place], [address] ALT [Catalytic activity/Vol] 24 U/L Normal 16-61 [facility] Comment on above: Order Comment: 1 Performed By: #### L 100.0100, L500.4050, L504.2610 ####[facility] [address] [place], [address] AST [Catalytic activity/Vol] 21 U/L Normal 15-37 [facility] Comment on above: Order Comment: 1 Performed By: #### L 100.0100, L500.4050, L504.2610 ####[facility] [address] [place], [address] Bilirubin [Mass/Vol] 0.50 mg/dL Normal 0.20-1.00 [facility] Comment on above: Order Comment: 1 Result Comment: For patients on eltrombopag therapy, use of Dimension [place] TBIL is not recommended. Performed By: #### L 100.0100, L500.4050, L504.2610 ####[facility] [address] [place], [address] BUN/CRE 16.1 RATIO Normal 10-20 [facility] Comment on above: Order Comment: 1 Performed By: #### L 100.0100, L500.4050, L504.2610 ####[facility] [address] [place], [address] CA,Total 9.3 mg/dL Normal 8.5-10.1 [facility] Comment on above: Order Comment: 1 Performed By: #### L 100.0100, L500.4050, L504.2610 ####[facility] [address] [place], [address] Chloride [Moles/Vol] 106 mmol/L Normal 98-107 [facility] Comment on above: Order Comment: 1 Performed By: #### L 100.0100, L500.4050, L504.2610 ####[facility] [address] [place], [address] CO2 [Moles/Vol] 28.0 mmol/L Normal 21.0-32.0 [facility] Comment on above: Order Comment: 1 Performed By: #### L 100.0100, L500.4050, L504.2610 ####[facility] [address] [place], [address] Creatinine [Mass/Vol] 1.24 mg/dL Normal 0.70-1.30 [facility] Comment on above: Order Comment: 1 Result Comment: The validity of the calculated GFR GFRAA in patients over 70 years has not been determined. Clinical correlation is essential. Performed By: #### L 100.0100, L500.4050, L504.2610 ####[facility] [address] [place], [address] ECRCL 55.93 ml/min Normal [facility] Comment on above: Order Comment: 1 Performed By: #### L 100.0100, L500.4050, L504.2610 ####[facility] [address] [place], [address] EST GFR - AA 72 mL/min Normal >60 [facility] Comment on above: Order Comment: 1 Result Comment: Afri can [place] GFR Calc Performed By: #### L 100.0100, L500.4050, L504.2610 ####[facility] [address] [place], [address] GAP 5 Normal 5-15 [facility] Comment on above: Order Comment: 1 Performed By: #### L 100.0100, L500.4050, L504.2610 ####[facility] [address] [place], [address] GFR/1.73 sq M.predicted among non-blacks MDRD (S/P/Bld) [Vol rate/Area] 60 mL/min/{1.73_m2} Normal >60 [facility] Comment on above: Order Comment: 1 Result Comment: Non- GFR Calc Performed By: #### L 100.0100, L500.4050, L504.2610 ####[facility] [address] [place], [address] Globulin (S) [Mass/Vol] 2.7 g/dL Normal 2.2-4.2 [facility] Comment on above: Order Comment: 1 Performed By: #### L 100.0100, L500.4050, L504.2610 ####[facility] [address] [place], [address] Glucose [Mass/Vol] 99 mg/dL Normal 74-106 [facility] Comment on above: Order Comment: 1 Performed By: #### L 100.0100, L500.4050, L504.2610 ####[facility] [address] [place], [address] Potassium [Moles/Vol] 3.8 mmol/L Normal 3.5-5.1 [facility] Comment on above: Order Comment: 1 Performed By: #### L 100.0100, L500.4050, L504.2610 ####[facility] [address] [place], [address] Sodium [Moles/Vol] 139 mmol/L Normal 136-145 [facility] Comment on above: Order Comment: 1 Performed By: #### L 100.0100, L500.4050, L504.2610 ####[facility] [address] [place], [address] T PROT 6.3 g/dL Low 6.4-8.2 [facility] Comment on above: Order Comment: 1 Performed By: #### L 100.0100, L500.4050, L504.2610 ####[facility] [address] [place], [address] Urea nitrogen [Mass/Vol] 20 mg/dL High 7-18 [facility] Comment on above: Order Comment: 1 Performed By: #### L 100.0100, L500.4050, L504.2610 ####[facility] [address] [place], [address] LDHon 05-23-2024 LDH 212 U/L Normal 87-241 [facility] Comment on above: Order Comment: 1 Performed By: #### L 100.0100, L500.4050, L504.2610 ####[facility] [address] [place], [address] Oncology Visit Reporton 04-25 Oncology Visit Report [facility] [address] [place] [address] OFFICE VISIT Date of Service: 05/23/24 1112 MR#: [id number] Acct: [id number] Name: EVY KONG Rep #: [id number] : 1945 From: Facundo Beatty MD Age/Sex: 78/M Location: [facility] Status: Signed HPI Subjective Date of Service 05/23/24 Chief Complaint Lymphoma On treatment History of Present Illness 78-year-old gentleman with past history of hypertension, dyslipidemia, innumerable subcutaneous lipomas since youth believed to be familial (father, multiple siblings) who sometime in late 2020/early 2021 noted some focal areas in the scalp where he started to lose hair, later on these lesions started to become elevated tumor-like. He was seen by a back pad inspector who injected local steroids but the lesions continued to grow. February 2022 he was seen by Dr. 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 A Ki-67 stain demonstrated an increased proliferative index, tumor cells were negative for CD31, CD10, [place] 1 and cyclin D1. March 30, 2022 PET/CT initial staging: MPRESSION: 1. ??? ABNORMAL EXAMINATION INDICATIVE OF MALIGNANT VIABLE NEOPLASM. 2.??? Facilitated radiopharmaceutical concentration noted in the bilateral-lateral, anterior and posterior and vertex scalp, the bilateral-lateral neck and right periauricular and right anterior neck regions fulfill quantitative criteria for viable neoplasm.??? July 06, 2022 CT neck: IMPRESSION: 1.3 cm x 1.4 cm inhomogeneously enhancing mass in the right orbit just posterior to the right globe.??? A neoplastic process should be able. Partial opacification of the maxillary sinuses bilaterally. July 06, 2022 CT head: IMPRESSION: Normal unenhanced and enhanced CT scan of the brain. Additional imaging was provided.??? There is evidence of a 1.3 cm x 1.4 cm heterogeneous enhancing soft tissue nodule in the lateral aspect of the right orbit just posterior to the right globe. July 24, 2022 MRI of the head and neck: IMPRESSION: 1.??? 1.6 x 1.5 x 1.2 cm solid enhancing mass in the lateral caudal aspect of the right orbital fossa without involvement of the lacrimal gland, optic nerve, extraocular muscles and orbital globe. This is worrisome for lymphoma but this is not FDG avid and unchanged when compared to whole body PET/CT fusion scan of 03/30/2022. 2.??? Focal atrophy and collapse of the left temporal scalp mass. This mass was previously FDG avid on the PET/CT fusion scan of 03/30/2022. 3.??? Interval collapse of the right lateral frontal scalp mass which was previously FDG avid on PET/CT fusion scan of 03/30/2022. November 01, 2022 PET/CT restaging at end of treatment: IMPRESSION: 1.??? NEGATIVE EXAMINATION.??? There is no definitive quantitative scintigraphic evidence of recurrent/viable neoplasm. 2.??? There is interim metabolic resolution of the prior defined scalp and bilateral lateral and right anterior neck hypermetabolic foci. 3.??? Overall, compared to the prior FG PET study dated 03/30/22, there is current absence of defined viable neoplastic disease with interim metabolic resolution of all prior defined quantitatively significant hypermetabolic foci. February 20, 2023 MRI of the head and neck including the orbits: Orbits IMPRESSION: 1. 1.38 x 0.90 cm intensely enhancing right lateral retrobulbar mass; favor meningioma or hemangioma, however definitive diagnosis would require tissue sampling or excision. The mass does not infiltrate into the adjacent structures or the overlying optic nerve complex but does make contact with the investing sheath of the lateral rectus muscle which is slightly thickened at its point of contact. 2. Mild bilateral optic neuritis is also present with slight fluid distention nerve sheath at the optic insertion sites. Brain: IMPRESSION: 1. Normal unenhanced and enhanced MRI of the brain. 2. There are no focal brain parenchymal lesions or edema. There is no abnormal enhancement of the brain parenchyma or meninges or dura. June 12, 2023 CT brain, soft tissues of the neck: IMPRESSION: Relatively stable right orbital intraconal mass. 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 Treatment summary and response: Bendamustine- Rituxan April 18, 2022-September 05, 2022 (6 cycles) Rituxan maintenance to start October 2022- [facility] Medical History Orbital tumor Hyperuricemia Gout Loss of hearing Wears glasses Wears partial dentures Bladder dis (more content not included)... Normal [facility] RENINon 01-16-2024 Renin Activity 0.389 ng/mL/hr Normal 0.167-5.380 [facility] Comment on above: Result Comment: This test was developed and its performance characteristics determined by [facility]. It has not been cleared or approved by the Food and Drug Administration. Performed At: [address] [id number] Cj Negrete MD Ph:[phone] Performed By: #### V IDH, LIPID, CBC, [id number], GFR, ANEU, ADIFF, CMP, PSA #### [place] [address] #### PTH #### [address] [address] .Auto Diffon 01-11-2024 Basophil, Absolute 0.1 10 3/mcL Normal 0.0-0.2 [facility] ([place]) Comment on above: Performed By: #### V IDH, LIPID, CBC, [id number], GFR, ANEU, ADIFF, CMP, PSA #### [place] [address] #### PTH #### [place] [address] Basophils/100 WBC (Bld) 1.0 % Normal 0.0-2.5 [facility] ([place]) Comment on above: Performed By: #### V IDH, LIPID, CBC, [id number], GFR, ANEU, ADIFF, CMP, PSA #### [place] [address] #### PTH #### [place] [address] Eosinophil, Absolute 0.2 10 3/mcL Normal 0.0-0.4 [facility] ([place]) Comment on above: Performed By: #### V IDH, LIPID, CBC, [id number], GFR, ANEU, ADIFF, CMP, PSA #### [place] [address] #### PTH #### [address] [address] Eosinophils/100 WBC (Bld) 2.5 % Normal 0.0-7.0 [facility] ([place]) Comment on above: Performed By: #### V IDH, LIPID, CBC, [id number], GFR, ANEU, ADIFF, CMP, PSA #### [place] [address] #### PTH #### [facility] [address] [place], [place] [address] Lymphocyte, Absolute 2.6 10 3/mcL Normal 0.8-3.9 [facility] ([place]) Comment on above: Performed By: #### V IDH, LIPID, CBC, [id number], GFR, ANEU, ADIFF, CMP, PSA #### [address] [address] #### PTH #### [address] [address] Lymphocytes/100 WBC (Bld) 37.2 % Normal 10.0-50.0 [facility] ([place]) Comment on above: Performed By: #### V IDH, LIPID, CBC, [id number], GFR, ANEU, ADIFF, CMP, PSA #### [place] [address] #### PTH #### [address] [address] Monocyte, Absolute 0.6 10 3/mcL Normal 0.2-1.0 [facility] ([place]) Comment on above: Performed By: #### V IDH, LIPID, CBC, [id number], GFR, ANEU, ADIFF, CMP, PSA #### [place] [address] #### PTH #### [address] [address] Monocytes/100 WBC (Bld) 8.0 % Normal 1.7-13.0 [facility] ([place]) Comment on above: Performed By: #### V IDH, LIPID, CBC, [id number], GFR, ANEU, ADIFF, CMP, PSA #### [place] [address] #### PTH #### [address] [address] Neutrophils/100 WBC (Bld) 51.3 % Normal 37.0-80.0 [facility] ([place]) Comment on above: Performed By: #### V IDH, LIPID, CBC, [id number], GFR, ANEU, ADIFF, CMP, PSA #### [place] [address] #### PTH #### [address] [address] .GFRon 01-11-2024 GFR 75 ml/min/1.73sqm Normal [facility] ([place]) Comment on above: Result Comment: GFR Population mean for , Non- Americans Ages 20-29 = 116 mL/min/1.73 sq.m. Ages 30-39 = 107 mL/min/1.73 sq.m. Ages 40-49 = 99 mL/min/1.73 sq.m. Ages 50-59 = 93 mL/min/1.73 sq.m. Ages 60-69 = 85 mL/min/1.73 sq.m. Ages 70+ = 75 mL/min/1.73 sq.m. Chronic Kidney Disease: Less than 60 mL/min/1.73 square meters End Stage Renal Disease: Less than 15 mL/min/1.73 square meters Performed By: #### V IDH, LIPID, CBC, [id number], GFR, ANEU, ADIFF, CMP, PSA #### [address] [address] #### PTH #### [place] [id number] GFR Non- 62 ml/min/1.73sqm Normal [facility] ([place]) Comment on above: Result Comment: GFR Population mean for , Non- Americans Ages 20-29 = 116 mL/min/1.73 sq.m. Ages 30-39 = 107 mL/min/1.73 sq.m. Ages 40-49 = 99 mL/min/1.73 sq.m. Ages 50-59 = 93 mL/min/1.73 sq.m. Ages 60-69 = 85 mL/min/1.73 sq.m. Ages 70+ = 75 mL/min/1.73 sq.m. Chronic Kidney Disease: Less than 60 mL/min/1.73 square meters End Stage Renal Disease: Less than 15 mL/min/1.73 square meters Performed By: #### V IDH, LIPID, CBC, [id number], GFR, ANEU, ADIFF, CMP, PSA #### [address] [address] #### PTH #### [address] [address] .NEUABSon 01-11-2024 Neutrophil, Absolute 3.5 10 3/mcL Normal 2.9-6.2 [facility] ([place]) Comment on above: Performed By: #### V IDH, LIPID, CBC, [id number], GFR, ANEU, ADIFF, CMP, PSA #### [place] [address] #### PTH #### [place] [address] CBCon 01-11-2024 Erythrocyte distribution width (RBC) [Ratio] 13.4 % Normal 11.5-14.5 [facility] ([place]) Comment on above: Performed By: #### V IDH, LIPID, CBC, [id number], GFR, ANEU, ADIFF, CMP, PSA #### [place] [address] #### PTH #### [place] [address] Hematocrit (Bld) [Volume fraction] 43.1 % Normal 42.0-52.0 [facility] ([place]) Comment on above: Performed By: #### V IDH, LIPID, CBC, [id number], GFR, ANEU, ADIFF, CMP, PSA #### [place] [address] #### PTH #### [place] [address] Hgb 14.6 G/dL Normal 14.0-18.0 [facility] ([place]) Comment on above: Performed By: #### V IDH, LIPID, CBC, [id number], GFR, ANEU, ADIFF, CMP, PSA #### [place] [address] #### PTH #### [place] [address] MCH (RBC) [Entitic mass] 30.5 pg Normal 27.0-31.2 [facility] ([place]) Comment on above: Performed By: #### V IDH, LIPID, CBC, [id number], GFR, ANEU, ADIFF, CMP, PSA #### [place] [address] #### PTH #### [place] [address] MCHC 33.9 G/dL Normal 31.8-35.4 [facility] ([place]) Comment on above: Performed By: #### V IDH, LIPID, CBC, [id number], GFR, ANEU, ADIFF, CMP, PSA #### [place] [address] #### PTH #### [place] [address] MCV (RBC) [Entitic vol] 90.1 fL Normal 80.0-94.0 [facility] ([place]) Comment on above: Performed By: #### V IDH, LIPID, CBC, [id number], GFR, ANEU, ADIFF, CMP, PSA #### [place] [address] #### PTH #### [place] [address] Platelet 201 10 3/mcL Normal 130-400 [facility] ([place]) Comment on above: Performed By: #### V IDH, LIPID, CBC, [id number], GFR, ANEU, ADIFF, CMP, PSA #### [place] [address] #### PTH #### [place] [address] Platelet mean volume (Bld) [Entitic vol] 7.8 fL Normal 7.4-10.4 [facility] ([place]) Comment on above: Performed By: #### V IDH, LIPID, CBC, [id number], GFR, ANEU, ADIFF, CMP, PSA #### [place] [address] #### PTH #### [place] [address] RBC 4.78 10 6/mcL Normal 4.04-6.13 [facility] ([place]) Comment on above: Performed By: #### V IDH, LIPID, CBC, [id number], GFR, ANEU, ADIFF, CMP, PSA #### [address] [address] #### PTH #### [address] [address] WBC 6.9 10 3/mcL Normal 4.6-10.8 [facility] ([place]) Comment on above: Performed By: #### V IDH, LIPID, CBC, [id number], GFR, ANEU, ADIFF, CMP, PSA #### [place] [address] #### PTH #### [place] [address] CMPon 01-11-2024 Albumin Level 3.9 G/dL Normal 3.4-4.8 [facility] ([place]) Comment on above: Performed By: #### V IDH, LIPID, CBC, [id number], GFR, ANEU, ADIFF, CMP, PSA #### [place] [address] #### PTH #### [place] [address] Albumin/Globulin [Mass ratio] 1.4 {ratio} Normal 1.1-2.5 [facility] ([place]) Comment on above: Performed By: #### V IDH, LIPID, CBC, [id number], GFR, ANEU, ADIFF, CMP, PSA #### [place] [address] #### PTH #### [place] [address] ALP [Catalytic activity/Vol] 103 U/L Normal 40-135 [facility] ([place]) Comment on above: Performed By: #### V IDH, LIPID, CBC, [id number], GFR, ANEU, ADIFF, CMP, PSA #### [place] [address] #### PTH #### [place] [id number] ALT [Catalytic activity/Vol] 25 U/L Normal 16-63 [facility] ([place]) Comment on above: Performed By: #### V IDH, LIPID, CBC, [id number], GFR, ANEU, ADIFF, CMP, PSA #### [address] [address] #### PTH #### [address] [address] AST [Catalytic activity/Vol] 18 U/L Normal 10-40 [facility] ([place]) Comment on above: Performed By: #### V IDH, LIPID, CBC, [id number], GFR, ANEU, ADIFF, CMP, PSA #### [place] [address] #### PTH #### [address] [address] Bili Total 0.6 mg/dL Normal 0.2-1.0 [facility] ([place]) Comment on above: Result Comment: Use of this assay is not recommended for patients undergoing treatment with eltrombopag due to the potential for falsely elevated results. Performed By: #### V IDH, LIPID, CBC, [id number], GFR, ANEU, ADIFF, CMP, PSA #### [place] [address] #### PTH #### [address] [address] BUN/Creatinine Ratio 15 ratio Normal 7-27 [facility] ([place] Comment on above: Performed By: #### V IDH, LIPID, CBC, [id number], GFR, ANEU, ADIFF, CMP, PSA #### [place] [address] #### PTH #### [address] [address] Calcium [Mass/Vol] 9.5 mg/dL Normal 8.4-10.2 [facility] ([place]) Comment on above: Performed By: #### V IDH, LIPID, CBC, [id number], GFR, ANEU, ADIFF, CMP, PSA #### [place] [address] #### PTH #### [address] [address] Chloride [Moles/Vol] 103 mmol/L Normal 98-107 [facility] ([place] Comment on above: Performed By: #### V IDH, LIPID, CBC, [id number], GFR, ANEU, ADIFF, CMP, PSA #### [address] [address] #### PTH #### [address] [address] CO2 [Moles/Vol] 29 mmol/L Normal 23-31 [facility] ([place]) Comment on above: Performed By: #### V IDH, LIPID, CBC, [id number], GFR, ANEU, ADIFF, CMP, PSA #### [address] [address] #### PTH #### [address] [address] Creatinine [Mass/Vol] 1.15 mg/dL Normal 0.70-1.30 [facility] ([place]) Comment on above: Performed By: #### V IDH, LIPID, CBC, [id number], GFR, ANEU, ADIFF, CMP, PSA #### [address] [address] #### PTH #### [address] [address] Electrolyte Balance 7.0 mEq/L Normal 4.0-15.0 [facility] ([place]) Comment on above: Performed By: #### V IDH, LIPID, CBC, [id number], GFR, ANEU, ADIFF, CMP, PSA #### [address] [address] #### PTH #### [place] [address] Globulin 2.7 G/dL Normal [facility] ([place]) Comment on above: Performed By: #### V IDH, LIPID, CBC, [id number], GFR, ANEU, ADIFF, CMP, PSA #### [address] [address] #### PTH #### [address] [address] Glucose [Mass/Vol] 93 mg/dL Normal 83-110 [facility] ([place]) Comment on above: Performed By: #### V IDH, LIPID, CBC, [id number], GFR, ANEU, ADIFF, CMP, PSA #### [address] [address] #### PTH #### [address] [address] Potassium [Moles/Vol] 3.8 mmol/L Normal 3.5-5.1 [facility] ([place]) Comment on above: Performed By: #### V IDH, LIPID, CBC, [id number], GFR, ANEU, ADIFF, CMP, PSA #### [address] [address] #### PTH #### [address] [address] Sodium [Moles/Vol] 139 mmol/L Normal 136-145 [facility] ([place]) Comment on above: Performed By: #### V IDH, LIPID, CBC, [id number], GFR, ANEU, ADIFF, CMP, PSA #### [address] [address] #### PTH #### [address] [address] Total Protein 6.6 G/dL Normal 6.4-8.2 [facility] ([place]) Comment on above: Performed By: #### V IDH, LIPID, CBC, [id number], GFR, ANEU, ADIFF, CMP, PSA #### [address] [address] #### PTH #### [address] [address] Urea nitrogen [Mass/Vol] 17 mg/dL Normal 7-18 [facility] ([place]) Comment on above: Performed By: #### V IDH, LIPID, CBC, [id number], GFR, ANEU, ADIFF, CMP, PSA #### [address] [address] #### PTH #### [address] [place], [place] [address] LABORATORYOrdered By: SYSTEM SYSTEM on 01-11-2024 25-hydroxyvitamin D3 [Mass/Vol] 37.9 ng/mL Invalid Interpretation Code AO ADM SS Comment on above: Interpretive Data: I nterpretive Values Based on Total 25(OH) Vitamin D: Deficient <20 ng/mL Insufficient 20 - <30 ng/mL Sufficient 30-100 ng/mL Albumin BCP dye [Mass/Vol] 3.9 G/dL Normal 3.4 - 4.8 G/dL AO ADM SS Albumin/Globulin [Mass ratio] 1.4 {ratio} Normal 1.1 - 2.5 ratio AO ADM SS ALP [Catalytic activity/Vol] 103 U/L Normal 40 - 135 U/L AO ADM SS ALT With P-5'-P [Catalytic activity/Vol] 25 U/L Normal 16 - 63 U/L AO ADM SS AST With P-5'-P [Catalytic activity/Vol] 18 U/L Normal 10 - 40 U/L AO ADM SS Basophil, Absolute 0.1 103/mcL Normal 0.0 - 0.2 10^3/mcL AO Workflow SS Basophils/100 WBC (Bld) 1.0 % Normal 0.0 - 2.5 % AO Workflow SS Bilirubin [Mass/Vol] 0.6 mg/dL Normal 0.2 - 1 .0 mg/dL AO ADM SS Comment on above: Interpretive Data: U se of this assay is not recommended for patients undergoing treatment with eltrombopag due to the potential for falsely elevated results. Calcium [Mass/Vol] 9.5 mg/dL Normal 8.4 - 10. 2 mg/dL AO ADM SS Chloride [Moles/Vol] 103 mmol/L Normal 98 - 10 7 mmol/L AO ADM SS CO2 [Moles/Vol] 29 mmol/L Normal 23 - 31 mmol/L AO ADM SS Creatinine [Mass/Vol] 1.15 mg/dL Normal 0.70 - 1.30 mg/dL AO ADM SS Electrolyte Balance 7.0 mEq/L Normal 4.0 - 15 .0 mEq/L AO ADM SS Eosinophil, Absolute 0.2 103/mcL Normal 0.0 - 0 .4 10^3/mcL AO Workflow SS Eosinophils/100 WBC (Bld) 2.5 % Normal 0.0 - 7.0 % AO Workflow SS Erythrocyte distribution width (RBC) [Ratio] 13.4 % Normal 11.5 - 14.5 % AO Workflow SS GFR/1.73 sq M.predicted among blacks MDRD (S/P/Bld) [Vol rate/Area] 75 ml/min/1.73sqm Invalid Interpretation Code AO Chemistry S Comment on above: Interpretive Data: GFR Population mean for , Non- Americans Ages 20-29 = 116 mL/min/1.73 sq.m. Ages 30-39 = 107 mL/min/1.73 sq.m. Ages 40-49 = 99 mL/min/1.73 sq.m. Ages 50-59 = 93 mL/min/1.73 sq.m. Ages 60-69 = 85 mL/min/1.73 sq.m. Ages 70+ = 75 mL/min/1.73 sq.m. Chronic Kidney Disease: Less than 60 mL/min/1.73 square meters End Stage Renal Disease: Less than 15 mL/min/1.73 square meters GFR/1.73 sq M.predicted among non-blacks MDRD (S/P/Bld) [Vol rate/Area] 62 ml/min/1.73sqm Invalid Interpretation Code AO Chemistry S Comment on above: Interpretive Data: GFR Population mean for , Non- Americans Ages 20-29 = 116 mL/min/1.73 sq.m. Ages 30-39 = 107 mL/min/1.73 sq.m. Ages 40-49 = 99 mL/min/1.73 sq.m. Ages 50-59 = 93 mL/min/1.73 sq.m. Ages 60-69 = 85 mL/min/1.73 sq.m. Ages 70+ = 75 mL/min/1.73 sq.m. Chronic Kidney Disease: Less than 60 mL/min/1.73 square meters End Stage Renal Disease: Less than 15 mL/min/1.73 square meters Globulin 2.7 G/dL Invalid Interpretation Code AO ADM SS Glucose [Mass/Vol] 93 mg/dL Normal 83 - 110 mg/dL AO ADM SS Hematocrit (Bld) [Volume fraction] 43.1 % Normal 42.0 - 52.0 % AO Workflow SS Hemoglobin (Bld) [Mass/Vol] 14.6 G/dL Normal 14.0 - 18.0 G/dL AO Workflow SS Lymphocyte, Absolute 2.6 103/mcL Normal 0.8 - 3 .9 10^3/mcL AO Workflow SS Lymphocytes/100 WBC (Bld) 37.2 % Normal 10.0 - 50.0 % AO Workflow SS MCH (RBC) [Entitic mass] 30.5 pg Normal 27.0 - 31.2 pg AO Workflow SS MCHC 33.9 G/dL Normal 31.8 - 35.4 G/dL AO Workflow SS MCV (RBC) [Entitic vol] 90.1 fL Normal 80.0 - 94.0 fL AO Workflow SS Monocyte, Absolute 0.6 103/mcL Normal 0.2 - 1.0 10^3/mcL AO Workflow SS Monocytes/100 WBC (Bld) 8.0 % Normal 1.7 - 13.0 % AO Workflow SS Neutrophil, Absolute 3.5 103/mcL Normal 2.9 - 6 .2 10^3/mcL AO Workflow SS Neutrophils/100 WBC (Bld) 51.3 % Normal 37.0 - 80.0 % AO Workflow SS Parathyrin.intact [Mass/Vol] 60.0 pg/mL Normal 18.5 - 88.0 pg/mL AH ADM SS Platelet mean volume (Bld) [Entitic vol] 7.8 fL Normal 7.4 - 10.4 fL AO Workflow SS Platelets (Bld) [#/Vol] 201 103/mcL Normal 130 - 400 10^3/mcL AO Workflow SS Potassium [Moles/Vol] 3.8 mmol/L Normal 3.5 - 5.1 mmol/L AO ADM SS Prostate specific Ag [Mass/Vol] 2.70 ng/mL Normal 0.00 - 4.00 ng/mL AO ADM SS Protein [Mass/Vol] 6.6 G/dL Normal 6.4 - 8.2 G/dL AO ADM SS RBC (Bld) [#/Vol] 4.78 106/mcL Normal 4.04 - 6.1 3 10^6/mcL AO Workflow SS Sodium [Moles/Vol] 139 mmol/L Normal 136 - 145 mmol/L AO ADM SS Urea nitrogen [Mass/Vol] 17 mg/dL Normal 7 - 18 mg/dL AO ADM SS Urea nitrogen/Creatinine [Mass ratio] 15 ratio Normal 7 - 27 ratio AO ADM SS WBC (Bld) [#/Vol] 6.9 103/mcL Normal 4.6 - 10.8 10^3/mcL AO Workflow SS LABORATORYOrdered By: Myesha Bacon on 01-11-2024 Albumin DL <= 20 mg/L (U) [Mass/Vol] 2142 mcg/dL Invalid Interpretation Code AO ADM SS Albumin/Creatinine DL <= 20 mg/L (U) [Mass ratio] 38 mcg/mg High 0 - 30 mcg/mg AO ADM SS Cholesterol [Mass/Vol] 158 mg/dL Normal 0 - 2 00 mg/dL AO ADM SS Comment on above: Interpretive Data: C holesterol Reference Interval: Less than 200 Desirable 200-239 Borderline high risk 240 and above High risk Cholesterol in HDL [Mass/Vol] 37 mg/dL Low 40 - 60 mg/dL AO ADM SS Cholesterol in LDL [Mass/Vol] 68 mg/dL Normal 0 - 130 mg/dL AO ADM SS Creatinine (U) [Mass/Vol] 56.9 mg/dL Normal 39.0 - 259.0 mg/dL AO ADM SS Triglyceride [Mass/Vol] 266 mg/dL High 0 - 150 mg/dL AO ADM SS Comment on above: Interpretive Data: T riglyceride Reference Interval: Less than 150 Normal 150-199 Borderline high risk 200-499 High risk 500 or higher Very high risk LIPIDon 01-11-2024 Cholesterol [Mass/Vol] 158 mg/dL Normal 0-200 [facility] ([place]) Comment on above: Result Comment: Chol esterol Reference Interval: Less than 200 Desirable 200-239 Borderline high risk 240 and above High risk Performed By: #### V IDH, LIPID, CBC, [id number], GFR, ANEU, ADIFF, CMP, PSA #### [address] [address] #### PTH #### [address] [address] Cholesterol in HDL [Mass/Vol] 37 mg/dL Low 40-60 [facility] ([place]) Comment on above: Performed By: #### V IDH, LIPID, CBC, [id number], GFR, ANEU, ADIFF, CMP, PSA #### [address] [address] #### PTH #### [address] [address] Cholesterol in LDL [Mass/Vol] 68 mg/dL Normal 0-130 [facility] ([place]) Comment on above: Performed By: #### V IDH, LIPID, CBC, [id number], GFR, ANEU, ADIFF, CMP, PSA #### [address] [address] #### PTH #### [address] [address] Triglyceride [Mass/Vol] 266 mg/dL High 0-150 [facility] ([place]) Comment on above: Result Comment: Trig lyceride Reference Interval: Less than 150 Normal 150-199 Borderline high risk 200-499 High risk 500 or higher Very high risk Performed By: #### V IDH, LIPID, CBC, [id number], GFR, ANEU, ADIFF, CMP, PSA #### [place] [address] #### PTH #### [place] [address] MALBRon 01-10-2023 U Creatinine 56.9 mg/dL Normal 39.0-259.0 [facility] ([place]) Comment on above: Performed By: #### V IDH, LIPID, CBC, [id number], GFR, ANEU, ADIFF, CMP, PSA #### [address] [address] #### PTH #### [place] [address] U Microalb 2142 mcg/dL Normal [facility] ([place]) Comment on above: Performed By: #### V IDH, LIPID, CBC, [id number], GFR, ANEU, ADIFF, CMP, PSA #### [address] [address] #### PTH #### [place] [address] U Ratio Alb/Cre 38 mcg/mg High 0-30 [facility] ([place]) Comment on above: Performed By: #### V IDH, LIPID, CBC, [id number], GFR, ANEU, ADIFF, CMP, PSA #### [place] [address] #### PTH #### [address] [address] PSAon 01-11-2024 Prostate Specific Antigen 2.70 ng/mL Normal 0.00-4.00 [facility] ([place]) Comment on above: Performed By: #### V IDH, LIPID, CBC, [id number], GFR, ANEU, ADIFF, CMP, PSA #### [address] [address] #### PTH #### [place] [address] PTHon 01-11-2024 PTH, Intact 60.0 pg/mL Normal 18.5-88.0 [facility] ([place]) Comment on above: Performed By: #### V IDH, LIPID, CBC, [id number], GFR, ANEU, ADIFF, CMP, PSA #### [address] [address] #### PTH #### [place] [address] VIDHon 01-11-2024 Vit. D 25-Hydroxy 37.9 ng/mL Normal [facility] ([place]) Comment on above: Result Comment: Inte rpretive Values Based on Total 25(OH) Vitamin D: Deficient <20 ng/mL Insufficient 20 - <30 ng/mL Sufficient 30-100 ng/mL Performed By: #### V IDH, LIPID, CBC, [id number], GFR, ANEU, ADIFF, CMP, PSA #### [place] [address] #### PTH #### [place] [address] RENINon 06-30-2023 Renin Activity Not performed Normal [facility] ([place]) Comment on above: Result Comment: Test not performed. No frozen plasma received. Contacted Jaleesa Cui at your facility 06/30/2023 This test was developed and its performance characteristics determined by [email or web address]. It has not been cleared or approved by the Food and Drug Administration. Performed At: [address] [id number] Cj Negrete MD Ph:[phone] Performed By: #### V IDH, LIPID, CBC, [id number], GFR, ANEU, ADIFF, CMP, PSA #### [place] [address] #### PTH #### [address] [address] .Auto Diffon 06-29-2023 Basophil, Absolute 0.0 10 3/mcL Normal 0.0-0.2 [facility] ([place]) Comment on above: Performed By: #### V IDH, LIPID, CBC, [id number], GFR, ANEU, ADIFF, CMP, PSA #### [place] [address] #### PTH #### [address] [address] Basophils/100 WBC (Bld) 0.4 % Normal 0.0-2.5 [facility] ([place]) Comment on above: Performed By: #### V IDH, LIPID, CBC, [id number], GFR, ANEU, ADIFF, CMP, PSA #### [place] [address] #### PTH #### [place] [address] Eosinophil, Absolute 0.2 10 3/mcL Normal 0.0-0.4 [facility] ([place]) Comment on above: Performed By: #### V IDH, LIPID, CBC, [id number], GFR, ANEU, ADIFF, CMP, PSA #### [place] [address] #### PTH #### [address] [address] Eosinophils/100 WBC (Bld) 2.7 % Normal 0.0-7.0 [facility] ([place]) Comment on above: Performed By: #### V IDH, LIPID, CBC, [id number], GFR, ANEU, ADIFF, CMP, PSA #### [place] [address] #### PTH #### [facility] [address] [place], [place] [address] Lymphocyte, Absolute 2.1 10 3/mcL Normal 0.8-3.9 [facility] ([place]) Comment on above: Performed By: #### V IDH, LIPID, CBC, [id number], GFR, ANEU, ADIFF, CMP, PSA #### [address] [address] #### PTH #### [address] [address] Lymphocytes/100 WBC (Bld) 26.8 % Normal 10.0-50.0 [facility] ([place]) Comment on above: Performed By: #### V IDH, LIPID, CBC, [id number], GFR, ANEU, ADIFF, CMP, PSA #### [place] [address] #### PTH #### [address] [address] Monocyte, Absolute 0.7 10 3/mcL Normal 0.2-1.0 [facility] ([place] Comment on above: Performed By: #### V IDH, LIPID, CBC, [id number], GFR, ANEU, ADIFF, CMP, PSA #### [place] [address] #### PTH #### [address] [address] Monocytes/100 WBC (Bld) 9.0 % Normal 1.7-13.0 [facility] ([place]) Comment on above: Performed By: #### V IDH, LIPID, CBC, [id number], GFR, ANEU, ADIFF, CMP, PSA #### [place] [address] #### PTH #### [address] [address] Neutrophils/100 WBC (Bld) 61.1 % Normal 37.0-80.0 [facility] ([place]) Comment on above: Performed By: #### V IDH, LIPID, CBC, [id number], GFR, ANEU, ADIFF, CMP, PSA #### [place] [address] #### PTH #### [address] [address] .GFRon 06-29-2023 GFR Non- 57 ml/min/1.73sqm Normal [facility] ([place]) Comment on above: Result Comment: GFR Population mean for , Non- Americans Ages 20-29 = 116 mL/min/1.73 sq.m. Ages 30-39 = 107 mL/min/1.73 sq.m. Ages 40-49 = 99 mL/min/1.73 sq.m. Ages 50-59 = 93 mL/min/1.73 sq.m. Ages 60-69 = 85 mL/min/1.73 sq.m. Ages 70+ = 75 mL/min/1.73 sq.m. Chronic Kidney Disease: Less than 60 mL/min/1.73 square meters End Stage Renal Disease: Less than 15 mL/min/1.73 square meters Performed By: #### V IDH, LIPID, CBC, [id number], GFR, ANEU, ADIFF, CMP, PSA #### [address] [address] #### PTH #### [address] [address] GFR 69 ml/min/1.73sqm Normal [facility] ([place]) Comment on above: Result Comment: GFR Population mean for , Non- Americans Ages 20-29 = 116 mL/min/1.73 sq.m. Ages 30-39 = 107 mL/min/1.73 sq.m. Ages 40-49 = 99 mL/min/1.73 sq.m. Ages 50-59 = 93 mL/min/1.73 sq.m. Ages 60-69 = 85 mL/min/1.73 sq.m. Ages 70+ = 75 mL/min/1.73 sq.m. Chronic Kidney Disease: Less than 60 mL/min/1.73 square meters End Stage Renal Disease: Less than 15 mL/min/1.73 square meters Performed By: #### V IDH, LIPID, CBC, [id number], GFR, ANEU, ADIFF, CMP, PSA #### [address] [address] #### PTH #### [address] [address] .NEUABSon 06-29-2023 Neutrophil, Absolute 4.7 10 3/mcL Normal 2.9-6.2 [facility] ([place]) Comment on above: Performed By: #### V IDH, LIPID, CBC, [id number], GFR, ANEU, ADIFF, CMP, PSA #### [place] [address] #### PTH #### [place] [address] CBCon 06-29-2023 Erythrocyte distribution width (RBC) [Ratio] 13.7 % Normal 11.5-14.5 [facility] ([place]) Comment on above: Performed By: #### V IDH, LIPID, CBC, [id number], GFR, ANEU, ADIFF, CMP, PSA #### [place] [address] #### PTH #### [place] [address] Hematocrit (Bld) [Volume fraction] 40.9 % Low 42.0-52.0 [facility] ([place]) Comment on above: Performed By: #### V IDH, LIPID, CBC, [id number], GFR, ANEU, ADIFF, CMP, PSA #### [address] [address] #### PTH #### [place] [address] Hgb 13.8 G/dL Low 14.0-18.0 [facility] ([place]) Comment on above: Performed By: #### V IDH, LIPID, CBC, [id number], GFR, ANEU, ADIFF, CMP, PSA #### [place] [address] #### PTH #### [place] [address] MCH (RBC) [Entitic mass] 30.7 pg Normal 27.0-31.2 [facility] ([place]) Comment on above: Performed By: #### V IDH, LIPID, CBC, [id number], GFR, ANEU, ADIFF, CMP, PSA #### [place] [address] #### PTH #### [place] [address] MCHC 33.8 G/dL Normal 31.8-35.4 [facility] ([place]) Comment on above: Performed By: #### V IDH, LIPID, CBC, [id number], GFR, ANEU, ADIFF, CMP, PSA #### [place] [address] #### PTH #### [place] [address] MCV (RBC) [Entitic vol] 90.8 fL Normal 80.0-94.0 A [facility] ([place]) Comment on above: Performed By: #### V IDH, LIPID, CBC, [id number], GFR, ANEU, ADIFF, CMP, PSA #### [place] [address] #### PTH #### [place] [address] Platelet 230 10 3/mcL Normal 130-400 [facility] ([place]) Comment on above: Performed By: #### V IDH, LIPID, CBC, [id number], GFR, ANEU, ADIFF, CMP, PSA #### [place] [address] #### PTH #### [place] [address] Platelet mean volume (Bld) [Entitic vol] 7.4 fL Normal 7.4-10.4 [facility] ([place]) Comment on above: Performed By: #### V IDH, LIPID, CBC, [id number], GFR, ANEU, ADIFF, CMP, PSA #### [place] [address] #### PTH #### [place] [address] RBC 4.51 10 6/mcL Normal 4.04-6.13 [facility] ([place]) Comment on above: Performed By: #### V IDH, LIPID, CBC, [id number], GFR, ANEU, ADIFF, CMP, PSA #### [place] [address] #### PTH #### [place] [address] WBC 7.7 10 3/mcL Normal 4.6-10.8 [facility] ([place]) Comment on above: Performed By: #### V IDH, LIPID, CBC, [id number], GFR, ANEU, ADIFF, CMP, PSA #### [place] [address] #### PTH #### [place] [address] CMPon 06-29-2023 Albumin Level 3.7 G/dL Normal 3.4-4.8 [facility] ([place]) Comment on above: Performed By: #### V IDH, LIPID, CBC, [id number], GFR, ANEU, ADIFF, CMP, PSA #### [place] [address] #### PTH #### [place] [address] Albumin/Globulin [Mass ratio] 1.3 {ratio} Normal 1.1-2.5 [facility] ([place]) Comment on above: Performed By: #### V IDH, LIPID, CBC, [id number], GFR, ANEU, ADIFF, CMP, PSA #### [place] [address] #### PTH #### [place] [address] ALP [Catalytic activity/Vol] 110 U/L Normal 40-135 [facility] ([place]) Comment on above: Performed By: #### V IDH, LIPID, CBC, [id number], GFR, ANEU, ADIFF, CMP, PSA #### [place] [address] #### PTH #### [place] [address] ALT [Catalytic activity/Vol] 42 U/L Normal 16-63 [facility] ([place]) Comment on above: Performed By: #### V IDH, LIPID, CBC, [id number], GFR, ANEU, ADIFF, CMP, PSA #### [address] [address] #### PTH #### [address] [address] AST [Catalytic activity/Vol] 29 U/L Normal 10-40 [facility] ([place]) Comment on above: Performed By: #### V IDH, LIPID, CBC, [id number], GFR, ANEU, ADIFF, CMP, PSA #### [place] [address] #### PTH #### [place] [address] Bili Total 0.6 mg/dL Normal 0.2-1.0 [facility] ([place]) Comment on above: Result Comment: Use of this assay is not recommended for patients undergoing treatment with eltrombopag due to the potential for falsely elevated results. Performed By: #### V IDH, LIPID, CBC, [id number], GFR, ANEU, ADIFF, CMP, PSA #### [place] [address] #### PTH #### [place] [address] BUN/Creatinine Ratio 19 ratio Normal 7-27 [facility] ([place] Comment on above: Performed By: #### V IDH, LIPID, CBC, [id number], GFR, ANEU, ADIFF, CMP, PSA #### [place] [address] #### PTH #### [address] [address] Calcium [Mass/Vol] 9.8 mg/dL Normal 8.4-10.2 [facility] ([place]) Comment on above: Performed By: #### V IDH, LIPID, CBC, [id number], GFR, ANEU, ADIFF, CMP, PSA #### [place] [address] #### PTH #### [place] [address] Chloride [Moles/Vol] 104 mmol/L Normal 98-107 [facility] ([place]) Comment on above: Performed By: #### V IDH, LIPID, CBC, [id number], GFR, ANEU, ADIFF, CMP, PSA #### [address] [address] #### PTH #### [place] [address] CO2 [Moles/Vol] 29 mmol/L Normal 23-31 [facility] ([place]) Comment on above: Performed By: #### V IDH, LIPID, CBC, [id number], GFR, ANEU, ADIFF, CMP, PSA #### [address] [address] #### PTH #### [place] [address] Creatinine [Mass/Vol] 1.23 mg/dL Normal 0.70-1.30 [facility] ([place]) Comment on above: Performed By: #### V IDH, LIPID, CBC, [id number], GFR, ANEU, ADIFF, CMP, PSA #### [address] [address] #### PTH #### [place] [address] Electrolyte Balance 5.0 mEq/L Normal 4.0-15.0 [facility] ([place]) Comment on above: Performed By: #### V IDH, LIPID, CBC, [id number], GFR, ANEU, ADIFF, CMP, PSA #### [address] [address] #### PTH #### [place] [address] Globulin 2.9 G/dL Normal [facility] ([place]) Comment on above: Performed By: #### V IDH, LIPID, CBC, [id number], GFR, ANEU, ADIFF, CMP, PSA #### [address] [address] #### PTH #### [place] [address] Glucose [Mass/Vol] 102 mg/dL Normal 83-110 [facility] ([place]) Comment on above: Performed By: #### V IDH, LIPID, CBC, [id number], GFR, ANEU, ADIFF, CMP, PSA #### [address] [address] #### PTH #### [address] [address] Potassium [Moles/Vol] 4.8 mmol/L Normal 3.5-5.1 [facility] ([place]) Comment on above: Performed By: #### V IDH, LIPID, CBC, [id number], GFR, ANEU, ADIFF, CMP, PSA #### [address] [address] #### PTH #### [place] [address] Sodium [Moles/Vol] 138 mmol/L Normal 136-145 [facility] ([place]) Comment on above: Performed By: #### V IDH, LIPID, CBC, [id number], GFR, ANEU, ADIFF, CMP, PSA #### [address] [address] #### PTH #### [address] [address] Total Protein 6.6 G/dL Normal 6.4-8.2 [facility] ([place]) Comment on above: Performed By: #### V IDH, LIPID, CBC, [id number], GFR, ANEU, ADIFF, CMP, PSA #### [address] [address] #### PTH #### [address] [address] Urea nitrogen [Mass/Vol] 23 mg/dL High 7-18 [facility] ([place]) Comment on above: Performed By: #### V IDH, LIPID, CBC, [id number], GFR, ANEU, ADIFF, CMP, PSA #### [address] [address] #### PTH #### [address] [address] LABORATORYOrdered By: SYSTEM SYSTEM on 06-29-2023 25-hydroxyvitamin D3 [Mass/Vol] 38.1 ng/mL Invalid Interpretation Code AO ADM SS Comment on above: Interpretive Data: I nterpretive Values Based on Total 25(OH) Vitamin D: Deficient <20 ng/mL Insufficient 20 - <30 ng/mL Sufficient 30-100 ng/mL Albumin BCP dye [Mass/Vol] 3.7 G/dL Normal 3.4 - 4.8 G/dL AO ADM SS Albumin/Globulin [Mass ratio] 1.3 {ratio} Normal 1.1 - 2.5 ratio AO ADM SS ALP [Catalytic activity/Vol] 110 U/L Normal 40 - 135 U/L AO ADM SS ALT With P-5'-P [Catalytic activity/Vol] 42 U/L Normal 16 - 63 U/L AO ADM SS AST With P-5'-P [Catalytic activity/Vol] 29 U/L Normal 10 - 40 U/L AO ADM SS Basophil, Absolute 0.0 103/mcL Normal 0.0 - 0.2 10^3/mcL AO Workflow SS Basophils/100 WBC (Bld) 0.4 % Normal 0.0 - 2.5 % AO Workflow SS Bilirubin [Mass/Vol] 0.6 mg/dL Normal 0.2 - 1 .0 mg/dL AO ADM SS Comment on above: Interpretive Data: U se of this assay is not recommended for patients undergoing treatment with eltrombopag due to the potential for falsely elevated results. Calcium [Mass/Vol] 9.8 mg/dL Normal 8.4 - 10. 2 mg/dL AO ADM SS Chloride [Moles/Vol] 104 mmol/L Normal 98 - 10 7 mmol/L AO ADM SS CO2 [Moles/Vol] 29 mmol/L Normal 23 - 31 mmol/L AO ADM SS Creatinine [Mass/Vol] 1.23 mg/dL Normal 0.70 - 1.30 mg/dL AO ADM SS Electrolyte Balance 5.0 mEq/L Normal 4.0 - 15 .0 mEq/L AO ADM SS Eosinophil, Absolute 0.2 103/mcL Normal 0.0 - 0 .4 10^3/mcL AO Workflow SS Eosinophils/100 WBC (Bld) 2.7 % Normal 0.0 - 7.0 % AO Workflow SS Erythrocyte distribution width (RBC) [Ratio] 13.7 % Normal 11.5 - 14.5 % AO Workflow SS GFR/1.73 sq M.predicted among blacks MDRD (S/P/Bld) [Vol rate/Area] 69 ml/min/1.73sqm Invalid Interpretation Code AO Chemistry S Comment on above: Interpretive Data: GFR Population mean for , Non- Americans Ages 20-29 = 116 mL/min/1.73 sq.m. Ages 30-39 = 107 mL/min/1.73 sq.m. Ages 40-49 = 99 mL/min/1.73 sq.m. Ages 50-59 = 93 mL/min/1.73 sq.m. Ages 60-69 = 85 mL/min/1.73 sq.m. Ages 70+ = 75 mL/min/1.73 sq.m. Chronic Kidney Disease: Less than 60 mL/min/1.73 square meters End Stage Renal Disease: Less than 15 mL/min/1.73 square meters GFR/1.73 sq M.predicted among non-blacks MDRD (S/P/Bld) [Vol rate/Area] 57 ml/min/1.73sqm Invalid Interpretation Code AO Chemistry S Comment on above: Interpretive Data: GFR Population mean for , Non- Americans Ages 20-29 = 116 mL/min/1.73 sq.m. Ages 30-39 = 107 mL/min/1.73 sq.m. Ages 40-49 = 99 mL/min/1.73 sq.m. Ages 50-59 = 93 mL/min/1.73 sq.m. Ages 60-69 = 85 mL/min/1.73 sq.m. Ages 70+ = 75 mL/min/1.73 sq.m. Chronic Kidney Disease: Less than 60 mL/min/1.73 square meters End Stage Renal Disease: Less than 15 mL/min/1.73 square meters Globulin 2.9 G/dL Invalid Interpretation Code AO ADM SS Glucose [Mass/Vol] 102 mg/dL Normal 83 - 110 mg/dL AO ADM SS Hematocrit (Bld) [Volume fraction] 40.9 % Low 42.0 - 52.0 % AO Workflow SS Hemoglobin (Bld) [Mass/Vol] 13.8 G/dL Low 14.0 - 18.0 G/dL AO Workflow SS Lymphocyte, Absolute 2.1 103/mcL Normal 0.8 - 3 .9 10^3/mcL AO Workflow SS Lymphocytes/100 WBC (Bld) 26.8 % Normal 10.0 - 50.0 % AO Workflow SS MCH (RBC) [Entitic mass] 30.7 pg Normal 27.0 - 31.2 pg AO Workflow SS MCHC 33.8 G/dL Normal 31.8 - 35.4 G/dL AO Workflow SS MCV (RBC) [Entitic vol] 90.8 fL Normal 80.0 - 94.0 fL AO Workflow SS Monocyte, Absolute 0.7 103/mcL Normal 0.2 - 1.0 10^3/mcL AO Workflow SS Monocytes/100 WBC (Bld) 9.0 % Normal 1.7 - 13.0 % AO Workflow SS Neutrophil, Absolute 4.7 103/mcL Normal 2.9 - 6 .2 10^3/mcL AO Workflow SS Neutrophils/100 WBC (Bld) 61.1 % Normal 37.0 - 80.0 % AO Workflow SS Parathyrin.intact [Mass/Vol] 113.3 pg/mL High 18.5 - 88.0 pg/mL AH ADM SS Platelet mean volume (Bld) [Entitic vol] 7.4 fL Normal 7.4 - 10.4 fL AO Workflow SS Platelets (Bld) [#/Vol] 230 103/mcL Normal 130 - 400 10^3/mcL AO Workflow SS Potassium [Moles/Vol] 4.8 mmol/L Normal 3.5 - 5.1 mmol/L AO ADM SS Prostate specific Ag [Mass/Vol] 3.63 ng/mL Normal 0.00 - 4.00 ng/mL AO ADM SS Protein [Mass/Vol] 6.6 G/dL Normal 6.4 - 8.2 G/dL AO ADM SS RBC (Bld) [#/Vol] 4.51 106/mcL Normal 4.04 - 6.1 3 10^6/mcL AO Workflow SS Sodium [Moles/Vol] 138 mmol/L Normal 136 - 145 mmol/L AO ADM SS Urea nitrogen [Mass/Vol] 23 mg/dL High 7 - 18 mg/dL AO ADM SS Urea nitrogen/Creatinine [Mass ratio] 19 ratio Normal 7 - 27 ratio AO ADM SS WBC (Bld) [#/Vol] 7.7 103/mcL Normal 4.6 - 10.8 10^3/mcL AO Workflow SS LABORATORYOrdered By: Tia Masters on 06-29-2023 Cholesterol [Mass/Vol] 166 mg/dL Normal 0 - 2 00 mg/dL AO ADM SS Comment on above: Interpretive Data: C holesterol Reference Interval: Less than 200 Desirable 200-239 Borderline high risk 240 and above High risk Cholesterol in HDL [Mass/Vol] 48 mg/dL Normal 40 - 60 mg/dL AO ADM SS Cholesterol in LDL [Mass/Vol] 91 mg/dL Normal 0 - 130 mg/dL AO ADM SS Triglyceride [Mass/Vol] 133 mg/dL Normal 0 - 150 mg/dL AO ADM SS Comment on above: Interpretive Data: T riglyceride Reference Interval: Less than 150 Normal 150-199 Borderline high risk 200-499 High risk 500 or higher Very high risk LABORATORYOrdered By: LABCOR P CONTRIBUTOR_SYSTEM on 06-29-2023 Renin Activity (LC) Not performed Invalid Interpretation Code AO Sendouts SS Comment on above: Result Comment: Test not performed. No frozen plasma received. Contacted Jaleesa Cui at your facility 06/30/2023 This test was developed and its performance characteristics determined by [facility]. It has not been cleared or approved by the Food and Drug Administration. Performed At: [facility] [id number] Cj Negrete MD Ph:[phone] LIPIDon 06-29-2023 Cholesterol [Mass/Vol] 166 mg/dL Normal 0-200 [facility] ([place]) Comment on above: Result Comment: Chol esterol Reference Interval: Less than 200 Desirable 200-239 Borderline high risk 240 and above High risk Performed By: #### V IDH, LIPID, CBC, [id number], GFR, ANEU, ADIFF, CMP, PSA #### [address] [address] #### PTH #### [address] [address] Cholesterol in HDL [Mass/Vol] 48 mg/dL Normal 40-60 [facility] ([place]) Comment on above: Performed By: #### V IDH, LIPID, CBC, [id number], GFR, ANEU, ADIFF, CMP, PSA #### [place] [address] #### PTH #### [place] [address] Cholesterol in LDL [Mass/Vol] 91 mg/dL Normal 0-130 [facility] ([place]) Comment on above: Performed By: #### V IDH, LIPID, CBC, [id number], GFR, ANEU, ADIFF, CMP, PSA #### [place] [address] #### PTH #### [place] [address] Triglyceride [Mass/Vol] 133 mg/dL Normal 0-150 [facility] ([place]) Comment on above: Result Comment: Trig lyceride Reference Interval: Less than 150 Normal 150-199 Borderline high risk 200-499 High risk 500 or higher Very high risk Performed By: #### V IDH, LIPID, CBC, [id number], GFR, ANEU, ADIFF, CMP, PSA #### [place] [address] #### PTH #### [place] [address] PSAon 06-29-2023 Prostate Specific Antigen 3.63 ng/mL Normal 0.00-4.00 [facility] ([place]) Comment on above: Performed By: #### V IDH, LIPID, CBC, [id number], GFR, ANEU, ADIFF, CMP, PSA #### [place] [address] #### PTH #### [place] [address] PTHon 06-29-2023 PTH, Intact 113.3 pg/mL High 18.5-88.0 [facility] ([place]) Comment on above: Performed By: #### V IDH, LIPID, CBC, [id number], GFR, ANEU, ADIFF, CMP, PSA #### [place] [address] #### PTH #### [place] [address] VIDHon 06-29-2023 Vit. D 25-Hydroxy 38.1 ng/mL Normal [facility] ([place]) Comment on above: Result Comment: Inte rpretive Values Based on Total 25(OH) Vitamin D: Deficient <20 ng/mL Insufficient 20 - <30 ng/mL Sufficient 30-100 ng/mL Performed By: #### V IDH, LIPID, CBC, [id number], GFR, ANEU, ADIFF, CMP, PSA #### [facility] [address] [place], [place] [address] #### PTH #### [address] [address] Basophil percentageOrdered B y: Facundo Beatty on 06-12-2023 Creatinine [Mass/Vol] 1.0 mg/dL 0.70-1.30 [facility] No Panel InformationOrdered By: Facundo Beatty on 06-12-2023 Bedside Estimated GFR (eGFR) > 60.0000 mL/min >60 [facility] Absolute lymphocyte countOrd ered By: Facundo Beatty on 04-27-2023 Lymphocytes Auto (Unsp spec) [#/Vol] 1.61 10*3/uL 0.83-4.51 [facility] Basophil percentageOrdered B y: [facility] Rogerio on 04-27-2023 Basophils/100 WBC (Bld) 0.1 % 0-1 [facility] Bilirubin [Mass/Vol] 0.60 mg/dL 0.20-1.00 [facility] Comment on above: For patients on eltr ombopag therapy, use of [place] TBIL is not recommended. Chloride [Moles/Vol] 107 mmol/L 98-107 [facility] Eosinophils/100 WBC (Bld) 1.3 % 0-5 [facility] Glucose [Mass/Vol] 117 mg/dL 74-106 [facility] Comment on above: Fasting Glucose resu lt from 100 to 125 mg/dL suggests IMPAIRED HOMEOSTASIS per A.D.A. criteria. LDH [Catalytic activity/Vol] 210 U/L 87-241 [facility] Neutrophils (Bld) [#/Vol] 4.5 10*3/uL 2.0-7.7 [facility] Neutrophils/100 WBC (Bld) 65.7 % 47-70 [facility] Potassium [Moles/Vol] 3.7 mmol/L 3.5-5.1 [facility] Protein [Mass/Vol] 6.2 g/dL 6.4-8.2 [facility] Sodium [Moles/Vol] 139 mmol/L 136-145 [facility] WBC (Bld) [#/Vol] 6.8 10*3/uL 4.4-11.0 [facility] Blood erythrocytes count (nu mber/volume)Ordered By: Facundo Beatty on 04-27-2023 RBC (Bld) [#/Vol] 4.05 10*6/uL 4.6-6.2 [facility] Blood hemoglobin measurement (mass/volume)Ordered By: Facundo Beatty on 04-27-2023 Hemoglobin (Bld) [Mass/Vol] 12.5 g/dL 13.0-16.5 [facility] Blood lymphocytes/100 leukoc ytesOrdered By: Facundo Beatty on 04-27-2023 Lymphocytes/100 WBC (Bld) 23.6 % 19-41 [facility] Blood monocytes/100 leukocyt esOrdered By: Facundo Beatty on 04-27-2023 Monocytes/100 WBC (Bld) 8.3 % 0-10 [facility] Blood platelet mean volumeOr dered By: Facundo Beatty on 04-27-2023 Platelet mean volume (Bld) [Entitic vol] 8.7 fL 6.2-12.0 [facility] Determination of erythrocyte mean corpuscular volume (MCV)Ordered By: Facundo Beatty on 04-27-2023 MCV (RBC) [Entitic vol] 90.9 fL 80-94 [facility] Hematocrit Auto (Bld) [Volum e fraction]Ordered By: Facundo Beatty on 04-27-2023 Hematocrit (Bld) [Volume fraction] 36.8 % 40-54 [facility] Laboratory - Chemistry and C hemistry - challengeOrdered By: Facundo Beatty on 04-27-2023 ALP [Catalytic activity/Vol] 89 U/L 45-117 [facility] ALT [Catalytic activity/Vol] 28 U/L 16-61 [facility] CO2 [Moles/Vol] 29.0 mmol/L 21.0-32.0 [facility] Globulin (S) [Mass/Vol] 2.6 g/dL 2.2-4.2 [facility] Urea nitrogen/Creatinine [Mass ratio] 14.6 mg/mg 10-20 [facility] Laboratory - Hematology and Cell countsOrdered By: Facundo Beatty on 04-27-2023 Erythrocyte distribution width (RBC) [Entitic vol] 42.9 fL 35.1-43.9 [facility] Erythrocyte distribution width (RBC) [Ratio] 12.9 % 11.6-14.6 [facility] Immature granulocytes/100 WBC (Bld) 1.000 % 0.0-0.9 [facility] Comment on above: IG% - Immature Granu locytes (promyelocytes, myelocytes and metamyelocytes) > 1% indicates that a LEFT SHIFT is Present. MCH (RBC) [Entitic mass] 30.9 pg 27.0-32.0 [facility] Nucleated RBC/100 WBC (Bld) [Ratio] 0 % 0-5 [facility] MCHC Auto (RBC) [Mass/Vol]Or dered By: Facundo Beatty on 04-27-2023 MCHC (RBC) [Mass/Vol] 34.0 g/dL 32-36 [facility] No Panel InformationOrdered By: Facundo Beatty on 04-27-2023 Estimated Creatinine Clearance Calc 46.62 ml/min [facility] Estimated GFR (MDRD) Amer 65 mL/min >60 [facility] Comment on above: GFR Calc Estimated GFR (MDRD) Non-Af Amer 54 mL/min >60 [facility] Comment on above: Non- GFR Calc Platelets bldOrdered By: Troy Beatty on 04-27-2023 Platelets (Bld) [#/Vol] 196 10*3/uL 150-450 [facility] Serum or plasma albumin sandi urement (mass/volume)Ordered By: Facundo Beatty on 04-27-2023 Albumin [Mass/Vol] 3.6 g/dL 3.2-5.0 [facility] Serum or plasma albumin/glob ulin mass ratioOrdered By: Facundo Beatty on 04-27-2023 Albumin/Globulin [Mass ratio] 1.4 {ratio} 0.9-2.4 [facility] Serum or plasma calcium sandi urement (mass/volume)Ordered By: Facundo Beatty on 04-27-2023 Calcium [Mass/Vol] 9.5 mg/dL 8.5-10.1 [facility] Serum or plasma creatinine m easurement (mass/volume)Ordered By: Facundo Beatty on 04-27-2023 Creatinine [Mass/Vol] 1.37 mg/dL 0.70-1.30 [facility] Comment on above: The validity of the calculated GFR & GFRAA in patients over 70 years has not been determined. Clinical correlation is essential. Serum or plasma urea nitroge n measurement (mass/volume)Ordered By: Facundo Beatty on 04-27-2023 Urea nitrogen [Mass/Vol] 20 mg/dL 7-18 [facility] Thin prep Papanicolaou smear with manual screeningOrdered By: Facundo Beatty on 04-27-2023 Thin prep Papanicolaou smear with manual screening 24 U/L 15-37 [facility] Thin prep Papanicolaou smear with manual screening 3 5-15 [facility] Basophil percentageOrdered B y: Facundo Beatty on 02-20-2023 Creatinine [Mass/Vol] 0.9 mg/dL 0.70-1.30 [facility] No Panel InformationOrdered By: Facundo Beatty on 02-20-2023 Bedside Estimated GFR (eGFR) > 60.0000 mL/min >60 [facility] Absolute lymphocyte countOrd ered By: Facundo Beatty on 01-05-2023 Lymphocytes Auto (Unsp spec) [#/Vol] 1.93 10*3/uL 0.83-4.51 [facility] Basophil percentageOrdered B y: [facility] 01-05-[facility]23 Basophils/100 WBC (Bld) 0.3 % 0-1 [facility] Bilirubin [Mass/Vol] 0.50 mg/dL 0.20-1.00 [facility] Comment on above: For patients on eltr ombopag therapy, use of [place] TBIL is not recommended. Chloride [Moles/Vol] 106 mmol/L 98-107 [facility] Eosinophils/100 WBC (Bld) 3.2 % 0-5 [facility] Glucose [Mass/Vol] 117 mg/dL 74-106 [facility] Comment on above: Fasting Glucose resu lt from 100 to 125 mg/dL suggests IMPAIRED HOMEOSTASIS per A.D.A. criteria. LDH [Catalytic activity/Vol] 206 U/L 87-241 [facility] Neutrophils (Bld) [#/Vol] 3.5 10*3/uL 2.0-7.7 [facility] Neutrophils/100 WBC (Bld) 55.3 % 47-70 [facility] Potassium [Moles/Vol] 3.5 mmol/L 3.5-5.1 [facility] Protein [Mass/Vol] 6.3 g/dL 6.4-8.2 [facility] Sodium [Moles/Vol] 139 mmol/L 136-145 [facility] WBC (Bld) [#/Vol] 6.3 10*3/uL 4.4-11.0 [facility] Blood erythrocytes count (nu mber/volume)Ordered By: Facundo Beatty on 01-05-2023 RBC (Bld) [#/Vol] 4.36 10*6/uL 4.6-6.2 [facility] Blood hemoglobin measurement (mass/volume)Ordered By: Facundo Beatty on 01-05-2023 Hemoglobin (Bld) [Mass/Vol] 13.4 g/dL 13.0-16.5 [facility] Blood lymphocytes/100 leukoc ytesOrdered By: Facundo Beatty on 01-05-2023 Lymphocytes/100 WBC (Bld) 30.9 % 19-41 [facility] Blood monocytes/100 leukocyt esOrdered By: Facundo Beatty on 01-05-2023 Monocytes/100 WBC (Bld) 9.3 % 0-10 [facility] Blood platelet mean volumeOr dered By: Facundo Beatty on 01-05-2023 Platelet mean volume (Bld) [Entitic vol] 8.8 fL 6.2-12.0 [facility] Determination of erythrocyte mean corpuscular volume (MCV)Ordered By: Facundo Beatty on 01-05-2023 MCV (RBC) [Entitic vol] 88.8 fL 80-94 [facility] Hematocrit Auto (Bld) [Volum e fraction]Ordered By: Facundo Beatty on 01-05-2023 Hematocrit (Bld) [Volume fraction] 38.7 % 40-54 [facility] Laboratory - Chemistry and C hemistry - challengeOrdered By: Facundo Beatty on 01-05-2023 ALP [Catalytic activity/Vol] 107 U/L 45-117 [facility] ALT [Catalytic activity/Vol] 32 U/L 16-61 [facility] CO2 [Moles/Vol] 26.0 mmol/L 21.0-32.0 [facility] Globulin (S) [Mass/Vol] 2.9 g/dL 2.2-4.2 [facility] Urea nitrogen/Creatinine [Mass ratio] 21.7 mg/mg 10-20 [facility] - Hematology and Cell countsOrdered By: [facility] Rogerio on 01-05-2023 Erythrocyte distribution width (RBC) [Entitic vol] 40.5 fL 35.1-43.9 [facility] Erythrocyte distribution width (RBC) [Ratio] 12.4 % 11.6-14.6 [facility] Immature granulocytes/100 WBC (Bld) 1.000 % 0.0-0.9 [facility] Comment on above: IG% - Immature Granu locytes (promyelocytes, myelocytes and metamyelocytes) > 1% indicates that a LEFT SHIFT is Present. MCH (RBC) [Entitic mass] 30.7 pg 27.0-32.0 [facility] Nucleated RBC/100 WBC (Bld) [Ratio] 0 % 0-5 [facility] MCHC Auto (RBC) [Mass/Vol]Or dered By: Facundo Beatty on 01-05-2023 MCHC (RBC) [Mass/Vol] 34.6 g/dL 32-36 [facility] No Panel InformationOrdered By: Facundo Beatty on 01-05-2023 Estimated Creatinine Clearance Calc 53.23 ml/min [facility] Estimated GFR (MDRD) Amer 76 mL/min >60 [facility] Comment on above: GFR Calc Estimated GFR (MDRD) Non-Af Amer 62 mL/min >60 [facility] Comment on above: Non- GFR Calc Platelets bldOrdered By: Troy winston Rogerio on 01-05-2023 Platelets (Bld) [#/Vol] 192 10*3/uL 150-450 [facility] Serum or plasma albumin sandi urement (mass/volume)Ordered By: Facundo Beatty on 01-05-2023 Albumin [Mass/Vol] 3.4 g/dL 3.2-5.0 [facility] Serum or plasma albumin/glob ulin mass ratioOrdered By: Facundo Beatty on 01-05-2023 Albumin/Globulin [Mass ratio] 1.2 {ratio} 0.9-2.4 [facility] Serum or plasma calcium sandi urement (mass/volume)Ordered By: Facundo Beatty on 01-05-2023 Calcium [Mass/Vol] 9.6 mg/dL 8.5-10.1 [facility] Serum or plasma creatinine m easurement (mass/volume)Ordered By: Facundo Beatty on 01-05-2023 Creatinine [Mass/Vol] 1.20 mg/dL 0.70-1.30 [facility] Comment on above: The validity of the calculated GFR & GFRAA in patients over 70 years has not been determined. Clinical correlation is essential. Serum or plasma urea nitroge n measurement (mass/volume)Ordered By: Facundo Beatty on 01-05-2023 Urea nitrogen [Mass/Vol] 26 mg/dL 02-07 [facility] Thin prep Papanicolaou smear with manual screeningOrdered By: Facundo Beatty on 01-05-2023 Thin prep Papanicolaou smear with manual screening 25 U/L [facility] Thin prep Papanicolaou smear with manual screening 7 12-05 [facility] LABORATORYOrdered By: SYSTEM SYSTEM on 12-22-2022 25-hydroxyvitamin D3 [Mass/Vol] 35.8 ng/mL Invalid Interpretation Code AO ADM SS Albumin BCP dye [Mass/Vol] 4.0 G/dL Invalid Interpretation Code 3.4 - 4.8 G/dL AO ADM SS Albumin/Globulin [Mass ratio] 1.7 {ratio} Invalid Interpretation Code 1.1 - 2.5 ratio AO ADM SS ALP [Catalytic activity/Vol] 88 U/L Invalid Interpretation Code 40 - 135 U/L AO ADM SS ALT With P-5'-P [Catalytic activity/Vol] 39 U/L Invalid Interpretation Code 16 - 63 U/L AO ADM SS AST With P-5'-P [Catalytic activity/Vol] 28 U/L Invalid Interpretation Code 10 - 40 U/L AO ADM SS Bilirubin [Mass/Vol] 0.6 mg/dL Invalid Interpretation Code 0.2 - 1.0 mg/dL AO ADM SS Calcium [Mass/Vol] 9.7 mg/dL Invalid Interpretation Code 8.4 - 10.2 mg/dL AO ADM SS Chloride [Moles/Vol] 104 mmol/L Invalid Interpretation Code 98 - 107 mmol/L AO ADM SS CO2 [Moles/Vol] 28 mmol/L Invalid Interpretation Code 23 - 31 mmol/L AO ADM SS Creatinine [Mass/Vol] 1.37 mg/dL Invalid Interpretation Code 0.70 - 1.30 mg/dL AO ADM SS Electrolyte Balance 7.0 mEq/L Invalid Interpretation Code 4.0 - 15.0 mEq/L AO ADM SS GFR/1.73 sq M.predicted among blacks MDRD (S/P/Bld) [Vol rate/Area] 61 ml/min/1.73sqm Invalid Interpretation Code AO Chemistry S GFR/1.73 sq M.predicted among non-blacks MDRD (S/P/Bld) [Vol rate/Area] 50 ml/min/1.73sqm Invalid Interpretation Code AO Chemistry S Globulin 2.4 G/dL Invalid Interpretation Code AO ADM SS Glucose [Mass/Vol] 98 mg/dL Invalid Interpretation Code 83 - 110 mg/dL AO ADM SS Parathyrin.intact [Mass/Vol] 71.7 pg/mL Invalid Interpretation Code 18.5 - 88.0 pg/mL AH ADM SS Potassium [Moles/Vol] 4.4 mmol/L Invalid Interpretation Code 3.5 - 5.1 mmol/L AO ADM SS Protein [Mass/Vol] 6.4 G/dL Invalid Interpretation Code 6.4 - 8.2 G/dL AO ADM SS Sodium [Moles/Vol] 139 mmol/L Invalid Interpretation Code 136 - 145 mmol/L AO ADM SS TSH Qn 0.59 m[IU]/L Invalid Interpretation Code 0.36 - 3.74 mcIU/mL AO ADM SS Urea nitrogen [Mass/Vol] 32 mg/dL Invalid Interpretation Code 7 - 18 mg/dL AO ADM SS Urea nitrogen/Creatinine [Mass ratio] 23 ratio Invalid Interpretation Code 7 - 27 ratio AO ADM SS LABORATORYOrdered By: Jolynn Andrade on 12-22-2022 Albumin DL <= 20 mg/L (U) [Mass/Vol] 997 mcg/dL Invalid Interpretation Code AO ADM SS Albumin/Creatinine DL <= 20 mg/L (U) [Mass ratio] 23 mcg/mg Invalid Interpretation Code 0 - 30 mcg/mg AO ADM SS Creatinine (U) [Mass/Vol] 44.0 mg/dL Invalid Interpretation Code 39.0 - 259.0 mg/dL AO ADM SS LABORATORYOrdered By: Meche Dueñas on 12-22-2022 Basophil, Absolute 0.0 103/mcL Invalid Interpretation Code 0.0 - 0.2 10^3/mcL AO Workflow SS Basophils/100 WBC (Bld) 0.4 % Invalid Interpretation Code 0.0 - 2.5 % AO Workflow SS Eosinophil, Absolute 0.1 103/mcL Invalid Interpretation Code 0.0 - 0.4 10^3/mcL AO Workflow SS Eosinophils/100 WBC (Bld) 2.4 % Invalid Interpretation Code 0.0 - 7.0 % AO Workflow SS Erythrocyte distribution width (RBC) [Ratio] 13.3 % Invalid Interpretation Code 11.5 - 14.5 % AO Workflow SS Hematocrit (Bld) [Volume fraction] 38.9 % Invalid Interpretation Code 42.0 - 52.0 % AO Workflow SS Hemoglobin (Bld) [Mass/Vol] 13.3 G/dL Invalid Interpretation Code 14.0 - 18.0 G/dL AO Workflow SS Lymphocyte, Absolute 1.9 103/mcL Invalid Interpretation Code 0.8 - 3.9 10^3/mcL AO Workflow SS Lymphocytes/100 WBC (Bld) 31.9 % Invalid Interpretation Code 10.0 - 50.0 % AO Workflow SS MCH (RBC) [Entitic mass] 30.1 pg Invalid Interpretation Code 27.0 - 31.2 pg AO Workflow SS MCHC 34.1 G/dL Invalid Interpretation Code 31.8 - 35.4 G/dL AO Workflow SS MCV (RBC) [Entitic vol] 88.2 fL Invalid Interpretation Code 80.0 - 94.0 fL AO Workflow SS Monocyte, Absolute 0.6 103/mcL Invalid Interpretation Code 0.2 - 1.0 10^3/mcL AO Workflow SS Monocytes/100 WBC (Bld) 9.9 % Invalid Interpretation Code 1.7 - 13.0 % AO Workflow SS Neutrophil, Absolute 3.2 103/mcL Invalid Interpretation Code 2.9 - 6.2 10^3/mcL AO Workflow SS Neutrophils/100 WBC (Bld) 55.4 % Invalid Interpretation Code 37.0 - 80.0 % AO Workflow SS Platelet Estimate Slt Decreased (12/22/22 9:00 AM) Invalid Interpretation Code AO Hematology S Platelet mean volume (Bld) [Entitic vol] 7.2 fL Invalid Interpretation Code 7.4 - 10.4 fL AO Workflow SS Platelets (Bld) [#/Vol] 226 103/mcL Invalid Interpretation Code 130 - 400 10^3/mcL AO Workflow SS RBC (Bld) [#/Vol] 4.41 106/mcL Invalid Interpretation Code 4.04 - 6.13 10^6/mcL AO Workflow SS RBC morphology finding Nom (Bld) Normal (12/22/22 9:00 AM) Invalid Interpretation Code AO Hematology S WBC (Bld) [#/Vol] 5.8 103/mcL Invalid Interpretation Code 4.6 - 10.8 10^3/mcL AO Workflow SS LABORATORYOrdered By: Sejal Mustafa on 12-22-2022 Cholesterol [Mass/Vol] 190 mg/dL Invalid Interpretation Code 0 - 200 mg/dL AO ADM SS Cholesterol in HDL [Mass/Vol] 44 mg/dL Invalid Interpretation Code 40 - 60 mg/dL AO ADM SS Cholesterol in LDL [Mass/Vol] 126 mg/dL Invalid Interpretation Code 0 - 130 mg/dL AO ADM SS Triglyceride [Mass/Vol] 102 mg/dL Invalid Interpretation Code 0 - 150 mg/dL AO ADM SS LABORATORYOrdered By: BRENDA_Sarah Beth JOHN CONTRIBUTOR_SYSTEM on 12-22-2022 Direct Renin 16.7 pg/mL Invalid Interpretation Code 3.6-81.6pg/ mL AO Sendouts SS Comment on above: Result Comment: A ra sunshine of aldosterone in ng/dL to direct renin in pg/mL greater than or equal to 3.8 is a positive screening test result for primary aldosteronism, when aldosterone is greater than or equal to 15 ng/dL. The reference interval for direct renin is based on an upright position. The supine reference intervals are: Age <41 years: 3.2-33.2 pg/mL Age >=41 years: 2.5-45.1 pg/mL Performed By: [facility] [employer] [address] [place] [address] Sharepoint Designer Developer: Yfn Connell III, M.D. CLIA#: [id number] Patient Upright or Supine Unknown Invalid Interpretation Code AO Sendouts SS Comment on above: Result Comment: Perf ormed By: [facility] [employer] [address] [place] [id number] Sharepoint Designer Developer: Yfn Connell III, M.D. CLIA#: [id number] Serum or plasma uric acid me asurement (mass/volume)Ordered By: Facundo Beatty on 09-05-2022 Urate [Mass/Vol] 8.7 mg/dL High 3.5-7.2 [facility] Comment on above: The drugs N-Acetylcy steine and Metamizole may falsely depress this assay. Absolute lymphocyte countOrd ered By: Dr. Beatty on 08-08-2022 Lymphocytes Auto (Unsp spec) [#/Vol] 0.93 10*3/uL 0.83-4.51 [facility] Basophil percentageOrdered B y: Dr. Beatty on 08-08-2022 Basophils/100 WBC (Bld) 0.2 % 0-1 [facility] Bilirubin [Mass/Vol] 0.30 mg/dL 0.20-1.00 [facility] Comment on above: For patients on eltr ombopag therapy, use of [place] TBIL is not recommended. Chloride [Moles/Vol] 105 mmol/L 98-107 [facility] Eosinophils/100 WBC (Bld) 2.8 % 0-5 [facility] Glucose [Mass/Vol] 122 mg/dL 74-106 [facility] Comment on above: Fasting Glucose resu lt from 100 to 125 mg/dL suggests IMPAIRED HOMEOSTASIS per A.D.A. criteria. LDH [Catalytic activity/Vol] 142 U/L 87-241 [facility] Neutrophils (Bld) [#/Vol] 4.2 10*3/uL 2.0-7.7 [facility] Neutrophils/100 WBC (Bld) 70.4 % 47-70 [facility] Potassium [Moles/Vol] 3.8 mmol/L 3.5-5.1 [facility] Protein [Mass/Vol] 6.2 g/dL 6.4-8.2 [facility] Sodium [Moles/Vol] 140 mmol/L 136-145 [facility] WBC (Bld) [#/Vol] 6.0 10*3/uL 4.4-11.0 [facility] Blood erythrocytes count (nu mber/volume)Ordered By: Dr. Beatty on 08-08-2022 RBC (Bld) [#/Vol] 4.16 10*6/uL 4.6-6.2 [facility] Blood hemoglobin measurement (mass/volume)Ordered By: Dr. Beatty on 08-08-2022 Hemoglobin (Bld) [Mass/Vol] 12.7 g/dL 13.0-16.5 [facility] Blood lymphocytes/100 leukoc ytesOrdered By: Dr. Beatty on 08-08-2022 Lymphocytes/100 WBC (Bld) 15.6 % 19-41 [facility] Blood monocytes/100 leukocyt esOrdered By: Dr. Beatty on 08-08-2022 Monocytes/100 WBC (Bld) 10.7 % 0-10 [facility] Blood platelet mean volumeOr dered By: Dr. Beatty on 08-08-2022 Platelet mean volume (Bld) [Entitic vol] 8.8 fL 6.2-12.0 [facility] Determination of erythrocyte mean corpuscular volume (MCV)Ordered By: Dr. Beatty on 08-08-2022 MCV (RBC) [Entitic vol] 90.6 fL 80-94 [facility] Hematocrit Auto (Bld) [Volum e fraction]Ordered By: Dr. Beatty on 08-08-2022 Hematocrit (Bld) [Volume fraction] 37.7 % 40-54 [facility] Laboratory - Chemistry and C hemistry - challengeOrdered By: Dr. Beatty on 08-08-2022 ALP [Catalytic activity/Vol] 101 U/L 45-117 [facility] ALT [Catalytic activity/Vol] 43 U/L 16-61 [facility] CO2 [Moles/Vol] 29.0 mmol/L 21.0-32.0 [facility] Globulin (S) [Mass/Vol] 2.7 g/dL 2.2-4.2 [facility] Urea nitrogen/Creatinine [Mass ratio] 17.5 mg/mg 10-20 [facility] Laboratory - Hematology and Cell countsOrdered By: Dr. Beatty on 08-08-2022 Erythrocyte distribution width (RBC) [Entitic vol] 42.3 fL 35.1-43.9 [facility] Erythrocyte distribution width (RBC) [Ratio] 12.9 % 11.6-14.6 [facility] Immature granulocytes/100 WBC (Bld) 0.300 % 0.0-0.9 [facility] Comment on above: IG% - Immature Granu locytes (promyelocytes, myelocytes and metamyelocytes) > 1% indicates that a LEFT SHIFT is Present. MCH (RBC) [Entitic mass] 30.5 pg 27.0-32.0 [facility] Nucleated RBC/100 WBC (Bld) [Ratio] 0 % 0-5 [facility] MCHC Auto (RBC) [Mass/Vol]Or dered By: Dr. Beatty on 08-08-2022 MCHC (RBC) [Mass/Vol] 33.7 g/dL 32-36 [facility] No Panel InformationOrdered By: Dr. Beatty on 08-08-2022 Estimated Creatinine Clearance Calc 56.92 ml/min [facility] Estimated GFR (MDRD) Amer 80 mL/min >60 [facility] Comment on above: GFR Calc Estimated GFR (MDRD) Non-Af Amer 66 mL/min >60 [facility] Comment on above: Non- GFR Calc Platelets bldOrdered By: Dr. Beatty on 08-08-2022 Platelets (Bld) [#/Vol] 218 10*3/uL 150-450 [facility] Serum or plasma albumin sandi urement (mass/volume)Ordered By: Dr. Beatty on 08-08-2022 Albumin [Mass/Vol] 3.5 g/dL 3.2-5.0 [facility] Serum or plasma albumin/glob ulin mass ratioOrdered By: Dr. Beatty on 08-08-2022 Albumin/Globulin [Mass ratio] 1.3 {ratio} 0.9-2.4 [facility] Serum or plasma calcium sandi urement (mass/volume)Ordered By: Dr. Beatty on 08-08-2022 Calcium [Mass/Vol] 9.3 mg/dL 8.5-10.1 [facility] Serum or plasma creatinine m easurement (mass/volume)Ordered By: Dr. Beatty on 08-08-2022 Creatinine [Mass/Vol] 1.14 mg/dL 0.70-1.30 [facility] Comment on above: The validity of the calculated GFR & GFRAA in patients over 70 years has not been determined. Clinical correlation is essential. Serum or plasma urea nitroge n measurement (mass/volume)Ordered By: Dr. Beatty on 08-08-2022 Urea nitrogen [Mass/Vol] 20 mg/dL 7-18 [facility] Serum or plasma uric acid me asurement (mass/volume)Ordered By: Dr. Beatty on 08-08-2022 Urate [Mass/Vol] 8.1 mg/dL 3.5-7.2 [facility] Comment on above: The drugs N-Acetylcy steine and Metamizole may falsely depress this assay. Thin prep Papanicolaou smear with manual screeningOrdered By: Dr. Beatty on 08-08-2022 Thin prep Papanicolaou smear with manual screening 27 U/L 15-37 [facility] Thin prep Papanicolaou smear with manual screening 6 5-15 [facility] Absolute lymphocyte counton 07-11-2022 Lymphocytes Auto (Unsp spec) [#/Vol] 1.05 10*3/uL 0.83-4.51 [facility] Work Phone: Basophil percentageon 2021 Basophils/100 WBC (Bld) 0.3 % 0-1 [facility] Work Phone: Bilirubin [Mass/Vol] 0.30 mg/dL 0.20-1.00 [facility] Work Phone: Comment on above: For patients on eltr ombopag therapy, use of [place] TBIL is not recommended. Chloride [Moles/Vol] 108 mmol/L 98-107 [facility] Work Phone: Eosinophils/100 WBC (Bld) 3.0 % 0-5 [facility] Work Phone: Glucose [Mass/Vol] 124 mg/dL 74-106 [facility] Work Phone: Comment on above: Fasting Glucose resu lt from 100 to 125 mg/dL suggests IMPAIRED HOMEOSTASIS per A.D.A. criteria. Neutrophils (Bld) [#/Vol] 4.5 10*3/uL 2.0-7.7 [facility] Work Phone: Neutrophils/100 WBC (Bld) 70.3 % 47-70 [facility] Work Phone: Potassium [Moles/Vol] 3.7 mmol/L 3.5-5.1 [facility] Work Phone: Comment on above: Slight Hemolysis, Re sult may be falsely increased. Protein [Mass/Vol] 6.2 g/dL 6.4-8.2 [facility] Work Phone: Sodium [Moles/Vol] 141 mmol/L 136-145 [facility] Work Phone: WBC (Bld) [#/Vol] 6.3 10*3/uL 4.4-11.0 [facility] Work Phone: Blood erythrocytes count (nu mber/volume)on 07-11-2022 RBC (Bld) [#/Vol] 4.18 10*6/uL 4.6-6.2 [facility] Work Phone: Blood hemoglobin measurement (mass/volume)on 07-11-2022 Hemoglobin (Bld) [Mass/Vol] 12.7 g/dL 13.0-16.5 [facility] Work Phone: Blood lymphocytes/100 leukoc yteson 07-11-2022 Lymphocytes/100 WBC (Bld) 16.6 % 19-41 [facility] Work Phone: Blood monocytes/100 leukocyt eson 07-11-2022 Monocytes/100 WBC (Bld) 9.5 % 0-10 [facility] Work Phone: Blood platelet mean volumeon 07-11-2022 Platelet mean volume (Bld) [Entitic vol] 8.6 fL 6.2-12.0 [facility] Work Phone: Determination of erythrocyte mean corpuscular volume (MCV)on 07-11-2022 MCV (RBC) [Entitic vol] 92.1 fL 80-94 [facility] Work Phone: Hematocrit Auto (Bld) [Volum e fraction]on 07-11-2022 Hematocrit (Bld) [Volume fraction] 38.5 % 40-54 [facility] Work Phone: Laboratory - Chemistry and C hemistry - challengeon 07-11-2022 ALP [Catalytic activity/Vol] 101 U/L 45-117 [facility] Work Phone: ALT [Catalytic activity/Vol] 29 U/L 16-61 [facility] Work Phone: CO2 [Moles/Vol] 29.0 mmol/L 21.0-32.0 [facility] Work Phone: Globulin (S) [Mass/Vol] 2.9 g/dL 2.2-4.2 [facility] Work Phone: Urea nitrogen/Creatinine [Mass ratio] 13.3 mg/mg 10-20 [facility] Work Phone: Laboratory - Hematology and Cell countson 07-11-2022 Erythrocyte distribution width (RBC) [Entitic vol] 45.1 fL 35.1-43.9 [facility] Work Phone: Erythrocyte distribution width (RBC) [Ratio] 13.3 % 11.6-14.6 [facility] Work Phone: Immature granulocytes/100 WBC (Bld) 0.300 % 0.0-0.9 [facility] Work Phone: Comment on above: IG% - Immature Granu locytes (promyelocytes, myelocytes and metamyelocytes) > 1% indicates that a LEFT SHIFT is Present. MCH (RBC) [Entitic mass] 30.4 pg 27.0-32.0 [facility] Work Phone: Nucleated RBC/100 WBC (Bld) [Ratio] 0 % 0-5 [facility] Work Phone: [phone] MCHC Auto (RBC) [Mass/Vol]on 07-11-2022 MCHC (RBC) [Mass/Vol] 33.0 g/dL 32-36 [facility] Work Phone: No Panel Informationon 07-11 Estimated Creatinine Clearance Calc 57.42 ml/min [facility] Work Phone: Estimated GFR (MDRD) Amer 81 mL/min >60 [facility] Work Phone: Comment on above: GFR Calc Estimated GFR (MDRD) Non-Af Amer 67 mL/min >60 [facility] Work Phone: [phone] Comment on above: Non- GFR Calc Platelets bldon 07-11-2022 Platelets (Bld) [#/Vol] 296 10*3/uL 150-450 [facility] Work Phone: [phone] Serum or plasma albumin sandi urement (mass/volume)on 07-11-2022 Albumin [Mass/Vol] 3.3 g/dL 3.2-5.0 [facility] Work Phone: [phone] Serum or plasma albumin/glob ulin mass ratioon 07-11-2022 Albumin/Globulin [Mass ratio] 1.1 {ratio} 0.9-2.4 [facility] Work Phone: [phone] Serum or plasma calcium sandi urement (mass/volume)on 07-11-2022 Calcium [Mass/Vol] 9.0 mg/dL 8.5-10.1 [facility] Work Phone: [phone] Serum or plasma creatinine m easurement (mass/volume)on 07-11-2022 Creatinine [Mass/Vol] 1.13 mg/dL 0.70-1.30 [facility] Work Phone: Comment on above: The validity of the calculated GFR & GFRAA in patients over 70 years has not been determined. Clinical correlation is essential. Serum or plasma urea nitroge n measurement (mass/volume)on 07-11-2022 Urea nitrogen [Mass/Vol] 15 mg/dL 7-18 [facility] Work Phone: Serum or plasma uric acid me asurement (mass/volume)on 07-11-2022 Urate [Mass/Vol] 8.4 mg/dL 3.5-7.2 [facility] Work Phone: Comment on above: The drugs N-Acetylcy steine and Metamizole may falsely depress this assay. Thin prep Papanicolaou smear with manual screeningon 07-11-2022 Thin prep Papanicolaou smear with manual screening 21 U/L 15-37 [facility] Work Phone: Comment on above: Slight Hemolysis, Re sult may be falsely increased. Thin prep Papanicolaou smear with manual screening 4 5-15 [facility] Work Phone: Thin prep Papanicolaou smear with manual screening 189 U/L 87-241 [facility] Work Phone: Comment on above: Slight Hemolysis, Re sult may be falsely increased. HBV core Ab Ql (S)Ordered By : Facundo Beatty on 03-24-2022 Hepatitis B Core Total Antibody Negative Negative [facility] HBV surface Ag IA QlOrdered By: Facundo Beatty on 03-24-2022 Hepatitis B Surface Antigen Negative Negative [facility] No Panel InformationOrdered By: Dr. Beatty on 03-24-2022 Hepatitis B Surface Antibody Non-Reactive . [facility] Comment on above: Non Reactive: Incons istent with immunity, less than 10 mIU/mL Reactive: Consistent with immunity, greater than 9.9 mIU/mL Hepatitis C Antibody <0.1 s/co ratio 0.0-0.9 [facility] Hepatitis C Antibody Comment Comment . [facility] Comment on above: NegativeNot infected with HCV, unless recent infection issuspected or other evidence exists to indicate HCVinfection.Performed at: [facility] [id number] [place], [place] [id number] Director: Patel Crowder PhD, Phone: [phone] Prostate Specific Antigen Screen 6.02 ng/mL High 0.00-4.00 [facility] Comment on above: This test was perfor med using the TPSA assay method for the[employer] Medical chemistry system. Values obtained with differentassay methods cannot be used interchangably.When changing PSA assays in the course of monitoring apatient, additional sequential testing should be carriedout to confirm baseline values. Serum hepatitis B virus core antibody detectionOrdered By: Dr. Beatty on 03-24-2022 HBV core Ab Ql (S) Negative Negative [facility] Serum or plasma hepatitis B virus surface antigen detection by immunoassayOrdered By: Dr. Beatty on 03-24-2022 HBV surface Ag IA Ql Negative Negative [facility] LABORATORYOrdered By: Franc Uribe on 06-25-2021 Albumin BCP dye [Mass/Vol] 4.0 G/dL Invalid Interpretation Code 3.4 - 4.8 G/dL AO ADM SS Albumin/Globulin [Mass ratio] 1.5 {ratio} Invalid Interpretation Code 1.1 - 2.5 ratio AO ADM SS ALP [Catalytic activity/Vol] 103 U/L Invalid Interpretation Code 40 - 135 U/L AO ADM SS ALT With P-5'-P [Catalytic activity/Vol] 20 U/L Invalid Interpretation Code 16 - 63 U/L AO ADM SS AST With P-5'-P [Catalytic activity/Vol] 18 U/L Invalid Interpretation Code 10 - 40 U/L AO ADM SS Bilirubin [Mass/Vol] 0.6 mg/dL Invalid Interpretation Code 0.2 - 1.0 mg/dL AO ADM SS Calcium [Mass/Vol] 9.9 mg/dL Invalid Interpretation Code 8.4 - 10.2 mg/dL AO ADM SS Chloride [Moles/Vol] 107 mmol/L Invalid Interpretation Code 98 - 107 mmol/L AO ADM SS Cholesterol [Mass/Vol] 268 mg/dL Invalid Interpretation Code 0 - 200 mg/dL AO ADM SS Cholesterol in HDL [Mass/Vol] 45 mg/dL Invalid Interpretation Code 40 - 60 mg/dL AO ADM SS Cholesterol in LDL [Mass/Vol] 198 mg/dL Invalid Interpretation Code 0 - 130 mg/dL AO ADM SS CO2 [Moles/Vol] 30 mmol/L Invalid Interpretation Code 23 - 31 mmol/L AO ADM SS Creatinine [Mass/Vol] 1.15 mg/dL Invalid Interpretation Code 0.70 - 1.30 mg/dL AO ADM SS Electrolyte Balance 6.0 mEq/L Invalid Interpretation Code AO ADM SS Globulin 2.7 G/dL Invalid Interpretation Code AO ADM SS Glucose [Mass/Vol] 104 mg/dL Invalid Interpretation Code 83 - 110 mg/dL AO ADM SS Potassium [Moles/Vol] 5.7 mmol/L Invalid Interpretation Code 3.5 - 5.1 mmol/L AO ADM SS Protein [Mass/Vol] 6.7 G/dL Invalid Interpretation Code 6.4 - 8.2 G/dL AO ADM SS Sodium [Moles/Vol] 143 mmol/L Invalid Interpretation Code 136 - 145 mmol/L AO ADM SS Triglyceride [Mass/Vol] 124 mg/dL Invalid Interpretation Code 0 - 150 mg/dL AO ADM SS Urea nitrogen [Mass/Vol] 14 mg/dL Invalid Interpretation Code 7 - 18 mg/dL AO ADM SS Urea nitrogen/Creatinine [Mass ratio] 12 ratio Invalid Interpretation Code 7 - 27 ratio AO ADM SS LABORATORYOrdered By: Sheridan Maldonado on 06-25-2021 Basophil, Absolute 0.00 103/mcL Invalid Interpretation Code 0.00 - 0.19 10^3/mcL AO Auto Heme SS Basophils/100 WBC (Bld) 0.4 % Invalid Interpretation Code 0.0 - 2.5 % AO Auto Heme SS Eosinophil, Absolute 0.10 103/mcL Invalid Interpretation Code 0.00 - 0.40 10^3/mcL AO Auto Heme SS Eosinophils/100 WBC (Bld) 1.3 % Invalid Interpretation Code 0.0 - 7.0 % AO Auto Heme SS Erythrocyte distribution width (RBC) [Ratio] 13.5 % Invalid Interpretation Code 11.5 - 14.5 % AO Auto Heme SS Hematocrit (Bld) [Volume fraction] 44.6 % Invalid Interpretation Code 42.0 - 52.0 % AO Auto Heme SS Hemoglobin (Bld) [Mass/Vol] 14.9 G/dL Invalid Interpretation Code 14.0 - 18.0 G/dL AO Auto Heme SS Lymphocyte, Absolute 4.20 103/mcL Invalid Interpretation Code 0.77 - 3.85 10^3/mcL AO Auto Heme SS Lymphocytes/100 WBC (Bld) 40.5 % Invalid Interpretation Code 10.0 - 50.0 % AO Auto Heme SS MCH (RBC) [Entitic mass] 30.0 pg Invalid Interpretation Code 27.0 - 31.2 pg AO Auto Heme SS MCHC (RBC) [Mass/Vol] 33.3 G/dL Invalid Interpretation Code 31.8 - 35.4 G/dL AO Auto Heme SS MCV (RBC) [Entitic vol] 90.0 fL Invalid Interpretation Code 80.0 - 94.0 fL AO Auto Heme SS Monocyte, Absolute 0.60 103/mcL Invalid Interpretation Code 0.15 - 1.00 10^3/mcL AO Auto Heme SS Monocytes/100 WBC (Bld) 6.0 % Invalid Interpretation Code 1.7 - 13.0 % AO Auto Heme SS Neutrophil, Absolute 5.40 103/mcL Invalid Interpretation Code 2.85 - 6.16 10^3/mcL AO Auto Heme SS Neutrophils/100 WBC (Bld) 51.8 % Invalid Interpretation Code 37.0 - 80.0 % AO Auto Heme SS Platelet mean volume (Bld) [Entitic vol] 7.7 fL Invalid Interpretation Code 7.4 - 10.4 fL AO Auto Heme SS Platelets (Bld) [#/Vol] 315 103/mcL Invalid Interpretation Code 130 - 400 10^3/mcL AO Auto Heme SS RBC (Bld) [#/Vol] 4.96 106/mcL Invalid Interpretation Code 4.04 - 6.13 10^6/mcL AO Auto Heme SS WBC (Bld) [#/Vol] 10.40 103/mcL Invalid Interpretation Code 4.60 - 10.80 10^3/mcL AO Auto Heme SS LABORATORYOrdered By: SYSTEM SYSTEM on 06-25-2021 GFR 75 ml/min/1.73sqm Invalid Interpretation Code AO Chemistry S GFR Non- 62 ml/min/1.73sqm Invalid Interpretation Code AO Chemistry S Vital Signs Date Time Vital Sign Value Performing Clinician Dalila abad 01-16-2025 14:53-0400 Body height 177.8 cm Moy MUNOZ Work Phone: [facility] 01-16-2025 14:53-0400 Body mass index (BMI) [Ratio] 28.8 kg/m2 Moy MUNOZ Work Phone: [facility] 01-16-2025 14:53-0400 Body temperature 98.4 [degF] Moy Kennedy RECEIVING COORDINATOR-C Work Phone: [facility] 01-16-2025 14:53-0400 Body weight 90.94 kg Moy Kennedy RECEIVING COORDINATOR-C Work Phone: [facility] 01-16-2025 14:53-0400 Diastolic blood pressure 82 mm[Hg] Moy Kennedy RECEIVING COORDINATOR-C Work Phone: [facility] 01-16-2025 14:53-0400 Heart rate 55 /min Moy Kennedy RECEIVING COORDINATOR-C Work Phone: [facility] 01-16-2025 14:53-0400 Respiratory rate 18 /min Moy Kennedy RECEIVING COORDINATOR-C Work Phone: [facility] 01-16-2025 14:53-0400 SaO2% (BldA) [Mass fraction] 94 % Moy Kennedy RECEIVING COORDINATOR-C Work Phone: [facility] 01-16-2025 14:53-0400 Systolic blood pressure 164 mm[Hg] Moy Kennedy RECEIVING COORDINATOR-C Work Phone: [facility] 10-17-2024 14:09-0400 Body mass index (BMI) [Ratio] 29.8 kg/m2 Moy Kennedy RECEIVING COORDINATOR-C Work Phone: [facility] 10-17-2024 14:09-0400 Body temperature 97.8 [degF] Moy Kennedy RECEIVING COORDINATOR-C Work Phone: [facility] 10-17-2024 14:09-0400 Body weight 94.34 kg Moy Damonpkins RECEIVING COORDINATOR-C Work Phone: [facility] 10-17-2024 14:09-0400 Diastolic blood pressure 79 mm[Hg] Moy Brent RECEIVING COORDINATOR-C Work Phone: [facility] 10-17-2024 14:09-0400 Heart rate 75 /min Moy Kennedy RECEIVING COORDINATOR-C Work Phone: [facility] 10-17-2024 14:09-0400 Respiratory rate 16 /min Moy Kennedy RECEIVING COORDINATOR-C Work Phone: [facility] 10-17-2024 14:09-0400 SaO2% (BldA) [Mass fraction] 93 % Moy Kennedy RECEIVING COORDINATOR-C Work Phone: [facility] 10-17-2024 14:09-0400 Systolic blood pressure 132 mm[Hg] Moy Damonpkins RECEIVING COORDINATOR-C Work Phone: [facility] 07-18-2024 11:34-0500 Body height 177.8 cm Moy Kennedy RECEIVING COORDINATOR-C Work Phone: [facility] 07-18-2024 11:29-0500 Body mass index (BMI) [Ratio] 30.6 kg/m2 Moy Kennedy RECEIVING COORDINATOR-C Work Phone: [facility] 07-18-2024 11:29-0500 Body temperature 98 [degF] Moy Kennedy RECEIVING COORDINATOR-C Work Phone: [facility] 07-18-2024 11:29-0500 Body weight 96.7 kg Moy Kennedy RECEIVING COORDINATOR-C Work Phone: [facility] 07-18-2024 11:29-0500 Diastolic blood pressure 80 mm[Hg] Moy Damonpkins RECEIVING COORDINATOR-C Work Phone: [facility] 07-18-2024 11:29-0500 Heart rate 65 /min Moy Damonpkins RECEIVING COORDINATOR-C Work Phone: [facility] 07-18-2024 11:29-0500 Respiratory rate 18 /min Moy Damonpkins RECEIVING COORDINATOR-C Work Phone: [facility] 07-18-2024 11:29-0500 SaO2% (BldA) [Mass fraction] 97 % Moy Brent RECEIVING COORDINATOR-C Work Phone: [facility] 07-18-2024 11:29-0500 Systolic blood pressure 133 mm[Hg] Moy Damonpkins RECEIVING COORDINATOR-C Work Phone: [facility] 05-23-2024 14:38-0400 Body temperature 97.1 [degF] Moy Damonpkins RECEIVING COORDINATOR-C Work Phone: [facility] 05-23-2024 14:38-0400 Diastolic blood pressure 71 mm[Hg] Moy Brent RECEIVING COORDINATOR-C Work Phone: [facility] 05-23-2024 14:38-0400 Heart rate 56 /min Moy Brent RECEIVING COORDINATOR-C Work Phone: [facility] 05-23-2024 14:38-0400 Respiratory rate 16 /min Moy Brent RECEIVING COORDINATOR-C Work Phone: [facility] 05-23-2024 14:38-0400 SaO2% (BldA) [Mass fraction] 92 % Moy Damonpkins RECEIVING COORDINATOR-C Work Phone: [facility] 05-23-2024 14:38-0400 Systolic blood pressure 112 mm[Hg] Moy Damonpkins RECEIVING COORDINATOR-C Work Phone: [facility] 04-27-2023 11:49-0400 Body height 177.8 cm RECEIVING COORDINATOR-C Moy Brent RECEIVING COORDINATOR Work Phone: [facility] 04-27-2023 11:49-0400 Body mass index (BMI) [Ratio] 28.7 kg/m2 RECEIVING COORDINATOR-C Moy Goochland RECEIVING COORDINATOR Work Phone: [facility] 04-27-2023 11:49-0400 Body temperature 98.7 [degF] RECEIVING COORDINATOR-C Moy Brent RECEIVING COORDINATOR Work Phone: [facility] 04-27-2023 11:49-0400 Body weight 90.77 kg RECEIVING COORDINATOR-C Moy Kennedy RECEIVING COORDINATOR Work Phone: [facility] 04-27-2023 11:49-0400 Diastolic blood pressure 71 mm[Hg] RECEIVING COORDINATOR-C Moy Kennedy RECEIVING COORDINATOR Work Phone: [facility] 04-27-2023 11:49-0400 Heart rate 59 /min RECEIVING COORDINATOR-C Moy Goochland RECEIVING COORDINATOR Work Phone: [facility] 04-27-2023 11:49-0400 Respiratory rate 16 /min RECEIVING COORDINATOR-C Moy Kennedy RECEIVING COORDINATOR Work Phone: [facility] 04-27-2023 11:49-0400 SaO2% (BldA) [Mass fraction] 98 % RECEIVING COORDINATOR-C Moy Kennedy RECEIVING COORDINATOR Work Phone: [facility] 04-27-2023 11:49-0400 Systolic blood pressure 109 mm[Hg] RECEIVING COORDINATOR-C Moy Kennedy RECEIVING COORDINATOR Work Phone: [facility] 03-02-2023 14:00-0400 Body temperature 97.7 [degF] RECEIVING COORDINATOR-C Moy Kennedy RECEIVING COORDINATOR Work Phone: [facility] 03-02-2023 14:00-0400 Diastolic blood pressure 69 mm[Hg] RECEIVING COORDINATOR-C Moy Kennedy RECEIVING COORDINATOR Work Phone: [facility] 03-02-2023 14:00-0400 Heart rate 55 /min RECEIVING COORDINATOR-C Moy Kennedy RECEIVING COORDINATOR Work Phone: [facility] 03-02-2023 14:00-0400 Respiratory rate 18 /min RECEIVING COORDINATOR-C Moy Kennedy RECEIVING COORDINATOR Work Phone: [facility] 03-02-2023 14:00-0400 Systolic blood pressure 114 mm[Hg] RECEIVING COORDINATOR-C Moy Kennedy RECEIVING COORDINATOR Work Phone: [facility] 03-02-2023 10:07-0400 Body mass index (BMI) [Ratio] 29.1 kg/m2 RECEIVING COORDINATOR-C Moy Kennedy RECEIVING COORDINATOR Work Phone: [facility] 03-02-2023 10:07-0400 Body temperature 98.6 [degF] RECEIVING COORDINATOR-C Moy Kennedy RECEIVING COORDINATOR Work Phone: [facility] 03-02-2023 10:07-0400 Body weight 92.07 kg RECEIVING COORDINATOR-C Moy Brent RECEIVING COORDINATOR Work Phone: [facility] 03-02-2023 10:07-0400 Diastolic blood pressure 75 mm[Hg] RECEIVING COORDINATOR-C Moy Kennedy RECEIVING COORDINATOR Work Phone: [facility] 03-02-2023 10:07-0400 Heart rate 72 /min RECEIVING COORDINATOR-C Moy Kennedy RECEIVING COORDINATOR Work Phone: [facility] 03-02-2023 10:07-0400 Respiratory rate 16 /min RECEIVING COORDINATOR-C Moy Kennedy RECEIVING COORDINATOR Work Phone: [facility] 03-02-2023 10:07-0400 SaO2% (BldA) [Mass fraction] 96 % RECEIVING COORDINATOR-C Moy Kennedy RECEIVING COORDINATOR Work Phone: [facility] 03-02-2023 10:07-0400 Systolic blood pressure 119 mm[Hg] RECEIVING COORDINATOR-C Moy Kennedy RECEIVING COORDINATOR Work Phone: [facility] 01-05-2023 09:32-0400 Body height 177.8 cm RECEIVING COORDINATOR-C Moy Kennedy RECEIVING COORDINATOR Work Phone: [facility] 01-05-2023 09:32-0400 Body mass index (BMI) [Ratio] 29 kg/m2 RECEIVING COORDINATOR-C Moy Kennedy RECEIVING COORDINATOR Work Phone: [facility] 01-05-2023 09:32-0400 Body weight 91.62 kg RECEIVING COORDINATOR-C Moy Kennedy RECEIVING COORDINATOR Work Phone: [facility] 01-05-2023 08:50-0400 Body mass index (BMI) [Ratio] 29 kg/m2 RECEIVING COORDINATOR-C Moy Kennedy RECEIVING COORDINATOR Work Phone: [facility] 01-05-2023 08:50-0400 Body temperature 98.9 [degF] RECEIVING COORDINATOR-C Moy Kennedy RECEIVING COORDINATOR Work Phone: [facility] 01-05-2023 08:50-0400 Body weight 91.62 kg RECEIVING COORDINATOR-C Moy Damonpkins RECEIVING COORDINATOR Work Phone: [facility] 01-05-2023 08:50-0400 Diastolic blood pressure 79 mm[Hg] RECEIVING COORDINATOR-C Moy Damonpkins RECEIVING COORDINATOR Work Phone: [facility] 01-05-2023 08:50-0400 Heart rate 61 /min RECEIVING COORDINATOR-C Moy Goochland RECEIVING COORDINATOR Work Phone: [facility] 01-05-2023 08:50-0400 Respiratory rate 17 /min RECEIVING COORDINATOR-C Moy Kennedy RECEIVING COORDINATOR Work Phone: [facility] 01-05-2023 08:50-0400 SaO2% (BldA) [Mass fraction] 96 % RECEIVING COORDINATOR-C Moy Brent RECEIVING COORDINATOR Work Phone: [facility] 01-05-2023 08:50-0400 Systolic blood pressure 131 mm[Hg] RECEIVING COORDINATOR-C Moy Goochland RECEIVING COORDINATOR Work Phone: [facility] 11-10-2022 08:04-0400 Body temperature 96.7 [degF] RECEIVING COORDINATOR-C Moy Brent RECEIVING COORDINATOR Work Phone: [facility] 11-10-2022 08:04-0400 Diastolic blood pressure 69 mm[Hg] RECEIVING COORDINATOR-C Moy Goochland RECEIVING COORDINATOR Work Phone: [facility] 11-10-2022 08:04-0400 Heart rate 62 /min RECEIVING COORDINATOR-C Moy Brent RECEIVING COORDINATOR Work Phone: [facility] 11-10-2022 08:04-0400 Respiratory rate 16 /min RECEIVING COORDINATOR-C Moy Kennedy RECEIVING COORDINATOR Work Phone: [facility] 11-10-2022 08:04-0400 SaO2% (BldA) [Mass fraction] 96 % RECEIVING COORDINATOR-C Moy Kennedy RECEIVING COORDINATOR Work Phone: [facility] 11-10-2022 08:04-0400 Systolic blood pressure 118 mm[Hg] RECEIVING COORDINATOR-C Moy Kennedy RECEIVING COORDINATOR Work Phone: [facility] 11-07-2022 14:28-0400 Body mass index (BMI) [Ratio] 28.8 kg/m2 RECEIVING COORDINATOR-C Moy Kennedy RECEIVING COORDINATOR Work Phone: [facility] 11-07-2022 14:28-0400 Body temperature 98.3 [degF] RECEIVING COORDINATOR-C Moy Kennedy RECEIVING COORDINATOR Work Phone: [facility] 11-07-2022 14:28-0400 Body weight 90.94 kg RECEIVING COORDINATOR-C Moy Kennedy RECEIVING COORDINATOR Work Phone: [facility] 11-07-2022 14:28-0400 Diastolic blood pressure 77 mm[Hg] RECEIVING COORDINATOR-C Moy Kennedy RECEIVING COORDINATOR Work Phone: [facility] 11-07-2022 14:28-0400 Heart rate 57 /min RECEIVING COORDINATOR-C Moy Kennedy RECEIVING COORDINATOR Work Phone: [facility] 11-07-2022 14:28-0400 Respiratory rate 16 /min RECEIVING COORDINATOR-C Moy Kennedy RECEIVING COORDINATOR Work Phone: [facility] 11-07-2022 14:28-0400 SaO2% (BldA) [Mass fraction] 96 % RECEIVING COORDINATOR-C Moy Kennedy RECEIVING COORDINATOR Work Phone: [facility] 11-07-2022 14:28-0400 Systolic blood pressure 128 mm[Hg] RECEIVING COORDINATOR-C Moy Kennedy RECEIVING COORDINATOR Work Phone: [facility] 08-10-2022 14:33-0500 Body temperature 97.7 [degF] RECEIVING COORDINATOR-C Moy Kennedy RECEIVING COORDINATOR Work Phone: [facility] 08-10-2022 14:33-0500 Diastolic blood pressure 58 mm[Hg] RECEIVING COORDINATOR-C Moy Kennedy RECEIVING COORDINATOR Work Phone: [facility] 08-10-2022 14:33-0500 Heart rate 61 /min RECEIVING COORDINATOR-C Moy Damonpkins RECEIVING COORDINATOR Work Phone: [facility] 08-10-2022 14:33-0500 Respiratory rate 16 /min RECEIVING COORDINATOR-C Moy Damonpkins RECEIVING COORDINATOR Work Phone: [facility] 08-10-2022 14:33-0500 SaO2% (BldA) [Mass fraction] 96 % RECEIVING COORDINATOR-C Moy Goochland RECEIVING COORDINATOR Work Phone: [facility] 08-10-2022 14:33-0500 Systolic blood pressure 108 mm[Hg] RECEIVING COORDINATOR-C Moy Kennedy RECEIVING COORDINATOR Work Phone: [facility] 08-08-2022 09:56-0500 Body height 177.8 cm RECEIVING COORDINATOR-C Moy Goochland RECEIVING COORDINATOR Work Phone: [facility] 08-08-2022 09:56-0500 Body mass index (BMI) [Ratio] 28.6 kg/m2 RECEIVING COORDINATOR-C Moy Kennedy RECEIVING COORDINATOR Work Phone: [facility] 08-08-2022 09:56-0500 Body weight 90.49 kg RECEIVING COORDINATOR-C Moy Kennedy RECEIVING COORDINATOR Work Phone: [facility] 08-08-2022 08:52-0500 Body mass index (BMI) [Ratio] 28.6 kg/m2 RECEIVING COORDINATOR-C Moy Brent RECEIVING COORDINATOR Work Phone: [facility] 08-08-2022 08:52-0500 Body temperature 98.7 [degF] RECEIVING COORDINATOR-C Moy Goochland RECEIVING COORDINATOR Work Phone: [facility] 08-08-2022 08:52-0500 Body weight 90.49 kg RECEIVING COORDINATOR-C Moy Kennedy RECEIVING COORDINATOR Work Phone: [facility] 08-08-2022 08:52-0500 Diastolic blood pressure 79 mm[Hg] RECEIVING COORDINATOR-C Moy Kennedy RECEIVING COORDINATOR Work Phone: [facility] 08-08-2022 08:52-0500 Heart rate 80 /min RECEIVING COORDINATOR-C Moy Kennedy RECEIVING COORDINATOR Work Phone: [facility] 08-08-2022 08:52-0500 Respiratory rate 16 /min RECEIVING COORDINATOR-C Moy Damonpkins RECEIVING COORDINATOR Work Phone: [facility] 08-08-2022 08:52-0500 SaO2% (BldA) [Mass fraction] 96 % RECEIVING COORDINATOR-C Moy Damonpkins RECEIVING COORDINATOR Work Phone: [facility] 08-08-2022 08:52-0500 Systolic blood pressure 137 mm[Hg] RECEIVING COORDINATOR-C Moy Brent RECEIVING COORDINATOR Work Phone: [facility] 07-11-2022 09:17-0500 Body height 177.8 cm RECEIVING COORDINATOR-C Moy Goochland RECEIVING COORDINATOR Work Phone: [facility] Work Phone: 07-11-2022 09:17-0500 Body mass index (BMI) [Ratio] 28.3 kg/m2 RECEIVING COORDINATOR-C Moy Damonpkins RECEIVING COORDINATOR Work Phone: [facility] Work Phone: 07-11-2022 09:17-0500 Body weight 89.47 kg RECEIVING COORDINATOR-C Moy Damonpkins RECEIVING COORDINATOR Work Phone: [facility] Work Phone: 07-11-2022 08:57-0500 Body mass index (BMI) [Ratio] 28.3 kg/m2 RECEIVING COORDINATOR-C Moy Brent RECEIVING COORDINATOR Work Phone: [facility] 07-11-2022 08:57-0500 Body temperature 98.7 [degF] RECEIVING COORDINATOR-C Moy Damonpkins RECEIVING COORDINATOR Work Phone: [facility] 07-11-2022 08:57-0500 Body weight 89.47 kg RECEIVING COORDINATOR-C Moy Brent RECEIVING COORDINATOR Work Phone: [facility] 07-11-2022 08:57-0500 Diastolic blood pressure 74 mm[Hg] RECEIVING COORDINATOR-C Moy Kennedy RECEIVING COORDINATOR Work Phone: [facility] 07-11-2022 08:57-0500 Heart rate 63 /min RECEIVING COORDINATOR-C Moy Kennedy RECEIVING COORDINATOR Work Phone: [facility] 07-11-2022 08:57-0500 Respiratory rate 16 /min RECEIVING COORDINATOR-C Moy Kennedy RECEIVING COORDINATOR Work Phone: [facility] 07-11-2022 08:57-0500 SaO2% (BldA) [Mass fraction] 95 % RECEIVING COORDINATOR-C Moy Kennedy RECEIVING COORDINATOR Work Phone: [facility] 07-11-2022 08:57-0500 Systolic blood pressure 123 mm[Hg] RECEIVING COORDINATOR-C Moy Kennedy RECEIVING COORDINATOR Work Phone: [facility] 06-15-2022 14:34-0500 Body temperature 96.6 [degF] RECEIVING COORDINATOR-C Moy Kennedy RECEIVING COORDINATOR Work Phone: [facility] Work Phone: 06-15-2022 14:34-0500 Diastolic blood pressure 67 mm[Hg] RECEIVING COORDINATOR-C Moy Kennedy RECEIVING COORDINATOR Work Phone: [facility] Work Phone: 06-15-2022 14:34-0500 Heart rate 71 /min RECEIVING COORDINATOR-C Moy Kennedy RECEIVING COORDINATOR Work Phone: [facility] Work Phone: 06-15-2022 14:34-0500 Respiratory rate 14 /min RECEIVING COORDINATOR-C Moy Kennedy RECEIVING COORDINATOR Work Phone: [facility] Work Phone: 06-15-2022 14:34-0500 SaO2% (BldA) [Mass fraction] 97 % RECEIVING COORDINATOR-C Moy Kennedy RECEIVING COORDINATOR Work Phone: [facility] Work Phone: 06-15-2022 14:34-0500 Systolic blood pressure 130 mm[Hg] RECEIVING COORDINATOR-C Moy Kennedy RECEIVING COORDINATOR Work Phone: [facility] Work Phone: 06-13-2022 08:40-0500 Body mass index (BMI) [Ratio] 28.1 kg/m2 RECEIVING COORDINATOR-C Moy Damonpkins RECEIVING COORDINATOR Work Phone: [facility] 06-13-2022 08:40-0500 Body temperature 98.8 [degF] RECEIVING COORDINATOR-C Moy Damonpkins RECEIVING COORDINATOR Work Phone: [facility] 06-13-2022 08:40-0500 Body weight 88.96 kg RECEIVING COORDINATOR-C Moy Brent RECEIVING COORDINATOR Work Phone: [facility] 06-13-2022 08:40-0500 Diastolic blood pressure 74 mm[Hg] RECEIVING COORDINATOR-C Moy Kennedy RECEIVING COORDINATOR Work Phone: [facility] 06-13-2022 08:40-0500 Heart rate 76 /min RECEIVING COORDINATOR-C Moy Kennedy RECEIVING COORDINATOR Work Phone: [facility] 06-13-2022 08:40-0500 Respiratory rate 16 /min RECEIVING COORDINATOR-C Moy Damonpkins RECEIVING COORDINATOR Work Phone: [facility] 06-13-2022 08:40-0500 SaO2% (BldA) [Mass fraction] 97 % RECEIVING COORDINATOR-C Moy Damonpkins RECEIVING COORDINATOR Work Phone: [facility] 06-13-2022 08:40-0500 Systolic blood pressure 138 mm[Hg] RECEIVING COORDINATOR-C Moy Brent RECEIVING COORDINATOR Work Phone: [facility] 05-16-2022 08:51-0400 Body mass index (BMI) [Ratio] 28.8 kg/m2 RECEIVING COORDINATOR-C Moy Goochland RECEIVING COORDINATOR Work Phone: [facility] 05-16-2022 08:51-0400 Body temperature 98.3 [degF] RECEIVING COORDINATOR-C Moy Brent RECEIVING COORDINATOR Work Phone: [facility] 05-16-2022 08:51-0400 Body weight 90.94 kg RECEIVING COORDINATOR-C Moy Kennedy RECEIVING COORDINATOR Work Phone: [facility] 05-16-2022 08:51-0400 Diastolic blood pressure 77 mm[Hg] RECEIVING COORDINATOR-C Moy Damonpkins RECEIVING COORDINATOR Work Phone: [facility] 05-16-2022 08:51-0400 Heart rate 82 /min RECEIVING COORDINATOR-C Moy Damonpkins RECEIVING COORDINATOR Work Phone: [facility] 05-16-2022 08:51-0400 Respiratory rate 20 /min RECEIVING COORDINATOR-C Moy Brent RECEIVING COORDINATOR Work Phone: [facility] 05-16-2022 08:51-0400 SaO2% (BldA) [Mass fraction] 95 % RECEIVING COORDINATOR-C Moy Brent RECEIVING COORDINATOR Work Phone: [facility] 05-16-2022 08:51-0400 Systolic blood pressure 137 mm[Hg] RECEIVING COORDINATOR-C Moy Brent RECEIVING COORDINATOR Work Phone: [facility] 05-02-2022 13:23-0400 Body mass index (BMI) [Ratio] 28 kg/m2 RECEIVING COORDINATOR-C Moy Brent RECEIVING COORDINATOR Work Phone: [facility] 05-02-2022 13:23-0400 Body temperature 97.4 [degF] RECEIVING COORDINATOR-C Moy Brent RECEIVING COORDINATOR Work Phone: [facility] 05-02-2022 13:23-0400 Body weight 88.56 kg RECEIVING COORDINATOR-C Moy Goochland RECEIVING COORDINATOR Work Phone: [facility] 05-02-2022 13:23-0400 Diastolic blood pressure 75 mm[Hg] RECEIVING COORDINATOR-C Moy Brent RECEIVING COORDINATOR Work Phone: [facility] 05-02-2022 13:23-0400 Heart rate 74 /min RECEIVING COORDINATOR-C Moy Levinkins RECEIVING COORDINATOR Work Phone: [facility] 05-02-2022 13:23-0400 Respiratory rate 18 /min RECEIVING COORDINATOR-C Moy Goochland RECEIVING COORDINATOR Work Phone: [facility] 05-02-2022 13:23-0400 SaO2% (BldA) [Mass fraction] 97 % RECEIVING COORDINATOR-C Moy Damonpkins RECEIVING COORDINATOR Work Phone: [facility] 05-02-2022 13:23-0400 Systolic blood pressure 161 mm[Hg] RECEIVING COORDINATOR-C Moy Damonpkins RECEIVING COORDINATOR Work Phone: [facility] 04-18-2022 09:00-0400 Body mass index (BMI) [Ratio] 28.3 kg/m2 RECEIVING COORDINATOR-C Moy Brent RECEIVING COORDINATOR Work Phone: [facility] 04-18-2022 09:00-0400 Body temperature 98.8 [degF] RECEIVING COORDINATOR-C Moy Kennedy RECEIVING COORDINATOR Work Phone: [facility] 04-18-2022 09:00-0400 Body weight 89.41 kg RECEIVING COORDINATOR-C Moy Kennedy RECEIVING COORDINATOR Work Phone: [facility] 04-18-2022 09:00-0400 Diastolic blood pressure 80 mm[Hg] RECEIVING COORDINATOR-C Moy Kennedy RECEIVING COORDINATOR Work Phone: [facility] 04-18-2022 09:00-0400 Heart rate 58 /min RECEIVING COORDINATOR-C Moy Brent RECEIVING COORDINATOR Work Phone: [facility] 04-18-2022 09:00-0400 Respiratory rate 16 /min RECEIVING COORDINATOR-C Moy Goochland RECEIVING COORDINATOR Work Phone: [facility] 04-18-2022 09:00-0400 SaO2% (BldA) [Mass fraction] 95 % RECEIVING COORDINATOR-C Moy Brent RECEIVING COORDINATOR Work Phone: [facility] 04-18-2022 09:00-0400 Systolic blood pressure 135 mm[Hg] RECEIVING COORDINATOR-C Moy Kennedy RECEIVING COORDINATOR Work Phone: [facility] 04-12-2022 10:30-0400 Body temperature 98.1 [degF] RECEIVING COORDINATOR-C Moy Goochland RECEIVING COORDINATOR Work Phone: [facility] Work Phone: 04-12-2022 10:30-0400 Diastolic blood pressure 63 mm[Hg] RECEIVING COORDINATOR-C Moy Kennedy RECEIVING COORDINATOR Work Phone: [facility] Work Phone: 04-12-2022 10:30-0400 Heart rate 65 /min RECEIVING COORDINATOR-C Moy Kennedy RECEIVING COORDINATOR Work Phone: [facility] Work Phone: 04-12-2022 10:30-0400 Respiratory rate 16 /min RECEIVING COORDINATOR-C Moy Kennedy RECEIVING COORDINATOR Work Phone: [facility] Work Phone: 04-12-2022 10:30-0400 SaO2% (BldA) [Mass fraction] 95 % RECEIVING COORDINATOR-C Moy Kennedy RECEIVING COORDINATOR Work Phone: [facility] Work Phone: 04-12-2022 10:30-0400 Systolic blood pressure 111 mm[Hg] RECEIVING COORDINATOR-C Moy Kennedy RECEIVING COORDINATOR Work Phone: [facility] Work Phone: 04-12-2022 07:44-0400 Body mass index (BMI) [Ratio] 28.4 kg/m2 RECEIVING COORDINATOR-C Moy Kennedy RECEIVING COORDINATOR Work Phone: [facility] Work Phone: 04-12-2022 07:44-0400 Body weight 89.9 kg RECEIVING COORDINATOR-C Moy Kennedy RECEIVING COORDINATOR Work Phone: [facility] Work Phone: 04-11-2022 08:21-0400 Body mass index (BMI) [Ratio] 28.4 kg/m2 RECEIVING COORDINATOR-C Moy Kennedy RECEIVING COORDINATOR Work Phone: [facility] Work Phone: 04-11-2022 08:21-0400 Body temperature 97.5 [degF] RECEIVING COORDINATOR-C Moy Kennedy RECEIVING COORDINATOR Work Phone: [facility] Work Phone: 04-11-2022 08:21-0400 Body weight 89.98 kg RECEIVING COORDINATOR-C Moy Kennedy RECEIVING COORDINATOR Work Phone: [facility] Work Phone: 04-11-2022 08:21-0400 Diastolic blood pressure 71 mm[Hg] RECEIVING COORDINATOR-C Moy Kennedy RECEIVING COORDINATOR Work Phone: [facility] Work Phone: 04-11-2022 08:21-0400 Heart rate 96 /min RECEIVING COORDINATOR-C Moy Kennedy RECEIVING COORDINATOR Work Phone: [facility] Work Phone: 04-11-2022 08:21-0400 Respiratory rate 16 /min RECEIVING COORDINATOR-C Moy Damonpkins RECEIVING COORDINATOR Work Phone: [facility] Work Phone: 04-11-2022 08:21-0400 SaO2% (BldA) [Mass fraction] 100 % RECEIVING COORDINATOR-C Moy Damonpkins RECEIVING COORDINATOR Work Phone: [facility] Work Phone: 04-11-2022 08:21-0400 Systolic blood pressure 130 mm[Hg] RECEIVING COORDINATOR-C Moy Damonpkins RECEIVING COORDINATOR Work Phone: [facility] Work Phone: 04-07-2022 09:59-0400 Body mass index (BMI) [Ratio] 28.1 kg/m2 RECEIVING COORDINATOR-C Moy Damonpkins RECEIVING COORDINATOR Work Phone: [facility] Work Phone: 04-07-2022 09:59-0400 Body temperature 98.8 [degF] RECEIVING COORDINATOR-C Moy Damonpkins RECEIVING COORDINATOR Work Phone: [facility] Work Phone: 04-07-2022 09:59-0400 Body weight 89.01 kg RECEIVING COORDINATOR-C Moy Damonpkins RECEIVING COORDINATOR Work Phone: [facility] Work Phone: 04-07-2022 09:59-0400 Diastolic blood pressure 80 mm[Hg] RECEIVING COORDINATOR-C Moy Kennedy RECEIVING COORDINATOR Work Phone: [facility] Work Phone: 04-07-2022 09:59-0400 Heart rate 72 /min RECEIVING COORDINATOR-C Moy Kennedy RECEIVING COORDINATOR Work Phone: [facility] Work Phone: 04-07-2022 09:59-0400 Respiratory rate 16 /min RECEIVING COORDINATOR-C Moy Kennedy RECEIVING COORDINATOR Work Phone: [facility] Work Phone: 04-07-2022 09:59-0400 SaO2% (BldA) [Mass fraction] 98 % RECEIVING COORDINATOR-C Moy Kennedy RECEIVING COORDINATOR Work Phone: [facility] Work Phone: 04-07-2022 09:59-0400 Systolic blood pressure 133 mm[Hg] RECEIVING COORDINATOR-C Moy Damonpkins RECEIVING COORDINATOR Work Phone: [facility] Work Phone: 04-06-2022 14:44-0400 Body mass index (BMI) [Ratio] 27.8 kg/m2 RECEIVING COORDINATOR-C Moy Kennedy RECEIVING COORDINATOR Work Phone: [facility] Work Phone: 04-06-2022 14:44-0400 Body temperature 98.6 [degF] RECEIVING COORDINATOR-C Moy Kennedy RECEIVING COORDINATOR Work Phone: [facility] Work Phone: 04-06-2022 14:44-0400 Body weight 87.99 kg RECEIVING COORDINATOR-C Moy Damonpkins RECEIVING COORDINATOR Work Phone: [facility] Work Phone: 04-06-2022 14:44-0400 Diastolic blood pressure 79 mm[Hg] RECEIVING COORDINATOR-C Moy Damonpkins RECEIVING COORDINATOR Work Phone: [facility] Work Phone: 04-06-2022 14:44-0400 Heart rate 96 /min RECEIVING COORDINATOR-C Moy Kennedy RECEIVING COORDINATOR Work Phone: [facility] Work Phone: 04-06-2022 14:44-0400 Respiratory rate 16 /min RECEIVING COORDINATOR-C Moy Kennedy RECEIVING COORDINATOR Work Phone: [facility] Work Phone: 04-06-2022 14:44-0400 SaO2% (BldA) [Mass fraction] 97 % RECEIVING COORDINATOR-C Moy Kennedy RECEIVING COORDINATOR Work Phone: [facility] Work Phone: 04-06-2022 14:44-0400 Systolic blood pressure 134 mm[Hg] RECEIVING COORDINATOR-C oMy Kennedy RECEIVING COORDINATOR Work Phone: [facility] Work Phone: 03-24-2022 10:03-0400 Body mass index (BMI) [Ratio] 28 kg/m2 RECEIVING COORDINATOR-C Moy Kennedy RECEIVING COORDINATOR Work Phone: [facility] Work Phone: 03-24-2022 10:03-0400 Body temperature 98.5 [degF] RECEIVING COORDINATOR-C Moy Kennedy RECEIVING COORDINATOR Work Phone: [facility] Work Phone: 03-24-2022 10:03-0400 Body weight 88.5 kg RECEIVING COORDINATOR-C Moy Damonpkins RECEIVING COORDINATOR Work Phone: [facility] Work Phone: 03-24-2022 10:03-0400 Diastolic blood pressure 85 mm[Hg] RECEIVING COORDINATOR-C Moy Damonpkins RECEIVING COORDINATOR Work Phone: [facility] Work Phone: 03-24-2022 10:03-0400 Heart rate 63 /min RECEIVING COORDINATOR-C Moy Damonpkins RECEIVING COORDINATOR Work Phone: [facility] Work Phone: 03-24-2022 10:03-0400 Respiratory rate 16 /min RECEIVING COORDINATOR-C Moy Brent RECEIVING COORDINATOR Work Phone: [facility] Work Phone: 03-24-2022 10:03-0400 SaO2% (BldA) [Mass fraction] 94 % RECEIVING COORDINATOR-C Moy Brent RECEIVING COORDINATOR Work Phone: [facility] Work Phone: 03-24-2022 10:03-0400 Systolic blood pressure 142 mm[Hg] RECEIVING COORDINATOR-C Moy Goochland RECEIVING COORDINATOR Work Phone: [facility] Work Phone: Encounters Encounter Date Encounter Type Care Provider Facility Start: 04-14-2025 ambulatory Moy Kennedy RECEIVING COORDINATOR Facility:[facility] Start: 01-16-[address] Hawa Beatty MD -[facility] Start: 01-16-2025 End: 01-16-[address] Facundo Beatty MD -[facility] Work Phone: Start: 01-16-2025 End: 01-16-2025 ambulatory Moy Kennedy RECEIVING COORDINATOR-C Work Phone: [facility] Work Phone: Start: 12-31-2024 End: 01-04-2025 ambulatory MOY KENNEDY HEAD OF DATA - SAND CUTTING MACHINE OPERATOR Facility:[facility] Start: 12-31-2024 End: 01-04-2025 Outreach Lab MOY KENNEDY HEAD OF DATA - SAND CUTTING MACHINE OPERATOR [facility] Start: 11-08-2024 End: 11-09-2024 ambulatory MOY KENNEDY HEAD OF DATA - SAND CUTTING MACHINE OPERATOR Facility:[facility] Start: 10-30-2024 End: 10-30-2024 ambulatory MOY KENNEDY HEAD OF DATA - SAND CUTTING MACHINE OPERATOR Facility:[facility] Start: 10-21-2024 End: 10-21-2024 Emergency department patient visit STORM POTTS MD Facility:[facility] Start: 10-17-2024 End: 10-17-[address] Facundo Beatty MD -[facility] Work Phone: Start: 10-17-2024 End: 10-17-2024 ambulatory Moy Kennedy RECEIVING COORDINATOR Facility:[facility] Start: 10-15-2024 End: 10-19-2024 ambulatory MOY KENNEDY HEAD OF DATA - SAND CUTTING MACHINE OPERATOR Facility:[facility] Start: 10-15-2024 End: 10-15-2024 Emergency department patient visit MOY KENNEDY HEAD OF DATA - SAND CUTTING MACHINE OPERATOR Facility:[facility] Start: 10-10-2024 End: 10-10-2024 ambulatory Moy Kennedy RECEIVING COORDINATOR-C Work Phone: [facility] Work Phone: Start: 10-10-2024 End: 10-10-2024 Patient encounter procedure Julia Benavides NP-C -Cat Scan, [facility] Work Phone: Start: 10-10-2024 End: 10-10-2024 ambulatory Moy Kennedy RECEIVING COORDINATOR Facility:[facility] Start: 08-29-[address] Hawa Beatty MD -[facility] Start: 07-18-2024 End: 07-18-2024 Patient encounter procedure Julia Benavides NP-C -[facility] Work Phone: Start: 07-18-2024 End: 07-18-2024 ambulatory Moy Kennedy RECEIVING COORDINATOR Facility:[facility] Start: 07-04-2024 End: 07-08-2024 ambulatory MOY KENNEDY HEAD OF DATA - SAND CUTTING MACHINE OPERATOR Facility:[facility] Start: 07-04-2024 End: 07-08-2024 Outreach Lab MOY KENNEDY HEAD OF DATA - SAND CUTTING MACHINE OPERATOR [facility] Start: 05-23-2024 End: 05-23-2024 ambulatory Moy Kennedy RECEIVING COORDINATOR Facility:[facility] Start: 01-11-2024 End: 01-15-2024 ambulatory MOY KENNEDY HEAD OF DATA - SAND CUTTING MACHINE OPERATOR Facility:B Start: 01-11-2024 End: 01-15-2024 Outreach Lab MOY KENNEDY HEAD OF DATA - SAND CUTTING MACHINE OPERATOR [facility] Start: 06-29-2023 End: 07-03-2023 ambulatory MOY Damien BRENT HEAD OF DATA - SAND CUTTING MACHINE OPERATOR Facility:[facility] Start: 06-29-2023 End: 07-03-2023 Outreach Lab MOY Damien BRENT HEAD OF DATA - SAND CUTTING MACHINE OPERATOR [facility] Start: 06-12-2023 End: 06-12-2023 ambulatory RECEIVING COORDINATOR-C Moy Kennedy RECEIVING COORDINATOR Work Phone: [facility] Work Phone: Start: 06-12-2023 End: 06-12-2023 Patient encounter procedure RECEIVING COORDINATOR-C Moy Kennedy RECEIVING COORDINATOR Work Phone: [facility] Work Phone: Start: 04-27-2023 End: 04-27-2023 Patient encounter procedure RECEIVING COORDINATOR-C Moy Kennedy RECEIVING COORDINATOR Work Phone: [facility] Work Phone: Start: 04-27-2023 Registered Recurring RECEIVING COORDINATOR-C Gordon Kennedy RECEIVING COORDINATOR Work Phone: [facility] Start: 03-02-2023 End: 03-02-2023 Patient encounter procedure RECEIVING COORDINATOR-C Moy Kennedy RECEIVING COORDINATOR Work Phone: [facility] Work Phone: Start: 02-20-2023 End: 02-20-2023 ambulatory RECEIVING COORDINATOR-C Moy Kennedy RECEIVING COORDINATOR Work Phone: [facility] Work Phone: Start: 02-20-2023 End: 02-20-2023 Patient encounter procedure RECEIVING COORDINATOR-C Moy Kennedy RECEIVING COORDINATOR Work Phone: [facility] Work Phone: Start: 01-05-2023 Registered Recurring RECEIVING COORDINATOR-C Gordon Kennedy RECEIVING COORDINATOR Work Phone: [facility] Start: 01-05-2023 End: 01-05-2023 Patient encounter procedure RECEIVING COORDINATOR-C Moy Kennedy RECEIVING COORDINATOR Work Phone: [facility] Work Phone: Start: 12-22-2022 End: 12-26-2022 Outreach Lab MOY KENNEDY HEAD OF DATA - SAND CUTTING MACHINE OPERATOR [facility] Start: 11-07-2022 End: 11-07-2022 Patient encounter procedure RECEIVING COORDINATOR-C Moy Kennedy RECEIVING COORDINATOR Work Phone: [facility] Work Phone: Start: 08-10-2022 Registered Recurring RECEIVING COORDINATOR-C Gordon Kennedy RECEIVING COORDINATOR Work Phone: [facility] Start: 08-08-2022 End: 08-08-2022 Patient encounter procedure RECEIVING COORDINATOR-C Moy Kennedy RECEIVING COORDINATOR Work Phone: [facility] Start: 08-02-2022 End: 08-02-2022 ambulatory RECEIVING COORDINATOR-C Moy Kennedy RECEIVING COORDINATOR Work Phone: [facility] Work Phone: Start: 08-02-2022 End: 08-02-2022 Patient encounter procedure RECEIVING COORDINATOR-C Moy Kennedy RECEIVING COORDINATOR Work Phone: [facility] Start: 07-11-2022 Registered Recurring RECEIVING COORDINATOR-C Gordon Kennedy RECEIVING COORDINATOR Work Phone: [facility] Start: 07-11-2022 End: 07-11-2022 Patient encounter procedure RECEIVING COORDINATOR-C Moy Kennedy RECEIVING COORDINATOR Work Phone: [facility] Start: 07-06-2022 End: 07-06-2022 ambulatory RECEIVING COORDINATOR-C Moy Kennedy RECEIVING COORDINATOR Work Phone: [facility] Work Phone: Start: 07-06-2022 End: 07-06-2022 Patient encounter procedure RECEIVING COORDINATOR-Sarah Beth Kennedy RECEIVING COORDINATOR Work Phone: [facility] Start: 06-13-2022 End: 06-13-2022 Patient encounter procedure RECEIVING COORDINATOR-C Moy Kennedy RECEIVING COORDINATOR Work Phone: [facility] Start: 05-16-2022 End: 05-16-2022 Patient encounter procedure RECEIVING COORDINATOR-C Moy Kennedy RECEIVING COORDINATOR Work Phone: [facility] Start: 05-02-2022 End: 05-02-2022 Patient encounter procedure RECEIVING COORDINATOR-C Moy Kennedy RECEIVING COORDINATOR Work Phone: [facility] Start: 04-18-2022 End: 04-18-2022 Patient encounter procedure RECEIVING COORDINATOR-C Moy Kennedy RECEIVING COORDINATOR Work Phone: [facility] Start: 04-12-2022 Non-patient / Non-visit RECEIVING COORDINATOR-C Sallie Kennedy RECEIVING COORDINATOR Work Phone: [facility] Start: 04-12-2022 End: 04-12-2022 Admission to same day surgery center RECEIVING COORDINATOR-Sarah Beth Kennedy RECEIVING COORDINATOR [facility] Start: 04-11-2022 End: 04-11-2022 Patient encounter procedure RECEIVING COORDINATOR-Sarah Beth Kennedy RECEIVING COORDINATOR Work Phone: [facility] Start: 04-07-2022 End: 04-07-2022 Patient encounter procedure RECEIVING COORDINATOR-Sarah Beth Kennedy RECEIVING COORDINATOR Work Phone: [facility] Start: 04-06-2022 End: 04-06-2022 Patient encounter procedure RECEIVING COORDINATOR-Sarah Beth Kennedy RECEIVING COORDINATOR Work Phone: [facility] Start: 03-24-2022 End: 03-24-2022 Patient encounter procedure RECEIVING COORDINATOR-C Moy Damonpkins RECEIVING COORDINATOR Work Phone: [facility] Start: 06-25-2021 End: 06-29-2021 Outreach Lab MOY Quezada BRENT HEAD OF DATA - SAND CUTTING MACHINE OPERATOR [facility] Procedures Date Procedure Procedure Detail Performing Clinician Start: 01-16-2025 Estimated creatinine clearance Moy Kennedy RECEIVING COORDINATOR-C Work Phone: Start: 10-10-2024 CT of soft tissues o f neck with contrast Moy Kennedy RECEIVING COORDINATOR-C Work Phone: Start: 07-18-2024 Measurement of renal function Moy Kennedy RECEIVING COORDINATOR-C Work Phone: Comment on above: GFR Calc Start: 06-12-2023 CT of head without contrast RECEIVING COORDINATOR-C Moy Goochland RECEIVING COORDINATOR Work Phone: Start: 06-12-2023 CT of soft tissues o f neck with contrast RECEIVING COORDINATOR-C Moy Kennedy RECEIVING COORDINATOR Work Phone: Start: 02-20-2023 MRI of orbit, face a nd neck with contrast RECEIVING COORDINATOR-C Moy Kennedy RECEIVING COORDINATOR Work Phone: Start: 11-01-[address] of whole body RECEIVING COORDINATOR -C Moy Kennedy RECEIVING COORDINATOR Work Phone: Start: 08-02-2022 MRI of orbit, face a nd neck with contrast RECEIVING COORDINATOR-C Moy Levinkins RECEIVING COORDINATOR Work Phone: Start: 07-06-2022 CT of head without contrast RECEIVING COORDINATOR-C Moy Kennedy RECEIVING COORDINATOR Work Phone: Start: 07-06-2022 CT of soft tissues o f neck with contrast RECEIVING COORDINATOR-C Moy Kennedy RECEIVING COORDINATOR Work Phone: Start: 04-12-2022 Radiographic procedu re of chest RECEIVING COORDINATOR-C Moy Kennedy RECEIVING COORDINATOR Work Phone: Start: 04-12-2022 Fluoroscopic guidance N P-C Moy Kennedy RECEIVING COORDINATOR Work Phone: Start: 03-30-[address] of whole body RECEIVING COORDINATOR -C Moy Kennedy RECEIVING COORDINATOR Work Phone: Start: 07-24-1984 Hernia repair MOY Kenneth TODD HEAD OF DATA - SAND CUTTING MACHINE OPERATOR Plan of Treatment Date Care Activity Detail Author Start: 01-16-2025 [facility] Start: 10-17-2024 Patient referral [facility] Work Phone: Start: 10-10-2024 Venous catheter care management [facility] Start: 07-18-2024 Vital signs measurements [facility] Start: 05-23-2024 Vital signs measurements [facility] Start: 03-28-2024 Vital signs measurements [facility] Start: 02-01-2024 Vital signs measurements [facility] Start: 12-07-2023 Vital signs measurements [facility] Start: 10-12-2023 Vital signs measurements [facility] Start: 08-17-2023 Vital signs measurements [facility] Start: 06-22-2023 Vital signs measurements [facility] Start: 06-12-2023 Venous catheter care management [facility] Start: 04-27-2023 Vital signs measurements [facility] Start: 03-02-2023 Vital signs measurements [facility] Start: 01-05-2023 Vital signs measurements [facility] Start: 11-10-2022 Vital signs measurements [facility] Start: 11-07-2022 Patient referral [facility] Work Phone: Start: 07-11-2022 [facility] Work Phone: Start: 07-06-2022 Venous catheter care management [facility] Start: 04-18-2022 Patient referral [facility] Work Phone: Start: 04-12-2022 Anesthesia access ce ntral venous circulation ANESTH VASCULAR ACCESS [facility] Work Phone: Start: 04-12-2022 Insj tunneled ctr va d w/subq port age 5 yr/> INSERT TUNNELED CV CATH [facility] Work Phone: Start: 04-12-2022 Patient discharge [facility] Work Phone: Start: 04-11-2022 Patient referral [facility] Work Phone: CBC W Auto Different ial panel - Blood [facility] Work Phone: CBC W Auto Different ial panel - Blood [facility] CBC W Auto Different ial panel - Blood [facility] Comprehensive metabo lic 2000 panel - Serum or Plasma [facility] Lactate dehydrogenas e measurement [facility] Lactate dehydrogenas e measurement [facility] LDH [facility] Work Phone: Patient referral [facility] Work Phone: PET CT of whole body [facility] Work Phone: [facility] Immunizations Immunization Date Immunization Notes Care Provider Fa [facility] 02-07-2023 zoster vaccine recombinant MOY KENNEDY HEAD OF DATA - SAND CUTTING MACHINE OPERATOR [facility] [place] 11-15-2022 zoster vaccine recombinant MOY KENNEDY HEAD OF DATA - SAND CUTTING MACHINE OPERATOR [facility] [place] 12-07-2020 SARS-CoV-2 mRNA (tozinameran) vaccine MOY KENNEDY HEAD OF DATA - SAND CUTTING MACHINE OPERATOR [facility] 11-16-2020 SARS-CoV-2 mRNA (tozinameran) vaccine MOY KENNEDY HEAD OF DATA - SAND CUTTING MACHINE OPERATOR [facility] 04-26-2019 influenza, injectabl e, quadrivalent, preservative free; Translations: [Fluarix PF Quadrivalent ] MOY KENNEDY HEAD OF DATA - SAND CUTTING MACHINE OPERATOR [facility] 02-27-2017 pneumococcal conjuga te vaccine, 13 valent MOY KENNEDY HEAD OF DATA - [facility] 12-13-2016 tetanus toxoid, redu marah diphtheria toxoid, and acellular pertussis vaccine, adsorbed MOY KENNEDY HEAD OF DATA - [facility] Payers Date Payer Category Payer Private Health Insurance [id number] 2023 Unknown [id number] 2022 Medicare [id number] 2022 Self-pay [id number] 2022 Unknown [id number] 2015 Medicare [id number] 1945 Unknown [id number] 2.16.8 [id number] 1945 Unknown [id number] .16.8 [id number] 1945 Unknown [id number] 2.16. [id number] 1945 Unknown [id number] 2.16.8 [id number] 1945 Unknown [id number] 2.16.8 40.1.404321.3.579.2.7 1945 Unknown [id number] 2.16.8 40.1.132052.3.579.2.627 1945 Unknown [id number] 2.16.8 40.1.526956.3.579.2.627 1945 Unknown [id number] 2.16.8 40.1.483612.3.579.2.627 1945 Unknown [id number] 2.16.8 40.1.729305.3.579.2.627 Unknown [id number] 2.16.8 40.1.885107.3.579.2.462 Unknown [id number] 2.16.8 40.1.119070.3.579.2.462 Unknown [id number] 2.16.8 40.1.579100.3.579.2.462 Unknown [id number] 2.16.8 40.1.084910.3.579.2.462 Unknown [id number] 2.16.8 40.1.262809.3.579.2.462 Unknown [id number] 2.16.8 [id number] Unknown [id number] 2.16.8 [id number] Social History Date Type Detail Facility Start: 06-24-2019 End: 04-11-2022 Never smoked tobacco (finding) [facility] Sex Assigned At [facility] Start: 04-11-2022 End: 04-11-2022 Tobacco smoking status NHIS Unknown if ever smoked [facility] Start: 1945 Sex Assigned At Male W [facility] Start: 03-02-2017 End: 10-17-2024 Sex Male (finding) [facility] Medical Equipment Procedure Code Equipment Code Equipment Origin al Text Equipment Identifier Dates Insertion, vascular access port ([id number]) Vascular port/catheter ([id number] FDA Start: 04-12-2022 Goals Date Patient Goal Desired Activity /State Mental Status Date Assessment Result Facility 11-10-2022 Cognitive function Voice/Name [facility] Work Phone: 05-18-2022 Cognitive function Voice/Name [facility] Work Phone: 04-12-2022 Cognitive function Voice/Name [facility] Work Phone: Clinical Notes 07-18-2024 to 01-16-2025 Note Date & Type Note Facility 01-16-2025 Progress note [facility] 01-16-2025 Progress note Note Date/Time January 16, 2025 3:15pm [facility] [place] [address] OFFICE VISIT Date of Service: 01/16/25 1451 MR#: [id number] Acct: [id number] Name: EVY KONG Rep #: [id number] : 1945 From: Facundo reyes MD Age/Sex: 79/M Location: [facility] Status: Signed HPI Subjective Chief Complaint [facility] History Orbital tumor Hyperuricemia Gout Loss of hearing Wears glasses Wears partial dentures Bladder disease Heartburn Non-smoker Encounter for education Follicular lymphoma Lipoma of skin and subcutaneous tissue Hypercholesterolemia Hypertension Surgical History Hx of local excision of skin lesion Hx of hernia repair Social History household members: spouse Smoking Status: Never smoker alcohol intake: never substance use type: does not use caffeine: Yes Type: coffee Number of servings: 1 ROS Constitutional Constitutional: Reports systems reviewed and no addt'l complaints, except as documented; Denies excessive sweating, fatigue, fever(s), night sweats or weightloss Eyes Eyes: Reports systems reviewed and no addt'l complaints, except as documented; Denies change in vision, diplopia or eye pain ENT HEENT: Reports systems reviewed and no addt'l complaints, except as documented; Denies headache(s) or mouth lesions Cardiovascular Cardiovascular: Reports systems reviewed and no addt'l complaints, except as documented; Denies chest pain with activity or edema Respiratory/Chest Respiratory/Chest: Reports systems reviewed and no addt'l complaints, except as documented; Denies dyspnea on exertion Gastrointestinal Gastrointestinal: Reports systems reviewed and no addt'l complaints, except as documented and as per HPI; Denies change in bowel habits Genitourinary Genitourinary: Reports systems reviewed and no addt'l complaints, except as documented, as per HPI and other Details: Urinary symptoms significantly improved following TURP Musculoskeletal Musculoskeletal: Reports systems reviewed and no addt'l complaints, except as documented; Denies arthralgias or back pain Integumentary Integumentary: Reports systems reviewed and no addt'l complaints, except as documented; Denies change in hair or new lesions Neurologic Neurologic: Reports systems reviewed and no addt'l complaints, except as documented; Denies focal weakness, headache(s) or paresthesias Psychiatric Psychiatric: Reports systems reviewed and no addt'l complaints, except as documented Endocrine Endocrinology: Reports systems reviewed and no addt'l complaints, except as documented; Denies excessive sweating or fatigue Hematologic/Lymphatic Hematologic/Lymphatic: Reports systems reviewed and no addt'l complaints, exceptas documented and other Details: Enlarged lymph nodes in the neck resolved ; Denies easy bleeding, easy bruising or lymphadenopathy Allergic/Immunologic Allergic/Immunologic: Reports systems reviewed and no addt'l complaints, except as documented Intake Vital Signs 10/17/24 14:09 01/16/25 14:53 Height 5 ft 10 in 5 ft 10 in Weight: 94.347 kg 90.945 kg BMI 29.8 28.8 BP 132/79 H 164/82 H Blood Pressure Location Rt brachial Lt brachial Position Sitting Sitting Respiration 16 18 Pulse 75 55 L Pulse Source Monitor Monitor Temp 97.8 F 98.4 F Temperature Source Temporal Artery Temporal Artery Pulse Oximetry (%) 93 94 Oxygen Delivery Method room air room air Intake Accompanied by: Self Is patient in pain?: No Allergies No Known Drug Allergies Allergy (Unknown, Verified 01/16/25 14:56) Other Medications ?Medication ?Instructions ?Recorded ?Confirmed ?Type lidocaine-prilocaine 2.5 %-2.5 % 1 applic topical ONCE PRN port 04/07/22 01/16/25 Rx topical cream access 30 days #30 grams ondansetron 4 mg disintegrating 4 mg PO Q8H PRN nausea and 04/07/22 01/16/25 Rx tablet vomiting #30 tabs vitamin-ferrous fumarate 1 tab PO DAILY 01/0501/16/25 History 28 mg iron-folic acid 800 mcg tablet ( Vitamins with Minerals) ascorbate calcium (vitamin C) 500 500 mg PO DAILY 02/2101/16/25 History mg tablet cholecalciferol (vitamin D3) 25 25 mcg PO DAILY 01/16/25 History mcg (1,000 unit) capsule valsartan 80 mg tablet 80 mg PO DAILY 01/16/2512/23 History Have you fallen in the past year?: No Central Venous Access Central Venous Access: Yes Port/PICC: Port CBC, CMP, [facility] January 16, 2025 reviewed in EMR Exam Physical Exam Narrative ECOG 0 Const alert, oriented x3 and no apparent distress General Appearance: cooperative and comfortable Coding Level of Care Code Off vis,est,level 4 Exam Problem Focused Diagnoses Follicular lymphoma of lymph nodes of multiple regions, unspecified follicular lymphoma type C82.98 Follicular lymphoma type: unspecified follicular type Lymphoma site: multiple regions 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 Assessment and Plan Assessment and Plan (1) Follicular lymphoma: Status: Chronic Qualifiers: Follicular lymphoma type: unspecified follicular type Lymphoma site: multiple regions Qualified Code(s): C82.98 - Follicular lymphoma, unspecified, lymph nodes of multiple sites Comment: B CELL (2) Orbital tumor: Status: Chronic Plan 78-year-old gentleman with #1- Follicular lymphoma involving the head and neck area presented with with multiple nonulcerated tumor like scalp lesions and bilateral cervical adenopathy presenting with under 1 year with progressively enlarging scalp lesions and bilateral cervical adenopathy. Clinical stage IV (extranodal and francisco javier involvement), FLIPI score at least 2 (age above 60, stage IV) and therefore at least intermediate risk. Concerning features are the rather rapid course (less than 1 year), high proliferative index and elevated uric acid with no prior history of gout. Received systemic therapy with Bendamustine Rituxan March 2022?August 2022; total 6 cycles. Patient showed a rapid response with resolution of scalp lesions and cervical adenopathy. After conclusion of induction systemic chemotherapy he noted regrowth of hair in the affected areas except for 1. Treatment tolerated with no significant grade 3 or 4 toxicities. 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 Confirmed on MRI of the head and neck area in July 2022. Patient did not appreciate any changes in vision and followed up with his postdoctoral research fellow and no intervention was advised. Although this may represent asymptomatic orbital involvement by his indolent lymphoma It remained stable between March 2022 through January 2023 on MRI imaging which now favors a meningioma. Patient being asymptomatic, [facility] 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 Screening for hepatitis B and C negative. Plan: Based on NCCN guidelines: 1. He concluded systemic chemotherapy immune therapy with Bendamustine Rituxan for remission induction and Rituxan 2 years maintenance end of 2023. Will go onsurveillance. 2. Elevated screening PSA, referred to urology. September 2024 had urine retentionwith obstipation, a Chavira's catheter was placed and he is to follow-up with urology. 3. To continue follow-up with postdoctoral research fellow. Mild optic neuritis was questioned on the MRI of January 2023 but he has not noted any changes in vision orvisual field. 4. Elective imaging for lymphoma in 6 months (March 2025. Patient was seen impression and plan discussed. January 16, 2025 visit was through telehealth video Facundo Beatty MD [employer], [facility] Divisions of Medical Oncology & Hematology Department of Internal Medicine [place] [phone] This note was generated using a voice recognition system software. Although itwas reviewed by the author prior to finalization, it may still contain incorrectwords, spelling, and punctuation that were not noted when reviewing prior to saving. If a clinically significant typo or inaccurately typed phrase is noted, please notify the author. Clinical Quality Measures Falls Risk Screening/Assistive Devices Have you fallen in the past year?: No 01/16/25 1515 <Electronically signed by Facundo duarte MD> Date _ Facundo Beatty MD Cosigner Signature: Date (if applicable) CC: ~ [facility] Work Phone: 1(128) 666-298703-27-2025 Evaluation note* Diagnosis Onset Date Resolution Status Admit Date Follicular lymphoma chronic October 17, 2024 12:55pm Orbital tumor chronic October 17, 2024 12:55pm Follicular lymphoma chronic January 16, 2025 1:15pm Orbital tumor chronic January 16, 2025 1:15pm [facility] Work Phone: 1(841) 933-134803-27-2025 Note. MICRO - Microbiology PROCEDURE: Urine Culture [*1] SOURCE: Urine, Clean Catch BODY SITE: COLLECTED DATE/TIME: 10/15/2024 16:10 EDT RECEIVED DATE/TIME: 10/15/2024 19:20 EDT START DATE/TIME: 10/15/2024 19:20 EDT FREE TEXT SOURCE: FINAL REPORTS Final Report [] Verified Date/Time/Personnel: 10/17/2024 07:32 EDT No growth at 48 hours. PRELIMINARY REPORTS Preliminary Report [] Verified Date/Time/Personnel: 10/16/2024 09:42 EDT No growth to date Preliminary Report [] Verified Date/Time/Personnel: 10/15/2024 19:59 EDT Specimen received in lab. Performing Locations *1: This test was performed at: [facility], [address] [place] [address], [id number]- , [facility]03-20-2025 Radiology Diagnostic study note [facility] Services [address] [place] [id number] Soft Tissue Neck WITH Contrast MR#: [id number] Acct: [id number] Name: EVY KONG Rep #: [id number] : 1945 M 78 From: Bhupendra Zapata MD PCP: ALEXANDER Pereira Status: REG CLI Study:Soft Tissue Neck WITH Contrast Date of Exam: 10/10/24 Exam# [id number] Ordering Dr: Julia Hartman NP PROCEDURE: SOFT TISSUE NECK WITH CONTRAST 10/10/2024 REASON FOR EXAM: FOLLICULAR LYMPHOMA Follow-up examination following chemotherapy. TECHNIQUE: CT of the soft tissues of the neck from the orbits to the upper mediastinum withintravenous contrast. CONTRAST: Isovue 370. VOLUME: 79mL One or more dose reduction techniques were used (e.g., Automated exposure control, adjustment of the mA and/or kV according to patient size, use of iterative reconstruction technique). RADIATION DOSE SUMMARY: CTDlvol: 18.54 mGy DLP: 578.8 mGycm COMPARISON: Comparison is made with prior study dated November 30, 2023. FINDINGS: A right-sided port a catheter is seen with the tip in the superior vena cava. Airway: Midline and patent. Salivary glands: Unremarkable. Lymph nodes: No cervical lymphadenopathy. Thyroid: Unremarkable. Vasculature: Carotid arteries and internal jugular veins are unremarkable. Orbits: There is a 1.1 cm x 1.2 cm rounded soft tissue mass in the intraconal region of the right orbit. Paranasal sinuses and mastoids: Partial opacification of the maxillary sinuses more prominent on the right side. Lung apices: Mild emphysematous changes. Upper mediastinum: Visualized mediastinum is unremarkable. Bones: Multilevel degenerative changes of the spine. Other: CT/Soft Tissue Neck WITH Contrast IMPRESSION: NO CERVICAL LYMPHADENOPATHY. 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 Evaluation + Plan note Future Appointments Appointment Date:12/27/2022 08:20:00 AM Scheduled Provider:MOY KENNEDY APRN, CNP Location:[facility] Appointment Type:PC OV Follow Up Future Scheduled Tests Laboratory* Microalbumin Level Urine 07/01/22 [facility] Evaluation + Plan note Future Appointments Appointment Date:07/04/2023 08:00:00 AM Scheduled Provider:MOY KENNEDY APRN - [place] Location:[facility] Appointment Type:PC OV Follow Up [facility] Evaluation + Plan note Future Appointments Appointment Date:01/16/2024 08:00:00 AM Scheduled Provider:MOY KENNEDY APRN, CNP Location:[facility] Appointment Type:PC OV Follow Up Diagnostic Tests Pending * Renin Activity, Plasma 01/11/24 [facility] Evaluation + Plan note Future Appointments Appointment Date:01/02/2025 08:00:00 AM Scheduled Provider: Location:[facility] Appointment Type:PC Nurse Lab Appointment Date:01/06/2025 08:40:00 AM Scheduled Provider:MOY KENNEDY APRN - [place] Location:[facility] Appointment Type:PC OV Follow Up Future Scheduled Tests Laboratory* Prostate Specific Antigen 01/06/25 * Complete Blood Count 01/06/25 * Lipid Profile 01/06/25 * Albumin/Creatinine Ratio, Random Urine 01/06/25 * Albumin/Creatinine Ratio, Random Urine 07/17/24 * PTH, Intact 01/06/25 * Vitamin D Level 01/06/25 * Complete Metabolic Panel 01/06/25 [facility] Evaluation + Plan note Future Appointments Appointment Date:01/06/2025 08:40:00 AM Scheduled Provider:MOY KENNEDY APRN, CNP Location:[facility] Appointment Type:PC OV Follow Up Future Scheduled Tests Laboratory* Albumin/Creatinine Ratio, Random Urine 01/06/25 * Albumin/Creatinine Ratio, Random Urine 07/17/24 [facility] Evaluation note* Diagnosis Onset Date Resolution Status Follicular lymphoma acute Encounter for education acut e Follicular lymphoma acute Encounter for insertion of venous access port acute Follicular lymphoma acute Follicular lymphoma acute Follicular lymphoma acute Follicular lymphoma acute Follicular lymphoma acute Orbital tumor [facility] Work Phone: Evaluation note* Diagnosis Onset Date Resolution Status Follicular lymphoma acute Follicular lymphoma acute Follicular lymphoma acute Follicular lymphoma acute Follicular lymphoma acute Orbital tumor chronic Follicular lymphoma acute Orbital tumor [facility] Work Phone: Evaluation note* Diagnosis Onset Date Resolution Status 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 Hospital Discharge instructions No data available for this section [facility] Progress note No data available for this section [facility] Reason for referral (narrative)No reason for referral information [facility] Work Phone: Chief Complaint and Reason for Visit Chief Complaint NEW PT - B CELL LYMP TIERNEY CUTANEUOUS REVIEW PET SCAN CHEMO ED PORT PLACEMENT 1.5WKS LABS NEW START TOX CHECK - LABS 4 WKS - LABS - [place]/[facility] 4 WKS - LABS - [place]/[facility] RESTAGING LYMPHOMA 4WKS LABS REVIEW CT [place]/[facility] FULPHILA Reason for Visit Follicular lymphoma Encounter for education Follicular lymphoma Encounter for insertion of venous access port Follicular lymphoma Follicular lymphoma Follicular lymphoma Follicular lymphoma Follicular lymphoma Orbital tumor Chief Complaint 1.5WKS LABS NEW STAR T TOX CHECK - LABS 4 WKS - LABS - [place]/[facility] 4 WKS - LABS - [place]/[facility] RESTAGING LYMPHOMA 4WKS LABS REVIEW CT [place]/[facility] RT ORBITAL TUMOR BEHIND 4 WKS - LABS - [place]/[facility] FULPHILA Reason for Visit Follicular lymphoma Follicular lymphoma Follicular lymphoma Follicular lymphoma Follicular lymphoma Orbital tumor Follicular lymphoma Orbital tumor Chief Complaint 2 MO - LABS - REVIEW PET SCAN 8 WKS - LABS - [facility] FOLLOW UP RIGHT ORBIT NODULE Reason for Visit Follicular lymphoma Orbital tumor Follicular lymphoma Orbital tumor Chief Complaint FOLLOW UP RIGHT ORBI T NODULE 8 WKS - LABS - [facility] - REVIEW MRI [facility] 8 WKS - LABS - [facility] LYMPHOMA Reason for Visit Follicular lymphoma Orbital tumor Follicular lymphoma Orbital tumor Chief Complaint Admit Date 8 WKS - LABS - [facility] July 18 10:28am [facility] August 29, 2024 8 :00am FOLLICULAR LYMPHOMA October 10, 2024 7:3 3am Reason for Visit Admit Date Follicular lymphoma July 18, 2024 10:28am Orbital tumor July 18, 2024 10:28am Chief Complaint Admit Date FOLLICULAR LYMPHOMA October 10, 2024 7:3 3am 3 MO - LABS - REVIEW SCANS October 17, 2 025 12:55pm 3 MO - LABS January 16, 2025 1:15 pm [facility] January 16, 2025 1:45 pm Reason for Visit Admit Date Follicular lymphoma October 17, 2024 12: 55pm Orbital tumor October 17, 2024 12: 55pm Follicular lymphoma January 16, 2025 1:15 pm Orbital tumor January 16, 2025 1:15 pm Advance Directives No Advanced Directives Records Found Advance Directive Response Recorded Date/ Time Advance Directives No June 9:30am Living Will No July 11 9:30am Power of Ice Cutter No July 11, 2022 9:30am Advance Directive Response Recorded Date/ Time Advance Directives No August 10, 2022 2:33pm Living Will No August 10 2:33pm Power of Ice Cutter No August 10, 2022 2:33pm Advance Directive Response Recorded Date/ Time Advance Directives No August 3:40pm Living Will No February 15th, 2 023 3:40pm Power of Ice Cutter No September 07, 2022 3:40pm Advance Directive Response Recorded Date/ Time Advance Directives No April 27, 2023 11:34am Living Will No April 27 11:34am Power of Ice Cutter No April 27, 2 023 11:34am Advance Directive Response Recorded Date/ Time Living Will No October 12, 2023 11:31am Do you have a Healthcare Power of Ice Cutter? No October 12, 2023 11:31am Living Will No July 18, 2 024 2:15pm Do you have a Healthcare Power of Ice Cutter? No July 18, 2024 2:15pm Advance Directives No June 2:15pm Advance Directive Response Recorded Date/ Time Living Will No July 18, 2 024 2:15pm Do you have a Healthcare Power of Ice Cutter? No July 18, 2024 2:15pm Advance Directives No June 2:15pm Summary Purpose Family History No Family History Records Found Additional Source Comments Care Teams (unrecognized sec tion and content) Team Status: Active Member Role Status Dates Moy Kennedy RECEIVING COORDINATOR, RECEIVING COORDINATOR-C Primary Care Provider Active Team Status: Inactive Member Role Status Dates Moy Kennedy RECEIVING COORDINATOR, RECEIVING COORDINATOR-C Primary Care Provider, Referring Provider Active Dr. Facundo Beatty MD Attending Provider Active Team Status: Inactive Member Role Status Dates Moy Kennedy RECEIVING COORDINATOR, RECEIVING COORDINATOR-C Primary Care Provider, Referring Provider Active Julia Benavides RECEIVING COORDINATOR, RECEIVING COORDINATOR-C Attending Provider Active Team Status: Inactive Member Role Status Dates Moy Kennedy RECEIVING COORDINATOR, RECEIVING COORDINATOR-C Primary Care Provider Active Dr. Facundo Beatty MD Attending Provider Active Team Status: Active Member Role Status Dates Moy Kennedy RECEIVING COORDINATOR, RECEIVING COORDINATOR-C Primary Care Provider Active Dr. Facundo Beatty MD Attending Provider, Referrin g Provider Active Team Status: Inactive Member Role Status Dates Moy Kennedy NP, RECEIVING COORDINATOR-C Primary Care Provider Active Dr. Facundo Beatty MD Attending Provider, Referrin g Provider Active Team Status: Inactive Member Role Status Dates Moy Kennedy NP, RECEIVING COORDINATOR-C Primary Care Provider, Referring Provider Active Julia Benavides NP, RECEIVING COORDINATOR-C Active Dr. Facundo Beatty MD Attending Provider Active Team Status: Inactive Member Role Status Dates Moy Kennedy RECEIVING COORDINATOR, RECEIVING COORDINATOR-C Primary Care Provider Active Start: July 182023 End: July 18, 2024 Moy Kennedy RECEIVING COORDINATOR, RECEIVING COORDINATOR-C Referring Provider Active Start: June End: July 18, 2024 Julia Benavides RECEIVING COORDINATOR, RECEIVING COORDINATOR-C Attending Provider Active Start: July 18, 2024 End: July 18, 2024 Team Status: Active Member Role Status Dates Moy Kennedy RECEIVING COORDINATOR, RECEIVING COORDINATOR-C Primary Care Provider Active Start: August Dr. Facundo Beatty MD Attending Provider Active Start: August 29, 2024 Dr. Facundo Beatty MD Referring Provider Active Start: August 29, 2024 Team Status: Inactive Member Role Status Dates Moy Kennedy RECEIVING COORDINATOR, RECEIVING COORDINATOR-C Primary Care Provider Active Start: October 10, 2024 End: October 10, 2024 Julia Benavides RECEIVING COORDINATOR, RECEIVING COORDINATOR-C Attending Provider Active Start: October 10, 2024 End: October 10, 2024 Julia Makayla RECEIVING COORDINATOR, RECEIVING COORDINATOR-C Referring Provider Active Start: October 10, 2024 End: October 10, 2024 Team Status: Inactive Member Role Status Dates Moy Kennedy RECEIVING COORDINATOR, RECEIVING COORDINATOR-C Primary Care Provider Active Start: October 17, 2024 End: October 17, 2024 Moy Kennedy RECEIVING COORDINATOR, RECEIVING COORDINATOR-C Referring Provider Ac tive Start: October 17, 2024 End: October 17, 2024 Dr. Facundo Beatty MD Attending Provider Active Start: October 17, 2024 End: October 17, 2024 Team Status: Inactive Member Role Status Dates Moy Kennedy RECEIVING COORDINATOR, RECEIVING COORDINATOR-C Primary Care Provider Active Start: January 16, 2025 End: January 16, 2025 Moy Kennedy RECEIVING COORDINATOR, RECEIVING COORDINATOR-C Referring Provider Ac tive Start: January 16, 2025 End: January 16, 2025 Dr. Facundo Beatty MD Attending Provider Active Start: January 16, 2025 End: January 16, 2025 Team Status: Active Member Role Status Dates Moy Kennedy RECEIVING COORDINATOR, RECEIVING COORDINATOR-C Primary Care Provider Active Start: January 16, 2025 Dr. Facundo Beatty MD Attending Provider Active Start: January 16, 2025 Dr. Facundo Beatty MD Referring Provider Active Start: January 16, 2025 Goals (unrecognized section and content) Goals may be documented in a n alternate section (unrecognized sect ion and content) No Status Records FoundNo Status Records FoundNo Status Records Found INFORMATION SOURCE (unrecogn ized section and content) DATE CREATED AUTHOR 01/17/2024 [facility] ([facility]) DATE CREATED AUTHOR AUTHOR'S ORGANIZ ATION 01/07/2025 [facility] DATE CREATED AUTHOR AUTHOR'S ORGANIZ ATION 04/09/2025 [facility] FOR RECORDS PERTAINING TO PATIENTS WHO ARE OR HAVE BEEN ENROLLED IN A CHEMICAL DEPENDENCY/SUBSTANCEABUSE PROGRAM, SOME INFORMATION MAY BE OMITTED. This clinical summary was aggregated from multiple sources. Caution should be exercised in using it in the provision of clinical care. This summary normalizes information from multiple sources, and as a consequence, information in this document may materially change the coding, format and clinical context of patient data. In addition, data may be omitted in some cases. CLINICAL DECISIONS SHOULD BE BASED ON THE PRIMARY CLINICAL RECORDS. [facility] [employer] [facility]. provides no warranty or guarantee of the accuracy or completeness of information in this document.
== END | disposition home or self-care (01) ==
PROVIDERS: PCP Nurse Practitioner Family; Referring Provider Internal Medicine Hematology & Oncology; Visit Provider Internal Medicine Hematology & Oncology
DX: C82.98 Follicular lymphoma, unspecified, lymph nodes of multiple sites (principal); D17.30 Benign lipomatous neoplasm of skin and subcutaneous tissue of unspecified sites
CPT/HCPCS: 70491; Q9967; A4216